=== PATIENT | female | born 1975 | race Caucasian/White ===

== ENCOUNTER 2023-08-18 15:04 | Outpatient (REF) | payer MEDICAID, SELFPAY ==
[2023-08-20 11:48] LABS: C. trachomatis RNA TMA NOT DETECTED (NOT DETECTED); Candida glabrata RNA NOT DETECTED (NOT DETECTED); Candida species RNA NOT DETECTED (NOT DETECTED); N. gonorrhoeae RNA TMA NOT DETECTED (NOT DETECTED); Trichomonas vaginalis RNA NOT DETECTED (NOT DETECTED)
[2023-08-21 08:53] LABS: HPV mRNA E6/E7 rflx Not Detected (Not Detected)
== END 2023-08-18 15:05 | disposition home or self-care (01) ==
LOC: HO.CHCLNP 15:04
PROVIDERS: Visit Provider Advanced Practice Midwife
DX: Z12.4 Encounter for screening for malignant neoplasm of cervix (principal); Z11.51 Encounter for screening for human papillomavirus (HPV); N89.8 Other specified noninflammatory disorders of vagina
CPT/HCPCS: 36415; 81513; 87481; 87491; 87591; 87624; 87661; 88142

== ENCOUNTER 2024-05-12 11:29 | Outpatient (REF) | payer MEDICAID, SELFPAY ==
[2024-05-12 14:16] LABS: MANUAL DIFF FLAG NO
[2024-05-12 14:26] LABS: Basophils Absolute Auto 0.1 X10*3/uL (0.0-0.2); Basophils Percent Auto 0.8 % (0-2); Eosinophils Absolute Auto 0.2 X10*3/uL (0.0-0.4); Eosinophils Percent Auto 2.3 % (0-4); Hematocrit 43.4 % (37.0-47.0); Hemoglobin 14.7 g/dl (12.0-16.0); Imm Gran Abs Auto 0.05 X10*3/uL (0.00-0.03); Imm Gran Pct Auto 0.6 % (0.0-0.4); Lymphocytes Absolute Auto 2.4 X10*3/uL (1.2-4.9); Lymphocytes Percent Auto 26.2 % (20-40); Mean Corpuscular HGB Conc 33.9 g/dl (31.0-35.0); Mean Corpuscular Hemoglobin 30.1 pg (27.0-33.0); Mean Corpuscular Volume 88.9 fL (80.0-98.0); Mean Platelet Volume 9.4 fL (9.4-12.3); Monocytes Absolute Auto 0.7 X10*3/uL (0.1-1.2); Monocytes Percent Auto 7.5 % (2-11); Neutrophils Absolute Auto 5.7 x10*3/uL (2.0-8.3); Neutrophils Percent Auto 62.6 % (45-73); Platelet Count 346 X10*3/uL (160-400); Red Blood Count 4.88 X10*6/uL (4.20-5.50); Red Cell Distribution Width 12.7 % (11.0-16.0); White Blood Count 9.1 X10*3/uL (4.8-10.8)
[2024-05-12 15:05] LABS: Alanine Aminotransferase 13 U/L (0-31); Alkaline Phosphatase 76 U/L (39-117); Anion Gap 15 (12-20); Aspartate Amino Transferase 12 U/L (5-31); Bilirubin Total 0.3 mg/dL (0.0-1.0); Blood Urea Nitrogen 12 mg/dL (9-16); Calcium 9.5 mg/dL (8.4-10.2); Carbon Dioxide 22 mmol/L (22-29); Chloride 105 mmol/L (96-108); Estimated Glomerular Filt Rate > 60; Glucose Random 98 mg/dL (60-115); Potassium 3.6 mmol/L (3.3-5.1); Sodium 138 mmol/L (135-145); Total Protein 6.9 g/dL (6.5-8.0)
[2024-05-12 15:12] LABS: Folate 10.8 ng/mL (> or = 4.0); Vitamin B12 385 pg/mL (200-900)
[2024-05-12 15:23] LABS: TSH reflex Free T4 0.59 uIU/mL (0.32-4.0)
[2024-05-16 14:12] LABS: Methylmalonic Acid 129 nmol/L (55-335)
== END 2024-05-12 11:30 | disposition home or self-care (01) ==
LOC: HO.CHCLDS 11:29
PROVIDERS: Visit Provider Family Medicine
DX: R42 Dizziness and giddiness (principal)
CPT/HCPCS: 36415; 80053; 82607; 82746; 83921; 84443; 85025

== ENCOUNTER 2024-08-23 13:32 | Outpatient (REF) | payer MEDICAID, SELFPAY ==
[2024-08-25 06:23] LABS: Lyme Abs Screen <0.90 index
== END 2024-08-23 13:33 | disposition home or self-care (01) ==
LOC: HO.CHCLDS 13:32
PROVIDERS: Visit Provider Student in an Organized Health Care Education/Training Program
DX: R42 Dizziness and giddiness (principal)
CPT/HCPCS: 36415; 86617; 86618

== ENCOUNTER 2025-05-30 09:47 | Outpatient (REF) | payer MEDICAID, SELFPAY ==
--- OUTSIDE RECORDS SUMMARY | 2025-05-30 09:00 | XMS_ITS | Encounter Summary ---
Author Organization [employer] Address [address] [place] [address] 7 [place] [address] Care Team Providers Care Insurance Advisor Name Role Phone María Barron MD Primary Care Provider [phone] Reason for Referral * Consultation (Routine) - Pending Review Specialty Diagnoses / Procedures Referred By Aime gamboa Referred To Contact Psychiatry Diagnoses Anxiety María Barron MD [address] [place] [address] Phone: tel: fax: Referral ID Status Reason Start Date Expiration Date Visits Requested Visits Authorized [id number] Pending Review Specialty Services Required 05/30/2025 11/28/2026 1 1 Reason for Visit * Reason Comments Diabetes fu Encounter Details Date Type Department Care Team ([facility] st Contact Info) Description 05/30/2025 9:00 AM EDT Office Visit [facility] MED & PEDS [address] [place], [place] [phone] María Barron MD [address] [place], [place] [phone] Primary hypertension (Primary Dx); Anxiety; Vertigo; Spasm of thoracic back muscle; Screening for colon cancer Social History Tobacco Use Types Packs/Day Years Used Date Smoking Tobacco: Former Cigarettes 0.5 14.4 1 - 10/29/2024 Smokeless Tobacco: Never Tobacco Cessation:Counseling Given: Not Answered Alcohol Use Standard Drinks/Week Comments Never 0 (1 standard drink = 0.6 oz pur e alcohol) very occasional Depression Answer Date Recorded Patient Health Questionnaire-9 Score 0 10/20/2024 Patient Health Questionnaire-9 Score 0 10/20/2024 Last PHQ-9: Questionnaire Data Not on file 0 10/20/2024 Housing Stability Answer Date Recorded What is your housing situation today? I have jaycob ryan 05/22/[address] you li ve. Do you have problems with any of the following? None of the above 05/22/2025 Food Insecurity Answer Date Recorded Within the past 12 months, y ou worried that your food would run out before you got money to buy more: Never True 05/22/2025 Within the past 12 months,th e food you bought just didn't last and you didn't have enough money to get more: Never True Transportation Answer Date Recorded In the past 12 months, has l ack of transportation kept you from medical appts, meetings, work or from getting things needed for daily living? No 05/22/2025 Utilities Answer Date Recorded In the past 12 months, has t he electric, gas, oil or water company threatened to shut off services in your home? No 05/22/2025 Depression Answer Date Recorded Patient Health Questionnaire-2 Score 0 10/20/2024 Internet Access Answer Date Recorded Internet Access Q1 Yes 05/22/2025 Internet Access Q2 Not on file 05/22/2025 Comments No Sex and Gender Information Value Date Recorded Sex Assigned at Female 07/28/2022 10:22 AM EDT Legal Sex Female 10:22 AM EDT Gender Identity Female 07/28/2022 10:22 AM EDT Sexual Orientation Straight 07/28/2022 10 :22 AM EDT documented as of this encounter Last Filed Vital Signs Vital Sign Reading Time Taken Comments Blood Pressure 133/86 05/30/2025 9:15 AM EDT Pulse 97 05/30/2025 9:15 AM EDT Temperature 36.4 C (97.6 F) 05/30/2025 9:15 AM EDT Respiratory Rate 18 05/30/2025 9:15 AM EDT Oxygen Saturation 96% 05/30/2025 9:15 AM EDT Inhaled Oxygen Concentration - - Weight 91.6 kg (202 lb) 05/30/2025 9:15 AM EDT Height 160 cm (5' 3 ) 05/30/2025 9:15 AM EDT Body Mass Index 35.78 05/30/2025 9:15 AM EDT documented in this encounter Progress Notes * María Barron MD - 05/30/2025 9:00 AM EDT Subjective Patient ID: Vlad Rodas is a 50 y.o. female who presents for HTN Hypertension This is a chronic problem. The problem is unchanged. The problem is controlled. Pertinent negativesinclude no anxiety, blurred vision, chest pain, headaches, malaise/fatigue, neck pain, orthopnea, palpitations, PND, shortness of breath or sweats. Risk factors for coronary artery disease include obesity and sedentary lifestyle. Review of Systems Constitutional: Negative. Negative for malaise/fatigue. Eyes: Negative for blurred vision. Respiratory: Negative. Negative for shortness of breath. Cardiovascular: Negative for chest pain, palpitations, orthopnea and PND. Gastrointestinal: Negative. Genitourinary: Negative. Musculoskeletal: Negative for neck pain. Neurological: Negative for headaches. Psychiatric/Behavioral: The patient is nervous/anxious. Objective Physical Exam Constitutional: Appearance: Normal appearance. Cardiovascular: Rate and Rhythm: Normal rate and regular rhythm. Pulses: Normal pulses. Heart sounds: Normal heart sounds. Pulmonary: Effort: Pulmonary effort is normal. Abdominal: General: Abdomen is flat. Neurological: Mental Status: She is alert. Assessment/Plan Diagnoses and all orders for this visit: Primary hypertension Comments: Well controlled No changes in meds Maintain a low-sodium diet (less than 2 grams per day). Maintain a regular cardiovascular exercise program. Advised to maintain a low-fat, low-cholesterol diet. Counseled regarding importance of weight loss. Counseled re: potential co-morbidities including cardiovascular disease. Orders: - Basic Metabolic Panel; Future - Lipid Panel, Standard; Future - Hepatic Function Panel; Future Anxiety - ALPRAZolam (Xanax) 0.5 MG tablet; TAKE 1 TABLET BY MOUTH BID - Referral to Psychiatry; Future Vertigo Comments: Mostly related to anxiety xanax increased to BID referred to N Orders: - POCT Glucose Spasm of thoracic back muscle Comments: Started On Flexeril and Ibuprofen Started on Topical volatren Gel Advised Warm compress and Stretching Orders: - cyclobenzaprine (Flexeril) 10 MG tablet; Take 1 tablet (10 mg) by mouth at bedtime for 10 days. Screening for colon cancer - Cologuard?? colon cancer screening documented in this encounter Plan of Treatment Upcoming Encounters Date Type Department Care Team (Late st Contact Info) Description 06/19/2025 10:00 AM EDT Telemedicine [facility] MED & PEDS [address] [place] [address] Donna Upton, KAJAL [address] [place] [address] 06/28/2025 8:45 AM EDT Telemedicine [facility] MED & PEDS [address] [place] [address] María Barron MD [address] [place] [address] Scheduled Orders Name Type Priority Associated Diagnoses Orde r Schedule Cologuard colon cancer screening Lab Routine Screening for colon cancer Ordered: 05/30/2025 Basic Metabolic Panel Lab Routine Primary hypertension Expected: 05/30/2025 (Approximate), Expires: 05/30/2026 Lipid Panel, Standard Lab Routine Primary hypertension Expected: 05/30/2025 (Approximate), Expires: 05/30/2026 Hepatic Function Panel Lab Routine Primary hypertension Expected: 05/30/2025 (Approximate), Expires: 05/30/2026 Scheduled Referrals Name Type Priority Associated Diagnoses Order Schedule Referral to Psychiatry Outpatient Referral Routine Anxiety Expected: 05/30/2025 (Approximate), Expires: 11/27/2026 documented as of this encounter Procedures Procedure Name Priority Date/Time Associated Diagnosis Comments POCT GLUCOSE Routine 05/30/2025 9:22 AM EDT Vertigo documented in this encounter Results * POCT Glucose (05/30/2025 9:22 AM EDT) Glucose Blood, POC 108 60 - 200 mg/dL QC Media Lot # [id number] Lot# Expiration Date Blood Capillary blood specimen / Unknown 05/30/2025 9:22 AM EDT María Barron MD POINT OF CARE TEST ENTER/EDIT OR DERABLES Final Result documented in this encounter Visit Diagnoses Diagnosis Primary hypertension- Primary Unspecified essential hypertension Anxiety Anxiety state, unspecified Vertigo Dizziness and giddiness Spasm of thoracic back muscle Screening for colon cancer Special screening for malignant neoplasms, colon documented in this encounter Additional Health Concerns Assessment Noted Time PHQ-9 Depression Total Score: 0 10/20/19 25 10:22 AM EST documented as of this encounter Care Teams Insurance Advisor Relationship Specialty Start Date End Date María Barron MD [address] [place] [id number] PCP - General Family Medicine 10/04/13 documented as of this encounter
--- OUTSIDE RECORDS SUMMARY | 2025-05-30 10:57 | XMS_ITS | Encounter Summary ---
Author Organization [employer] Address [address] [facility] 7t [place] [address] Care Team Providers Care Lean Specialist Name Role Phone María Barron MD Primary Care Provider [phone] Reason for Visit * Reason Comments Med Refill Encounter Details Date Type Department Care Team ([facility] Contact Info) Description 01/16/2025 Refill [facility] MED & PEDS [address] [place], [place] [phone] María Barron MD [address] [place] [address] Hypertension, unspecified type Social History Tobacco Use Types Packs/Day Years Used Date Smoking Tobacco: Every Day Cigarettes 0.5 15 Started: 06/28/2012 Smokeless Tobacco: Never Alcohol Use Standard Drinks/Week Comments Never 0 (1 standard drink = 0.6 oz pur e alcohol) very occasional Depression Answer Date Recorded Patient Health Questionnaire-9 Score 0 10/20/2024 Patient Health Questionnaire-9 Score 0 10/20/2024 Last PHQ-9: Questionnaire Data Not on file 0 10/20/2024 Housing Stability Answer Date Recorded What is your housing situation today? I have jaycob ryan 12/21/[address] you li ve. Do you have problems with any of the following? None of the above 12/21/2023 Food Insecurity Answer Date Recorded Within the past 12 months, y ou worried that your food would run out before you got money to buy more: Never True 12/21/2023 Within the past 12 months,th e food you bought just didn't last and you didn't have enough money to get more: Never True Transportation Answer Date Recorded In the past 12 months, has l ack of transportation kept you from medical appts, meetings, work or from getting things needed for daily living? No 12/21/2023 Utilities Answer Date Recorded In the past 12 months, has t he electric, gas, oil or water company threatened to shut off services in your home? No 12/21/2023 Depression Answer Date Recorded Patient Health Questionnaire-2 Score 0 10/20/2024 Comments No Sex and Gender Information Value Date Recorded Sex Assigned at Female 07/28/2022 10:22 AM EDT Legal Sex Female 10:22 AM EDT Gender Identity Female 07/28/2022 10:22 AM EDT Sexual Orientation Straight 07/28/2022 10 :22 AM EDT documented as of this encounter Plan of Treatment Upcoming Encounters Date Type Department Care Team (Late st Contact Info) Description 06/19/2025 10:00 AM EDT Telemedicine [facility] MED & PEDS [address] [place] [address] Donna Upton, KAJAL [address] [place] [address] 06/28/2025 8:45 AM EDT Telemedicine [facility] MED & PEDS [address] [place] [address] María Barron MD [address] [place] [address] documented as of this encounter Visit Diagnoses Diagnosis Hypertension, unspecified type documented in this encounter Additional Health Concerns Assessment Noted Time PHQ-9 Depression Total Score: 0 10/20/19 25 10:22 AM EST documented as of this encounter Care Teams Lean Specialist Relationship Specialty Start Date End Date María Barron MD [address] [place] [address] PCP - General Family Medicine 10/04/13 documented as of this encounter
--- OUTSIDE RECORDS SUMMARY | 2025-05-30 10:57 | XMS_ITS | Encounter Summary ---
Author Organization [employer] Address [address] [facility] 7t [place] [address] Care Team Providers Care Canary Breeder Name Role Phone María Barron MD Primary Care Provider [phone] Reason for Visit * Reason Comments Med Refill Encounter Details Date Type Department Care Team ([facility] Contact Info) Description 10/26/[address] [facility] MED & PEDS [address] [place], [place] [phone] María Barron MD [address] [place] [address] Anxiety Social History Tobacco Use Types Packs/Day Years Used Date Smoking Tobacco: Every Day Cigarettes 0.5 15 Started: 06/28/2012 Smokeless Tobacco: Never Alcohol Use Standard Drinks/Week Comments Never 0 (1 standard drink = 0.6 oz pur e alcohol) very occasional Housing Stability Answer Date Recorded What is your housing situation today? I have jaycob ryan 07/13/[address] you li ve. Do you have problems with any of the following? None of the above 07/13/2023 Food Insecurity Answer Date Recorded Within the past 12 months, y ou worried that your food would run out before you got money to buy more: Never True 07/13/2023 Within the past 12 months,th e food you bought just didn't last and you didn't have enough money to get more: Never True Transportation Answer Date Recorded In the past 12 months, has l ack of transportation kept you from medical appts, meetings, work or from getting things needed for daily living? No 07/13/2023 Utilities Answer Date Recorded In the past 12 months, has t he electric, gas, oil or water company threatened to shut off services in your home? No 07/13/2023 Comments No Sex and Gender Information Value [...] Description 06/19/2025 10:00 AM EDT Telemedicine [facility] MED & PEDS [address] [place] [address] Donna Upton RN [address] [place] [address] 06/28/2025 8:45 AM EDT Telemedicine [facility] MED & PEDS [address] [place] [address] María Barron MD [address] [place] [address] documented as of this encounter Visit Diagnoses Diagnosis Anxiety Anxiety state, unspecified documented in this encounter Care Teams Canary Breeder Relationship Specialty Start Date End Date María Barron MD [address] [place] [address] PCP - General Family Medicine 10/04/13 documented as of this encounter
--- OUTSIDE RECORDS SUMMARY | 2025-05-30 10:57 | XMS_ITS | Encounter Summary ---
Author Organization [facility] Address [address] [place] [address] Phone Care Team Providers Care Rescue Worker Name Role Phone María Barron MD Primary Care Provider [phone] Encounter Details Date Type Department Care Team (Late st Contact Info) Description 04/23/2021 Procedure Pass [facility] Cat Scan [address] [place] [address] Social History Tobacco Use Types Packs/Day Years Used Date Smoking Tobacco: Every Day Cigarettes Alcohol Use Standard Drinks/Week Comments Yes 0 (1 standard drink = 0.6 oz pur e alcohol) occ Comments Unknown Sex and Gender Information Value Date Recorded Sex Assigned at Female 12/01/2023 8:50 AM EST Legal Sex Female 11:04 AM EDT Gender Identity Female 12/01/2023 8:50 AM EST Sexual Orientation Straight 12/01/2023 8: 50 AM EST documented as of this encounter Functional Status * Calculated C-SSRS Risk Score (Lifetime/Recent) Answer Date of Assessment Author No Risk Indicated 04/23/2021 11:10 AM EDT Dominique Kimball RN * [place] Suicide Severity Rating Scale (Screener/Recent Self-Report) Question Answer Date of Assessment Author 1. Wish to be (Past 1 Month) No 021 11:10 AM EDT Dominique Kimball RN 2. Non-Specific Active Suici del Thoughts (Past 1 Month) No 04/23/2021 11:10 AM EDT Franko Kimball RN 6. Suicidal Behavior (Lifetime) No 11:10 AM EDT Dominique Kimball RN documented as of this encounter Plan of Treatment Not on file documented as of this encounter Visit Diagnoses Not on filedocumented in this encounter Additional Health Concerns Infection Onset Date Last Indicated Resolved Time CoV-Risk 06/09/2022 06/09/2022 06/20/2022 1:23 AM EDT documented as of this encounter Care Teams Rescue Worker Relationship Specialty Start Date End Date María Barron MD [address] [place] [address] PCP - General Family Medicine 04/23/21 documented as of this encounter Additional Source Comments The information contained in this document represents components of the legal health record. It is not the complete legal health record.[facility]
--- OUTSIDE RECORDS SUMMARY | 2025-05-30 10:57 | XMS_ITS | Encounter Summary ---
Author Organization [facility] Address [address] [place] [address] Phone Care Team Providers Care Bread Wrapper Name Role Phone María Barron MD Primary Care Provider [phone] Encounter Details Date Type Department Care Team (Late st Contact Info) Description 02/04/2022 Procedure Pass [facility] Cat Scan [address] [place] [address] Social History Tobacco Use Types Packs/Day Years [...] Date of Assessment Author No Risk Indicated 02/04/2022 7:46 AM EDT Jewel Godfrey * [place] Suicide Severity Rating Scale (Screener/Recent Self-Report) Question Answer Date of Assessment Author 1. Wish to be (Past 1 Month) No 022 7:46 AM GASPERT Jewel Godfrey 2. Non-Specific Active Suici del Thoughts (Past 1 Month) No 02/04/2022 7:46 AM GASPERT Abel Godfrey 6. Suicidal Behavior (Lifetime) No 7:46 AM EDT Jewel Godfrey documented as of this encounter Plan of Treatment Not on file documented as of this encounter Visit Diagnoses Not on filedocumented in this encounter Additional Health Concerns Infection Onset Date Last Indicated Resolved Time CoV-Risk 06/09/2022 06/09/2022 06/20/2022 1:23 AM EDT documented as of this encounter Care Teams Bread Wrapper Relationship Specialty Start Date End Date María Barron MD [address] [place] [address] PCP - General Family Medicine 04/23/21 documented as of this encounter Additional Source Comments The information contained in this document represents components of the legal health record. It is not the complete legal health record.[facility]
--- OUTSIDE RECORDS SUMMARY | 2025-05-30 10:57 | XMS_ITS | Encounter Summary ---
Author Organization [employer] Address [address] [facility] 7t [place] [address] Care Team Providers Care Process Server Name Role Phone María Barron MD Primary Care Provider [phone] Reason for Visit * Reason Comments Med Refill Encounter Details Date Type Department Care Team ([facility] Contact Info) Description 11/25/2023 Refill [facility] MED & PEDS [address] [place] [address] Alcides Ku MD [address] [place] [address] Anxiety Social History Tobacco Use Types Packs/Day [...] Info) Description 06/19/2025 10:00 AM EDT Telemedicine [facility] MED & PEDS [address] [place] [address] Donna Upton RN [address] [place] [address] 06/28/2025 8:45 AM EDT Telemedicine [facility] MED & PEDS [address] [place] [address] María Barron MD [address] [place] [address] documented as of this encounter Visit Diagnoses Diagnosis Anxiety Anxiety state, unspecified documented in this encounter Care Teams Process Server Relationship Specialty Start Date End Date María Barron MD [address] [place] [address] PCP - General Family Medicine 10/04/13 documented as of this encounter
--- OUTSIDE RECORDS SUMMARY | 2025-05-30 10:57 | XMS_ITS | Encounter Summary ---
Author Organization [employer] Address [address] [facility] 7t [place] [address] Care Team Providers Care Dormitory Supervisor Name Role Phone María Barron MD Primary Care Provider [phone] Reason for Visit * Reason Onset Date Comments Referral 10/06/2023 Encounter Details Date Type Department Care Team ([facility] Contact Info) Description 10/06/2023 Telephone [facility] CH[facility] MED & PEDS [address] [place] [address] María Barron MD [address] [place] [address] Referral Social History Tobacco Use Types Packs/Day Years [...] AM EDT documented as of this encounter Miscellaneous Notes * Telephone Encounter - Shannon Lyons - 10/06/2023 3:26 PM EST [facility] from [facility] referral [facility] was sent to wrong fax number. Please re fax referral to [phone] documented in this encounter Plan of Treatment Upcoming Encounters Date Type Department Care Team (Late st Contact Info) Description 06/19/2025 10:00 AM EDT Telemedicine [facility] MED & PEDS [address] [place] [address] Donna Upton RN [address] [place] [address] 06/28/2025 8:45 AM EDT Telemedicine [facility] MED & PEDS [address] [place] [address] María Barron MD [address] [place] [address] documented as of this encounter Visit Diagnoses Not on filedocumented in this encounter Care Teams Dormitory Supervisor Relationship Specialty Start Date End Date María Barron MD [address] [place] [address] PCP - General Family Medicine 10/04/13 documented as of this encounter
--- OUTSIDE RECORDS SUMMARY | 2025-05-30 10:57 | XMS_ITS | Encounter Summary ---
Author Organization [employer] Address [address] [place] [address] [address] [place] [address] Care Team Providers Care Switchbox Assembler Name Role Phone María Barron MD Primary Care Provider [phone] Reason for Visit * Reason Onset Date Comments Med Refill 06/03/2023 Encounter Details Date Type Department Care Team (Late Contact Info) Description 06/03/2023 Refill [facility] MED & PEDS [address] [place] [address] María Barron MD [address] [place] [address] Anxiety Social History Tobacco Use Types Packs/Day Years Used Date Smoking Tobacco: Every Day Cigarettes 0.5 12.9 Started: 06/2012 Smokeless Tobacco: Never Alcohol Use Standard Drinks/Week Comments Never 0 (1 standard drink = 0.6 oz pur e alcohol) very occasional Comments Unknown Sex and Gender Information Value Date Recorded Sex Assigned at Female 07/28/2022 10:22 AM EDT Legal Sex Female 10:22 AM EDT Gender Identity Female 07/28/2022 10:22 AM EDT Sexual Orientation Straight 07/28/2022 10 :22 AM EDT documented as of this encounter Plan of Treatment Upcoming Encounters Date Type Department Care Team (Late Contact Info) Description 06/19/2025 10:00 AM EDT Telemedicine [facility] MED & PEDS [address] [place] [address] Donna Upton RN [address] [place] [address] 06/28/2025 8:45 AM EDT Telemedicine [facility] CHC MED & PEDS [address] [place] [address] María Barron MD [address] [place] [address] documented as of this encounter Visit Diagnoses Diagnosis Anxiety Anxiety state, unspecified documented in this encounter Care Teams Switchbox Assembler Relationship Specialty Start Date End Date María Barron MD [address] [place] [id number] PCP - General Family Medicine 10/04/13 documented as of this encounter
--- OUTSIDE RECORDS SUMMARY | 2025-05-30 10:57 | XMS_ITS | Encounter Summary ---
Author Organization [employer] Address [address] [facility] 7t [place] [address] Care Team Providers Care Corporate Treasurer Name Role Phone María Barron MD Primary Care Provider [phone] Reason for Visit * Reason Onset Date Comments ER Follow-up 12/03/2023 Encounter Details Date Type Department Care Team ([facility] st Contact Info) Description 12/03/2023 Telephone [facility] MEDICINE 230 [place] [address] María Barron MD [address] [place], [place] [id number] ER Follow-up Social History Tobacco Use Types Packs/Day Years [...] encounter Miscellaneous Notes * Telephone Encounter - Sheila Quispe RN - 12/07/2023 1:49 PM EDT Placed call to pt regarding message below. Pt has PE scheduled for 12/29/23 with PCP and states can wait until she seen PCP. Pt was concerned d/t CT scan results from ED stating enlarged liver. Pt was reassured on results. Pt informed that all it is indicating is basically a fatty liver. Pt advised on incorporating a diet low in fat and exercise to decrease the amount of fat on her liver. Pt reassured that with lifestyle recommendations she can improve the conditions of her fatty liver. Pt verbalized understanding and agrees with plan. * Telephone Encounter - Dharmesh Pascal - 12/03/2023 9:30 AM EST Patient calling to report ED visit on : Date: 11/30 Hospital: [facility] Seen for: Back pain Patient advised will forward to team nurse for follow up Patient is concerned with the information that was on the discharge paperwork that states has a enlarged liver documented in this encounter Plan of Treatment Upcoming Encounters Date Type Department Care Team (Late st Contact Info) Description 06/19/2025 10:00 AM EDT Telemedicine [facility] MED & PEDS 505 [place] [address] Donna Upton, RN 505 [place] [address] 06/28/2025 8:45 AM EDT Telemedicine [facility] MED & PEDS [address] [place] [address] María Barron MD 505 [place] [address] documented as of this encounter Visit Diagnoses Not on filedocumented in this encounter Care Teams Corporate Treasurer Relationship Specialty Start Date End Date María Barron MD [address] [place] [address] PCP - General Family Medicine 10/04/13 documented as of this encounter
--- OUTSIDE RECORDS SUMMARY | 2025-05-30 10:57 | XMS_ITS | Encounter Summary ---
Author Organization [employer] Address [address] [facility] [address] 7t [place] [address] Care Team Providers Care Manufacturing Support Engineer Name Role Phone María Barron MD Primary Care Provider [phone] Encounter Details Date Type Department Care Team ([facility] st Contact Info) Description 01/17/2025 Orders Only [facility] MED & PEDS 505 [place], [place] [phone] María Barron MD 505 [place] [address] Social History Tobacco Use Types Packs/Day Years [...] [facility] MED & PEDS 505 [place] [address] Donna Upton RN 505 [place] [address] 06/28/2025 8:45 AM EDT Telemedicine [facility] MED & PEDS 505 [place] [address] María Barron MD 505 [place] [address] documented as of this encounter Visit Diagnoses Not on filedocumented in this encounter Additional Health Concerns Assessment Noted Time PHQ-9 Depression Total Score: 0 10/20/19 10:22 AM EST documented as of this encounter Care Teams Manufacturing Support Engineer Relationship Specialty Start Date End Date María Barron MD 230 [place] [address] PCP - General Family Medicine 10/04/13 documented as of this encounter
--- OUTSIDE RECORDS SUMMARY | 2025-05-30 10:57 | XMS_ITS | Encounter Summary ---
Author Organization [employer] Address 75 [facility] 7t [place] [address] Care Team Providers Care Reel Stripper Name Role Phone María Barron MD Primary Care Provider [phone] Reason for Visit * Reason Onset Date Comments Call Back Request 11/13/2023 Encounter Details Date Type Department Care Team ([facility] st Contact Info) Description 11/13/2023 Telephone [facility] MEDICINE 230 [place] [address] María Barron MD [address] [place] [address] Call Back Request Social History Tobacco Use Types Packs/Day Years [...] encounter Miscellaneous Notes * Telephone Encounter - Sandy Fagan - 12/01/2023 3:22 PM EST Referral faxed to [facility] for review. * Telephone Encounter - Cathy Miller CNM - 11/13/2023 1:52 PM EST Referred to [facility] for fibroids which have increased in size. Please see referral notes. If unable to be seen at [facility], please ask referrals where else she can be seen. Thanks! * Telephone Encounter - Dharmesh Pascal - 11/13/2023 11:43 AM EST Tc from Mitra Cross from [facility] [employer] women requesting a call back for clarification on why the patient was referred to them and to notify the PCP that they do not accept Medicaid insurance please call Mitra at [phone] documented in this encounter Plan of Treatment Upcoming Encounters Date Type Department Care Team (Late st Contact Info) Description 06/19/2025 10:00 AM EDT Telemedicine [facility] MED & PEDS 505 [place] [address] Donna Upton, KAJAL 505 [place] [address] 06/28/2025 8:45 AM EDT Telemedicine [facility] MED & PEDS 505 [facility] [address] María Barron MD [address] [place] [address] documented as of this encounter Visit Diagnoses Not on filedocumented in this encounter Care Teams Reel Stripper Relationship Specialty Start Date End Date María Barron MD [address] [place] [address] PCP - General Family Medicine 10/04/13 documented as of this encounter
--- OUTSIDE RECORDS SUMMARY | 2025-05-30 10:57 | XMS_ITS | Encounter Summary ---
Author Organization [email or web address] Address 75 [facility] 7t [place] [address] Care Team Providers Care Needle Grinder Name Role Phone María Barron MD Primary Care Provider [phone] Reason for Visit * Reason Onset Date Comments pre op 03/09/2025 Encounter Details Date Type Department Care Team ([facility] Contact Info) Description 03/09/2025 Telephone [facility] CH[facility] MED & PEDS 505 [place] [address] María Barron MD 505 [place] [address] pre op Social History Tobacco Use Types Packs/Day Years [...] your housing situation today? I have jaycob sing 12/21/[address] you li [...] encounter Miscellaneous Notes * Telephone Encounter - Jaja Arevalo - 03/14/2025 9:11 AM EDT Rosa at [facility] agreed to pre op appointment on 04/18/25 * Telephone Encounter - aJja Arevalo - 03/09/2025 11:47 AM EDT Outgoing call to pt and facility to inform of pre op. No answer. Left voicemail. Investigation Specialist cancelled follow up appointment on 04/19/25 and scheduled pre op & fu on 04/18/25 with pt PCP Appointment reminder letter mailed. * Telephone Encounter - Doretha Ramirez - 03/09/2025 10:38 AM EDT Date of Surgery: 05/08/25 Surgical procedure being done: Cataract Surgery Left Eye Type of anesthesia: local anesthesia Lab needed: No EKG: No Surgeon's name: Dr. Valentin Facility name: [facility] Surgeon's office number: [phone] ext [phone] Surgeon's office fax number: [phone] Contact name (person you spoke with): Rosa Last office note from surgeon requested: No Send Message to Jaja Arevalo and Adal Wesley documented in this encounter Plan of Treatment Upcoming Encounters Date Type Department Care Team (Late st Contact Info) Description 06/19/2025 10:00 AM EDT Telemedicine [facility] MED & PEDS 505 [place] [address] Donna Upton RN 505 [place] [address] 06/28/2025 8:45 AM EDT Telemedicine [facility] MED & PEDS 505 [place] [address] María Barron MD 505 [place] [address] documented as of this encounter Visit Diagnoses Not on filedocumented in this encounter Additional Health Concerns Assessment Noted Time PHQ-9 Depression Total Score: 0 10/20/19 25 10:22 AM EST documented as of this encounter Care Teams Needle Grinder Relationship Specialty Start Date End Date María Barron MD 230 [place] [address] PCP - General Family Medicine 10/04/13 documented as of this encounter
--- OUTSIDE RECORDS SUMMARY | 2025-05-30 10:57 | XMS_ITS | Encounter Summary ---
Author Organization [employer] Address 75 [facility] 7t [place] [address] Care Team Providers Care Motorized Squad Captain Name Role Phone María Barron MD Primary Care Provider [phone] Reason for Visit * Reason Onset Date Comments Med Refill 07/31/2023 Encounter Details Date Type Department Care Team ([facility] st Contact Info) Description 07/31/2023 Refill [facility] MED & PEDS 505 [place], [place] [phone] María Barron MD 505 [place] [address] Anxiety Social History Tobacco Use Types Packs/Day [...] services in your home? No 07/13/2023 Comments Unknown Sex and Gender Information Value [...] 06/19/2025 10:00 AM EDT Telemedicine [facility] MED & PEDS 505 [place] [address] Donna Upton RN 505 [place] [address] 06/28/2025 8:45 AM EDT Telemedicine [facility] MED & PEDS 505 [place] [address] María Barron MD 505 [place] [address] documented as of this encounter Visit Diagnoses Diagnosis Anxiety Anxiety state, unspecified documented in this encounter Care Teams Motorized Squad Captain Relationship Specialty Start Date End Date María Barron MD [address] [place] [address] PCP - General Family Medicine 10/04/13 documented as of this encounter
--- OUTSIDE RECORDS SUMMARY | 2025-05-30 10:57 | XMS_ITS | Encounter Summary ---
Author Organization [employer] Address 75 [facility] 7t [place] [address] Care Team Providers Care Director Of Catering Name Role Phone María Barron MD Primary Care Provider Reason for Visit * Reason Onset Date Comments Nurse Triage 03/08/2025 Encounter Details Date Type Department Care Team ([facility] Contact Info) Description 03/08/2025 Telephone [facility] MEDICINE 230 [place] [address] María Barron MD [address] [place] [address] Nurse Triage Social History Tobacco Use Types Packs/Day Years [...] is your housing situation today? I have jaycoborlin ryan 12/21/[address] you [...] encounter Miscellaneous Notes * Telephone Encounter - Pham Engle RN - 03/08/2025 9:25 AM EDT Triage call Pt reports right ear congestion and itchiness for a week. Last 3 days when pressure applied to outside of ear it is painful, now swallowing is painful as well. Neg for fever. Pt does use flonase nasal spray daily. ASK apt in [facility] today at 1100am. Pt agrees with disposition. Pt is advised to try ice or heat to outside of ear for relief of discomfort. Insurance is verified as active prior to booking. Protocol Used: Ear - Congestion (Adult) Protocol-Based Disposition: See in Office or Video Visit Today Positive Triage Questions: * Earache lasts > 1 hour * Patient wants to be seen * All higher-acuity triage questions were negative Care Advice Discussed: * Reassurance and Education - Ear Congestion * Reasons To Call Back - Ear congestion lasts over 3 days - Ear pain or fever occurs - You become worse * Telephone Encounter - Gracia Infante - 03/08/2025 9:16 AM EDT Symptoms: Ear Congestion Without Pain, Earache Outcome: Schedule a same-day appointment or talk to a nurse or provider today Reason: Caller denied all higher acuity questions The caller accepted this outcome. documented in this encounter Plan of Treatment Upcoming Encounters Date Type Department Care Team (Late st Contact Info) Description 06/19/2025 10:00 AM EDT Telemedicine [facility] MED & PEDS 505 [place] [address] Donna Upton, RN 505 [place] [address] 06/28/2025 8:45 AM EDT Telemedicine [facility] MED & PEDS 505 [place] [address] María Barron MD 505 [place] [address] documented as of this encounter Visit Diagnoses Not on filedocumented in this encounter Additional Health Concerns Assessment Noted Time PHQ-9 Depression Total Score: 0 10/20/19 25 10:22 AM EST documented as of this encounter Care Teams Director Of Catering Relationship Specialty Start Date End Date María Barron MD [address] [place] [address] PCP - General Family Medicine 10/04/13 documented as of this encounter
--- OUTSIDE RECORDS SUMMARY | 2025-05-30 10:57 | XMS_ITS | Encounter Summary ---
Author Organization [employer] Address [address] [place] [address] 7 [place] [address] Care Team Providers Care Security Officers And Guards Name Role Phone María Barron MD Primary Care Provider [phone] Reason for Visit * Reason Onset Date Comments Med Refill 06/03/2023 Encounter Details Date Type Department Care Team (Late Contact Info) Description 06/03/2023 Refill [facility] MED & PEDS [address] [place] [address] María Barron MD 505 [place] [address] Anxiety Social History Tobacco Use Types Packs/Day [...] Info) Description 06/19/2025 10:00 AM EDT Telemedicine [facility] MED & PEDS [address] [place] [address] Donna Upton RN 505 [place] [address] 06/28/2025 8:45 AM EDT Telemedicine [facility] CH[facility] MED & PEDS [address] [place] [address] María Barron MD 505 [place] [address] documented as of this encounter Visit Diagnoses Diagnosis Anxiety Anxiety state, unspecified documented in this encounter Care Teams Security Officers And Guards Relationship Specialty Start Date End Date María Barorn MD [address] [place] [address] PCP - General Family Medicine 10/04/13 documented as of this encounter
--- OUTSIDE RECORDS SUMMARY | 2025-05-30 10:57 | XMS_ITS | Encounter Summary ---
Author Organization [employer] Address [address] [facility] 7 [place] [address] Care Team Providers Care Liquefied Natural Gas Plant Operator Name Role Phone María Barron MD Primary Care Provider [phone] Reason for Visit * Reason Onset Date Comments Med Refill 11/25/2023 Encounter Details Date Type Department Care Team ([facility] Contact Info) Description 11/25/2023 Refill [facility] MED & PEDS 505 [place] [address] Alcides Ku MD 505 [place] [address] Anxiety Social History Tobacco Use Types Packs/Day [...] Info) Description 06/19/2025 10:00 AM EDT Telemedicine [facility] MED & PEDS 505 [place] [address] Donna Upton, KAJAL 505 [place] [address] 06/28/2025 8:45 AM EDT Telemedicine [facility] MED & PEDS 505 [place] [address] María Barron MD 505 [place] [address] documented as of this encounter Visit Diagnoses Diagnosis Anxiety Anxiety state, unspecified documented in this encounter Care Teams Liquefied Natural Gas Plant Operator Relationship Specialty Start Date End Date María Barron MD [address] [place] [address] PCP - General Family Medicine 10/04/13 documented as of this encounter
--- OUTSIDE RECORDS SUMMARY | 2025-05-30 10:57 | XMS_ITS | Encounter Summary ---
Author Organization [employer] Address 75 [facility] 7t [place] [address] Care Team Providers Care Supply Analyst Name Role Phone María Barron MD Primary Care Provider [phone] Reason for Visit * Reason Onset Date Comments Appointment Request 07/14/2023 Encounter Details Date Type Department Care Team ([facility] Contact Info) Description 07/14/2023 Telephone [facility] MEDICINE 230 [place] [address] María Barron MD [address] [place] [address] Appointment Request Social History Tobacco Use Types Packs/Day [...] encounter Miscellaneous Notes * Telephone Encounter - Jacqueline Mcgarry - 07/14/2023 10:09 AM EDT Tc from patient requesting to r/s FOCUS PULLER appt from 08/12/23. Details: FOCUS PULLER [place], KAREL 7 documented in this encounter Plan of Treatment Upcoming Encounters Date Type Department Care Team (Late st Contact Info) Description 06/19/2025 10:00 AM EDT Telemedicine [facility] MED & PEDS 505 [place] [address] Donna Upton RN 505 [place] [address] 06/28/2025 8:45 AM EDT Telemedicine [facility] MED & PEDS 505 [place] [address] María Barron MD 505 [place] [address] documented as of this encounter Visit Diagnoses Not on filedocumented in this encounter Care Teams Supply Analyst Relationship Specialty Start Date End Date María Barron MD [address] [place] [address] PCP - General Family Medicine 10/04/13 documented as of this encounter
--- OUTSIDE RECORDS SUMMARY | 2025-05-30 10:57 | XMS_ITS | Encounter Summary ---
Author Organization [employer] Address 75 [facility] 7t [place] [address] Care Team Providers Care Automotive Brake Technician Name Role Phone María Barron MD Primary Care Provider [phone] Encounter Details Date Type Department Care Team ([facility] st Contact Info) Description 10/26/2023 Orders Only [facility] MED & PEDS 505 [place] [address] JaramilloAlcides Espinosa MD 505 [place] [address] Social History Tobacco Use Types Packs/Day Years Used Date Smoking Tobacco: Every Day Cigarettes 0.5 15 Started: 06/28/2012 Smokeless Tobacco: Never Alcohol Use Standard Drinks/Week Comments Never 0 (1 standard drink = 0.6 oz pur e alcohol) very occasional Housing Stability Answer Date Recorded What is your housing situation today? I have jaycoborlin ryan 07/13/[address] you [...] Info) Description 06/19/2025 10:00 AM EDT Telemedicine [facility] MED & PEDS 505 [place] [address] Donna Upton RN 505 [place] [address] 06/28/2025 8:45 AM EDT Telemedicine [facility] MED & PEDS 505 [place] [address] María Barron MD 505 [place] [address] documented as of this encounter Visit Diagnoses Not on filedocumented in this encounter Care Teams Automotive Brake Technician Relationship Specialty Start Date End Date María Barron MD [address] [place] [address] PCP - General Family Medicine 10/04/13 documented as of this encounter
--- OUTSIDE RECORDS SUMMARY | 2025-05-30 10:57 | XMS_ITS | Encounter Summary ---
Author Organization [employer] Address 75 [facility] 7t [place] [address] Care Team Providers Care Engineering Professionals Name Role Phone María Barron MD Primary Care Provider [phone] Reason for Visit * Reason Comments Med Refill Encounter Details Date Type Department Care Team ([facility] Contact Info) Description 07/30/[address] [facility] MED & PEDS [address] [place], [place] [phone] María Barron MD 505 [place] [address] Anxiety Social History Tobacco Use Types Packs/Day [...] Info) Description 06/19/2025 10:00 AM EDT Telemedicine [facility] MED & PEDS 505 [place] [address] Donna Upton RN 505 [place] [address] 06/28/2025 8:45 AM EDT Telemedicine [facility] MED & PEDS [address] [place] [address] María Barron MD 505 [place] [address] documented as of this encounter Visit Diagnoses Diagnosis Anxiety Anxiety state, unspecified documented in this encounter Care Teams Engineering Professionals Relationship Specialty Start Date End Date María Barron MD [address] [place] [address] PCP - General Family Medicine 10/04/13 documented as of this encounter
--- OUTSIDE RECORDS SUMMARY | 2025-05-30 10:57 | XMS_ITS | Encounter Summary ---
Author Organization [employer] Address [address] [facility] 7t [place] [address] Care Team Providers Care Wealth Management Manager Name Role Phone María Barron MD Primary Care Provider [phone] Reason for Visit * Reason Onset Date Comments Med Refill 08/16/2024 Encounter Details Date Type Department Care Team ([facility] Contact Info) Description 08/16/2024 Refill [facility] MED & PEDS 505 [place], [place] [phone] María Barron MD 505 [place] [address] Social History Tobacco Use Types Packs/Day Years [...] off services in your home? No 12/21/2023 Comments No Sex and Gender Information Value [...] Description 06/19/2025 10:00 AM EDT Telemedicine [facility] MED & PEDS 505 [place] [address] Donna Upton RN 505 [place] [address] 06/28/2025 8:45 AM EDT Telemedicine [facility] MED & PEDS 505 [place] [address] María Barron MD 505 [place] [address] documented as of this encounter Visit Diagnoses Not on filedocumented in this encounter Care Teams Wealth Management Manager Relationship Specialty Start Date End Date María Barron MD [address] [place] [address] PCP - General Family Medicine 10/04/13 documented as of this encounter
--- OUTSIDE RECORDS SUMMARY | 2025-05-30 10:57 | XMS_ITS | Encounter Summary ---
Author Organization [employer] Address 75 [facility] 7t [place] [address] Care Team Providers Care Drive In Theater Attendant Name Role Phone María Barron MD Primary Care Provider [phone] Reason for Visit * Reason Onset Date Comments Results 09/24/2023 Encounter Details Date Type Department Care Team ([facility] Contact Info) Description 09/24/2023 Telephone [facility] MED & PEDS 505 [place] [address] María Barron MD 505 [place] [address] Results Social History Tobacco Use Types Packs/Day Years [...] encounter Miscellaneous Notes * Telephone Encounter - Jacky Muniz RN - 09/29/2023 9:30 AM EST T/C to pt. For below message, Pt. Verbally agreed and understood. * Telephone Encounter - Cathy Miller CNM - 09/26/2023 9:17 AM EST Referral placed. * Telephone Encounter - Sheila Quispe RN - 09/25/2023 1:10 PM EST Placed call to pt and informed of US results. Pt informed of CNM recommendations and pt agrees to have APPLICATION TRAINER referral placed for consult and possible endometrial bx. Pt informed message will be sent toCLA and pt will be informed of referral information. Pt agrees with plan. * Telephone Encounter - Sheila Quispe RN - 09/25/2023 12:59 PM EST . * Telephone Encounter - Cathy Miller CNM - 09/24/2023 4:28 PM EST Pelvic ultrasound reviewed. It looks like fibroids have increased in size from ultrasound in 2018. Left ovarian cyst is described as simple. These types of cysts are common and usually resolve on their own. If she is still having heavy periods or abnormal bleeding, I would advise APPLICATION TRAINER consult for fibroids to see if endometrial biopsy indicated to evaluate bleeding further. Please let me know if this is the case, and I will place referral. Thanks! * Telephone Encounter - Sheila Quispe RN - 09/24/2023 4:19 PM EST Pt requesting pelvic US results scanned into chart. Please advise. * Telephone Encounter - Shannon Lyons - 09/24/2023 10:33 AM EST TC from pt requesting call back regarding Results. Type of results: US to pelvic Date when done: 09/23 Facility: [facility] documented in this encounter Plan of Treatment Upcoming Encounters Date Type Department Care Team (Late st Contact Info) Description 06/19/2025 10:00 AM EDT Telemedicine [facility] MED & PEDS 505 [place] [address] Donna Upton RN 505 [place] [address] 06/28/2025 8:45 AM EDT Telemedicine [facility] MED & PEDS 505 [place] [address] María Barron MD 505 [place] [address] documented as of this encounter Visit Diagnoses Not on filedocumented in this encounter Care Teams Drive In Theater Attendant Relationship Specialty Start Date End Date María Barron MD [address] [place] [address] PCP - General Family Medicine 10/04/13 documented as of this encounter
--- OUTSIDE RECORDS SUMMARY | 2025-05-30 10:57 | XMS_ITS | Encounter Summary ---
Author Organization [email or web address] Address [address] [place] [address] 7 [place] [address] Care Team Providers Care Due Diligence Coordinator Name Role Phone María Barron MD Primary Care Provider [phone] Reason for Visit * Reason Comments Med Refill Encounter Details Date Type Department Care Team (Late Contact Info) Description 07/01/2023 Refill [facility] MED & PEDS [address] [place] [address] María Barron MD [address] [place] [address] Anxiety Social History Tobacco Use Types Packs/Day [...] Upcoming Encounters Date Type Department Care Team ([facility] Contact Info) Description 06/19/2025 10:00 AM EDT Telemedicine [facility] MED & PEDS [address] [place] [address] Donna Upton RN [address] [place], [place] [phone] 06/28/2025 8:45 AM EDT Telemedicine [facility] MED & PEDS [address] [place] [address] María Barron MD [address] [place] [address] documented as of this encounter Visit Diagnoses Diagnosis Anxiety Anxiety state, unspecified documented in this encounter Care Teams Due Diligence Coordinator Relationship Specialty Start Date End Date María Barron MD [address] [place] [address] PCP - General Family Medicine 10/04/13 documented as of this encounter
--- OUTSIDE RECORDS SUMMARY | 2025-05-30 10:58 | XMS_ITS | Encounter Summary ---
Author Organization [facility] Address [address] [place] [address] Phone Care Team Providers Care Oxyacetylene Torch Operator Name Role Phone María Barron MD Primary Care Provider [phone] Encounter Details Date Type Department Care Team (Late st Contact Info) Description 12/01/2023 Procedure Pass [facility] Cat Scan [address] [place] [address] Social History Tobacco Use Types Packs/Day Years Used Date Smoking Tobacco: Every Day Cigarettes Smokeless Tobacco: Never Alcohol Use Standard Drinks/Week Comments Yes 2 (1 standard drink = 0.6 oz pur e alcohol) Education Answer Date Recorded Are you interested in more education? Not on sierra e 01/24/2023 Are you concerned about learning? Not on file 01/24/2023 No 01/24/2023 No 01/24/2023 Digital Access Answer Date Recorded No 02/24/2023 No 02/24/2023 Reliable internet access at home? Not on file 02/24/2023 Device with a working camera? Not on file Comments No Sex and Gender Information Value Date Recorded Sex Assigned at Female 12/01/2023 8:50 AM EST Legal Sex Female 11:04 AM EDT Gender Identity Female 12/01/2023 8:50 AM EST Sexual Orientation Straight 12/01/2023 8: 50 AM EST documented as of this encounter Functional Status * Calculated C-SSRS Risk Score (Lifetime/Recent) Answer Date of Assessment Author No Risk Indicated 12/01/2023 7:38 AM EST Manoj Queen RN * [place] Suicide Severity Rating Scale (Screener/Recent Self-Report) Question Answer Date of Assessment Author 1. Wish to be (Past 1 Month) No 024 7:38 AM Manoj Gayle RN 2. Non-Specific Active Suici del Thoughts (Past 1 Month) No 12/01/2023 7:38 AM Akosua Gayle RN 6. Suicidal Behavior (Lifetime) No 4 7:38 AM Manoj Gayle RN documented as of this encounter Plan of Treatment Not on file documented as of this encounter Visit Diagnoses Not on filedocumented in this encounter Care Teams Oxyacetylene Torch Operator Relationship Specialty Start Date End Date María Barron MD [address] [place] [address] PCP - General Family Medicine 04/23/21 documented as of this encounter Additional Source Comments The information contained in this document represents components of the legal health record. It is not the complete legal health record.[facility]
--- OUTSIDE RECORDS SUMMARY | 2025-05-30 10:58 | XMS_ITS | Encounter Summary ---
Author Organization [employer] Address [address] [facility] 7t [place] [address] Care Team Providers Care Compliance Examiner Name Role Phone María Barron MD Primary Care Provider [phone] Reason for Visit * Reason Onset Date Comments Med Refill 02/23/2024 Encounter Details Date Type Department Care Team ([facility] st Contact Info) Description 02/23/2024 Telephone [facility] MEDICINE [address] [place] [address] María Barron MD [address] [place], [place] [phone] Med Refill Social History Tobacco Use Types Packs/Day Years [...] encounter Miscellaneous Notes * Telephone Encounter - Samantha Mojica - 02/23/2024 9:56 AM EDT TC from pt requesting medication refill. Medications needing refill : ALPRAZolam (Xanax) 0.5 MG tablet To be sent to: [id number] [place], [place] - [address] [place] [address] AT [facility] documented in this encounter Plan of Treatment Upcoming Encounters Date Type Department Care Team (Late st Contact Info) Description 06/19/2025 10:00 AM EDT Telemedicine [facility] MED & PEDS [address] [place] [address] Donna Upton RN [address] [place] [address] 06/28/2025 8:45 AM EDT Telemedicine [facility] MED & PEDS [address] [place] [address] María Barron MD 505 [place] [address] documented as of this encounter Visit Diagnoses Not on filedocumented in this encounter Care Teams Compliance Examiner Relationship Specialty Start Date End Date María Barron MD [address] [place] [address] PCP - General Family Medicine 10/04/13 documented as of this encounter
--- OUTSIDE RECORDS SUMMARY | 2025-05-30 10:58 | XMS_ITS | Clinical Summary ---
Author Organization [facility] Address [address] [place] [address] Phone Care Team Providers Care Line Assembly Utility Worker Name Role Phone María Barron MD Primary Care Provider [phone] Allergies Active Allergy Reactions Criticality Noted Date Comments Codeine Hives 04/23/2021 Nsaids (Non-Steroidal Anti-I nflammatory Drug) Hives 04/23/2021 Medications dilTIAZem (CARDIZEM) 60 MG immediate release tablet Take 60 mg by mouth 2 (two) times a day. 2 Active hydrALAZINE (APRESOLINE) 10 MG tablet Take 10 mg by mouth 2 (two) times a day. 1 Active hydroCHLOROthia zide (HYDRODIURIL) 25 MG tablet TAKE 1 TABLET BY MOUTH EVERY DAY 1 Active omeprazole (PRILOSEC) 20 MG capsule 2 Active meclizine (ANTIVERT) 25 mg tablet Take 1 tablet (25 mg total) by mouth 4 (four) times a day. 20 tablet 3 Active Additional Information Patient not taking.Reported on 08/28/2023 butalbital-acet aminophen-caffe ine (FIORICET, ESGIC) 50-325-40 mg per tablet Take 1 tablet by mouth every 4 (four) hours as needed for pain (specific location in comments). 10 tablet 3 Active ALPRAZolam (XANAX) 0.5 MG tablet Take 1 tablet (0.5 mg total) by mouth 3 (three) times a day as needed. 10 tablet 3 Active Additional Information Patient taking differently:0.5 mg OralDaily, At night, Reported on 06/13/2024 predniSONE (DELTASONE) 50 MG tablet Take 1 tablet (50 mg total) by mouth daily with breakfast. 5 tablet 3 Active Additional Information Patient not taking.Reported on 06/13/2024 lidocaine (LIDODERM) 5 % Place 1 patch onto the skin daily. Remove & Discard patch within 12 hours or as directed by 30 patch 4 Active Additional Information Patient not taking.Reported on 06/13/2024 cyclobenzaprine (FLEXERIL) 5 MG tablet Take 1-2 tablets (5-10 mg total) by mouth 3 (three) times a day as needed. 12 tablet 4 Active Additional Information Patient not taking.Reported on 07/20/2024 scopolamine (TRANSDERM-SCOP ) 1 [address] over [address] 1 patch onto the skin every third day. Active atorvastatin (LIPITOR) 40 MG tablet Take 1 tablet (40 mg total) by mouth daily. 30 tablet 4 Active albuterol 90 mcg/actuation inhaler Inhale 2 puffs into the lungs every 6 (six) hours as needed. 18 g 4 Active Active Problems Problem Noted Date Diagnosed Date Dizziness 06/13/2024 Uterine leiomyoma 12/01/2023 Social History Tobacco Use Types Packs/Day Years Used Date Smoking Tobacco: Every Day Cigarettes Smokeless Tobacco: Never Tobacco Cessation:Ready to Q uit: Not Asked; Counseling Given: Not Answered Alcohol Use Standard Drinks/Week Comments Not Currently 2 (1 standard drink = 0.6 oz pur e alcohol) occasionally Education Answer Date Recorded Are you interested in more education? Not on sierra e 01/24/2023 Are you concerned about learning? Not on file 01/24/2023 No 01/24/2023 No 01/24/2023 Digital Access Answer Date Recorded No 02/24/2023 No 02/24/2023 Reliable internet access at home? Not on file 02/24/2023 Device with a working camera? Not on file Intimate Partner Violence Answer Date R ecorded Are you denied basic needs s uch as food, clothing, or medical care? No 01/10/2025 In the past 12 months have y ou been in a relationship with a person who hurts, threatens, or tries to control you? No 01/10/2025 Are you denied basic needs s uch as food, clothing, or medical care? No 01/10/2025 In the past 12 months have y ou been in a relationship with a person who hurts, threatens, or tries to control you? No 01/10/2025 Comments No Sex and Gender Information Value Date Recorded Sex Assigned at Female 12/01/2023 8:50 AM EST Legal Sex Female 11:04 AM EDT Gender Identity Female 12/01/2023 8:50 AM EST Sexual Orientation Straight 12/01/2023 8: 50 AM EST Last Filed Vital Signs Vital Sign Reading Time Taken Comments Blood Pressure 124/86 01/10/2025 12:40 PM EDT Pulse 74 01/10/2025 10:40 AM EDT Temperature 36.5 C (97.7 F) 01/10/2025 7:34 AM EDT Respiratory Rate 13 01/10/2025 10:40 AM EDT Oxygen Saturation 98% 01/10/2025 10:40 AM EDT Inhaled Oxygen Concentration - - Weight 99.4 kg (219 lb 1.6 oz) 01/10/2025 7:34 A M EDT Height 160 cm (5' 3 ) 01/10/2025 7:34 AM EDT Body Mass Index 38.81 01/10/2025 7:34 AM EDT Plan of Treatment Health Maintenance Due Date Last Done Comments DEPRESSION SCREENING 1988 SMOKING Hx and SMOKELESS TOBACCO SCREENING 1989 HEPATITIS C SCREENING 1994 HIV ONE-TIME SCREENING (18-65 YEARS) 1994 PNEUMOCOCCAL VACCINES (0-49 years) (1 of 2 - PCV) 1995 MAMMOGRAM 2016 COLOGUARD 2021 COLONOSCOPY 2021 COLORECTAL CANCER SCREENING 2021 FIT TEST 2021 FOBT 2021 SIGMOIDOSCOPY 2021 VIRTUAL COLONOSCOPY 2021 INFLUENZA VACCINE (#1) 2025 COVID-19 VACCINE (3 - season) 2025 05/23/2021, 04/29/2021 POTASSIUM LEVEL 01/10/2026 01/10/2025, 05/29, 12/01/2023, Additional history exists PAP SMEAR 08/18/2026 08/18/2023 SCREENING FOR DIABETES 01/11/2028 01/10/2025, 2023 LIPID PANEL 06/13/2029 06/13/2024, 01/02/2022 Adult Td,Tdap Booster 01/02/2032 01/01/2022 HEPATITIS A VACCINES Aged Out No long er eligible based on patient's age to complete this topic HIB VACCINES Aged Out No longer eligi ble based on patient's age to complete this topic MENINGOCOCCAL VACCINES (ACWY) Aged Out No longer eligible based on patient's age to complete this topic MENINGOCOCCAL VACCINES (B) Aged Out N o longer eligible based on patient's age to complete this topic Medical Devices Not on file Procedures Procedure Name Priority Date/Time Associated Diagnosis Comments BASIC METABOLIC PANEL STAT 01/10/2025 7:50 AM EDT LIPID PANEL Routine 06/13/2024 1:09 PM EDT from Last 3 Months or Most Recently Relevant to Health Maintenance Results * (ABNORMAL) Basic metabolic panel (01/10/2025 7:50 AM EDT) SODIUM 138 136 - 145 mmol/L [facility] CHLORIDE 104 98 - 107 mmol/L [facility] POTASSIUM 3.6 3.4 - 5.1 mmol/L [facility] CO2 24 20 - 31 mmol/L [facility] BUN 15 6 - 23 mg/dL [facility] CREATININE 0.69 0.5 - 1.0 mg/dL [facility] GLUCOSE 108(H) 70 - 100 mg/dL [facility] CALCIUM 9.2 8.5 - 10.5 mg/dL [facility] EGFR 107 >58 mL/min/1.7 3m2 [facility] Comment:Estimated glomerular filtration rate calculated using the CKD-EPI refit equation. ANION GAP 10 3 - 17 mmol/L [facility] Blood 01/10/2025 7:50 AM EDT 01/10/2025 7:55 AM EDT us Chel Rios APRN LAB BLOOD ORDERABLES Final Result Performing Organization Address City/[facility]/[place] [address], [facility] [phone] * (ABNORMAL) Lipid panel (06/13/2024 1:09 PM EDT) HDL 65 40 - 80 mg/dL [facility] CHOLESTEROL 290(H) 0 - 200 mg/dL [facility] TRIGLYCERIDES 323(H) 0 - 150 mg/dL [facility] LDL 160(H) 0 - 130 mg/dL [facility] CARDIAC RISK RATIO 4.5 [facility] 06/13/2024 1:09 PM EDT 06/13/2024 1:36 PM EDT us Roshan Lock MD, MPH LAB BLOOD ORDERABLE S Final Result Performing Organization Address City/[facility]/[place] [address], [facility] [phone] from Last 3 Months or Most Recently Relevant to Health Maintenance Insurance [facility] [employer] C3 ACO C3 ACO C[address] [place] [address] [place] [address] C3 ACO C3 ACO C3 ACO C3 ACO C3 ACO [place] [id number] [facility] [place] [address] Advance Directives For more information, please contact: [phone] (9AM - 5PM [facility], Thursday-Thursday) * Full Code (Latest Code Status on File) Date Activated Date Inactivated Comments 06/13/2024 2:27 PM Question Answer Comments Code Status Confirmed With: Patient Care Teams Line Assembly Utility Worker Relationship Specialty Start Date End Date María Barron MD [address] [place] [address] PCP - General Family Medicine 04/23/21 Additional Source Comments The information contained in this document represents components of the legal health record. It is not the complete legal health record.[facility]
--- OUTSIDE RECORDS SUMMARY | 2025-05-30 10:58 | XMS_ITS | Encounter Summary ---
Author Organization [facility] Address [address] [place] [address] Phone Care Team Providers Care Pawn Shop Keeper Name Role Phone María Barron MD Primary Care Provider [phone] Encounter Details Date Type Department Care Team (Late st Contact Info) Description 06/13/2024 Procedure Pass [facility] Cat Scan [address] [place] [address] Social History Tobacco Use Types Packs/Day Years [...] Date of Assessment Author No Risk Indicated 06/13/2024 12:24 PM EDT Gerardo Giles, RN * [place] Suicide Severity Rating Scale (Screener/Recent Self-Report) Question Answer Date of Assessment Author 1. Wish to be (Past 1 Month) No 024 12:24 PM EDT Gerardo Giles RN 2. Non-Specific Active Suici del Thoughts (Past 1 Month) No 06/13/2024 12:24 PM EDT Lisa Giles, RN 6. Suicidal Behavior (Lifetime) No 4 12:24 PM EDT Gerardo Giles RN 6. Suicidal Behavior (3 Months) No 4 12:24 PM EDT Gerardo Giles RN documented as of this encounter Plan of Treatment Not on file documented as of this encounter Visit Diagnoses Not on filedocumented in this encounter Care Teams Pawn Shop Keeper Relationship Specialty Start Date End Date María Barron MD [address] [place] [address] PCP - General Family Medicine 04/23/21 documented as of this encounter Additional Source Comments The information contained in this document represents components of the legal health record. It is not the complete legal health record.[facility]
--- OUTSIDE RECORDS SUMMARY | 2025-05-30 10:58 | XMS_ITS | Encounter Summary ---
Author Organization [facility] Address [address] [place] [address] Phone Care Team Providers Care Traffic Manager Name Role Phone María Barron MD Primary Care Provider [phone] Encounter Details Date Type Department Care Team (Late st Contact Info) Description 10/07/2022 Procedure Pass [facility] MRI [address] [place] [address] Social History Tobacco Use Types Packs/Day Years Used Date Smoking Tobacco: Every Day Cigarettes Smokeless Tobacco: Never Alcohol Use Standard Drinks/Week Comments Yes 2 (1 standard drink = 0.6 oz pur e alcohol) Comments Unknown Sex and Gender Information Value Date Recorded Sex Assigned at Female 12/01/2023 8:50 AM EST Legal Sex Female 11:04 AM EDT Gender Identity Female 12/01/2023 8:50 AM EST Sexual Orientation Straight 12/01/2023 8: 50 AM EST documented as of this encounter Functional Status * Calculated C-SSRS Risk Score (Lifetime/Recent) Answer Date of Assessment Author No Risk Indicated 10/07/2022 8:13 AM Orestes Gayle, RN * [place] Suicide Severity Rating Scale (Screener/Recent Self-Report) Question Answer Date of Assessment Author 1. Wish to be (Past 1 Month) No 023 8:13 AM Orestes Gayle, RN 2. Non-Specific Active Suici del Thoughts (Past 1 Month) No 10/07/2022 8:13 AM Orestes Gayle, RN 6. Suicidal Behavior (Lifetime) No 8:13 AM Orestes Gayle, RN documented as of this encounter Plan of Treatment Not on file documented as of this encounter Visit Diagnoses Not on filedocumented in this encounter Care Teams Traffic Manager Relationship Specialty Start Date End Date María Barron MD [address] [place] [address] PCP - General Family Medicine 04/23/21 documented as of this encounter Additional Source Comments The information contained in this document represents components of the legal health record. It is not the complete legal health record.[facility]
--- OUTSIDE RECORDS SUMMARY | 2025-05-30 10:58 | XMS_ITS | Encounter Summary ---
Author Organization [facility] Address [address] [place] [address] Phone Care Team Providers Care Outside Sales Advertising Executive Name Role Phone María Barron MD Primary Care Provider [phone] Encounter Details Date Type Department Care Team (Late st Contact Info) Description 10/07/2022 Procedure Pass [facility] Cat Scan [address] [place] [address] Social History Tobacco Use Types Packs/Day Years [...] 10/07/2022 8:13 AM Orestes Gayle, RN * [place] Suicide Severity Rating Scale (Screener/Recent Self-Report) Question [...] on filedocumented in this encounter Care Teams Outside Sales Advertising Executive Relationship Specialty Start Date End Date María Barron MD [address] [place] [address] PCP - General Family Medicine 04/23/21 documented as of this encounter Additional Source Comments The information contained in this document represents components of the legal health record. It is not the complete legal health record.[facility]
--- OUTSIDE RECORDS SUMMARY | 2025-05-30 10:58 | XMS_ITS | Encounter Summary ---
Author Organization [facility] Address [address] [place] [address] Phone Care Team Providers Care Senior Information Security Consultant Name Role Phone María Barron MD Primary Care Provider [phone] Encounter Details Date Type Department Care Team (Late st Contact Info) Description 10/07/[address] [facility] Cat Scan [address] [place] [address] Social History Tobacco Use Types Packs/Day Years [...] 10/07/2022 8:13 AM Orestes Gayle, RN * [place] Suicide Severity Rating Scale (Screener/Recent Self-Report) Question [...] on filedocumented in this encounter Care Teams Senior Information Security Consultant Relationship Specialty Start Date End Date María Barron MD [address] [place] [address] PCP - General Family Medicine 04/23/21 documented as of this encounter Additional Source Comments The information contained in this document represents components of the legal health record. It is not the complete legal health record.[facility]
--- OUTSIDE RECORDS SUMMARY | 2025-05-30 10:58 | XMS_ITS | Encounter Summary ---
Author Organization [facility] Address [address] [place] [address] Phone Care Team Providers Care Crowning Inspector Name Role Phone María Barron MD Primary Care Provider [phone] Encounter Details Date Type Department Care Team (Late st Contact Info) Description 06/13/2024 Procedure Pass [facility] MRI [address] [place] [address] Social History Tobacco Use Types Packs/Day Years [...] AM EST documented as of this encounter Last Filed Vital Signs Vital Sign Reading Time Taken Comments Blood Pressure - - Pulse - - Temperature - - Respiratory Rate - - Oxygen Saturation - - Inhaled Oxygen Concentration - - Weight 86.2 kg (190 lb 0.6 oz) 06/13/2024 1:42 P M EDT Height 160 cm (5' 3 ) 06/13/2024 1:42 PM EDT Body Mass Index 33.66 06/13/2024 1:42 PM EDT documented in this encounter Functional Status * Calculated C-SSRS Risk Score (Lifetime/Recent) Answer Date of Assessment Author No Risk Indicated 06/13/2024 12:24 PM EDT Gerardo Giles RN * [place] Suicide Severity Rating Scale (Screener/Recent Self-Report) Question Answer Date of Assessment Author 1. Wish to be (Past 1 Month) No 024 12:24 PM EDT Gerardo Giles RN 2. Non-Specific Active Suici del Thoughts (Past 1 Month) No 06/13/2024 12:24 PM EDT Lisa Giles RN 6. Suicidal Behavior (Lifetime) No 4 12:24 PM EDT Gerardo Giles RN 6. Suicidal Behavior (3 Months) No 4 12:24 PM EDT Gerardo Giles RN documented as of this encounter Plan of Treatment Not on file documented as of this encounter Visit Diagnoses Not on filedocumented in this encounter Care Teams Crowning Inspector Relationship Specialty Start Date End Date María Barron MD [address] [place] [address] PCP - General Family Medicine 04/23/21 documented as of this encounter Additional Source Comments The information contained in this document represents components of the legal health record. It is not the complete legal health record.[facility]
--- OUTSIDE RECORDS SUMMARY | 2025-05-30 10:58 | XMS_ITS | Encounter Summary ---
Author Organization [employer] Address [address] [facility] 7t [place] [address] Care Team Providers Care Inker Name Role Phone María Barron MD Primary Care Provider Reason for Visit * Reason Onset Date Comments Call Back Request 05/05/2024 Encounter Details Date Type Department Care Team ([facility] st Contact Info) Description 05/05/2024 Telephone [facility] MEDICINE [address] [place] [address] María Barron MD [address] [place], [place] [phone] Call Back Request Social History Tobacco Use [...] encounter Miscellaneous Notes * Telephone Encounter - Marlen Fuller Leal - 05/05/2024 4:11 PM EDT Tc from pt stating a nurse from Clinic gave a call in regards to Physical appt coming up with PCP, chief underwriter sees no encounter. documented in this encounter Plan of Treatment Upcoming Encounters Date Type Department Care Team (Late st Contact Info) Description 06/19/2025 10:00 AM EDT Telemedicine [facility] MED & PEDS [address] [place] [address] Donna Upton, RN [address] [place] [address] 06/28/2025 8:45 AM EDT Telemedicine [facility] MED & PEDS [address] [place] [address] María Barron MD [address] [place] [address] documented as of this encounter Visit Diagnoses Not on filedocumented in this encounter Care Teams Inker Relationship Specialty Start Date End Date María Barron MD [address] [place] [address] PCP - General Family Medicine 10/04/13 documented as of this encounter
--- OUTSIDE RECORDS SUMMARY | 2025-05-30 10:58 | XMS_ITS | Encounter Summary ---
Author Organization [employer] Address [address] [facility] 7t [place] [address] Care Team Providers Care Section Housekeeper Name Role Phone María Barron MD Primary Care Provider [phone] Reason for Visit * Reason Onset Date Comments Med Refill 04/28/2025 Encounter Details Date Type Department Care Team (Late st Contact Info) Description 04/28/2025 Refill [facility] CHC MED & PEDS [address] [place] [address] María Barron MD [address] [place] [address] Anxiety Social History Tobacco Use Types Packs/Day [...] 06/19/2025 10:00 AM EDT Telemedicine [facility] MED & PEDS [address] [place] [address] Donna Upton RN [address] [place] [address] 06/28/2025 8:45 AM EDT Telemedicine [facility] MED & PEDS [address] [place] [address] María Barron MD [address] [place] [address] documented as of this encounter Visit Diagnoses Diagnosis Anxiety Anxiety state, unspecified documented in this encounter Additional Health Concerns Assessment Noted Time PHQ-9 Depression Total Score: 0 10/20/19 10:22 AM EST documented as of this encounter Care Teams Section Housekeeper Relationship Specialty Start Date End Date María Barron MD [address] [place] [address] PCP - General Family Medicine 10/04/13 documented as of this encounter
--- OUTSIDE RECORDS SUMMARY | 2025-05-30 10:58 | XMS_ITS | Encounter Summary ---
Author Organization [employer] Address [address] [place] [address] 7 [place] [address] Care Team Providers Care Rn Acute Care Name Role Phone María Barron MD Primary Care Provider [phone] Reason for Visit * Reason Comments Med Refill Encounter Details Date Type Department Care Team ([facility] Contact Info) Description 03/04/2023 Refill [facility] MED & PEDS [address] [place] [address] Alcides uK MD [address] [place] [address] Anxiety Social History Tobacco Use Types Packs/Day [...] Type Department Care Team ([facility] Contact Info) Description 06/19/2025 10:00 AM EDT Telemedicine [facility] MED & PEDS [address] [place], [place] [phone] Donna Upton RN [address] [place], [place] [phone] 06/28/2025 8:45 AM EDT Telemedicine [facility] MED & PEDS [address] [place] [address] María Barron MD [address] [place] [address] documented as of this encounter Visit Diagnoses Diagnosis Anxiety Anxiety state, unspecified documented in this encounter Care Teams Rn Acute Care Relationship Specialty Start Date End Date María Barron MD [address] [place] [id number] PCP - General Family Medicine 10/04/13 documented as of this encounter
--- OUTSIDE RECORDS SUMMARY | 2025-05-30 10:58 | XMS_ITS | Encounter Summary ---
Author Organization [employer] Address [address] [facility] 7t [place] [address] Care Team Providers Care Datacap Developer Name Role Phone María Barron MD Primary Care Provider [phone] Reason for Visit * Reason Comments Med Refill Encounter Details Date Type Department Care Team ([facility] Contact Info) Description 02/23/2024 Refill [facility] MEDICINE [address] [place] [address] María Barron MD [address] [place], [place] [phone] Social History Tobacco Use Types Packs/Day Years [...] Description 06/19/2025 10:00 AM EDT Telemedicine [facility] MED & PEDS [address] [place] [address] Donna Upton RN [address] [place] [address] 06/28/2025 8:45 AM EDT Telemedicine [facility] MED & PEDS [address] [place] [address] María Barron MD [address] [place] [address] documented as of this encounter Visit Diagnoses Not on filedocumented in this encounter Care Teams Datacap Developer Relationship Specialty Start Date End Date María Barron MD [address] [place] [address] PCP - General Family Medicine 10/04/13 documented as of this encounter
--- OUTSIDE RECORDS SUMMARY | 2025-05-30 10:58 | XMS_ITS | Encounter Summary ---
Author Organization [facility] Address [address] [place] [address] Phone Care Team Providers Care Scientific Programmer Name Role Phone María Barron MD Primary Care Provider [phone] Encounter Details Date Type Department Care Team (Late st Contact Info) Description 01/10/2025 Procedure Pass [facility] Cat Scan [address] [place] [address] Social History Tobacco Use Types Packs/Day Years Used Date Smoking Tobacco: Every Day Cigarettes Smokeless Tobacco: Never Alcohol Use Standard Drinks/Week Comments Not Currently [...] Date of Assessment Author No Risk Indicated 01/10/2025 7:38 AM EDT Joan Singh * [place] Suicide Severity Rating Scale (Screener/Recent Self-Report) Question Answer Date of Assessment Author 1. Wish to be (Past 1 Month) No 025 7:38 AM EDT Joan Singh 2. Non-Specific Active Suici del Thoughts (Past 1 Month) No 01/10/2025 7:38 AM EDT Jan Singh 6. Suicidal Behavior (Lifetime) No 7:38 AM EDT Joan Singh documented as of this encounter Plan of Treatment Not on file documented as of this encounter Visit Diagnoses Not on filedocumented in this encounter Care Teams Scientific Programmer Relationship Specialty Start Date End Date María Barron MD [address] [place] [id number] PCP - General Family Medicine 04/23/21 documented as of this encounter Additional Source Comments The information contained in this document represents components of the legal health record. It is not the complete legal health record.[facility]
--- OUTSIDE RECORDS SUMMARY | 2025-05-30 10:58 | XMS_ITS | Encounter Summary ---
Author Organization [employer] Address [address] [facility] 7t [place] [address] Care Team Providers Care Semiconductor Bonder Name Role Phone María Barron MD Primary Care Provider [phone] Reason for Visit * Reason Onset Date Comments returning call 11/13/2022 Encounter Details Date Type Department Care Team ([facility] Contact Info) Description 11/13/2022 Telephone [facility] CHC MED & PEDS [address] [place] [address] María Barron MD [address] [place] [address] returning call Social History Tobacco Use Types Packs/Day Years Used Date Smoking Tobacco: Every Day Cigarettes Started: 06/2012 Comments Unknown Sex and Gender Information Value Date Recorded Sex Assigned at Female 07/28/2022 10:22 AM EDT Legal Sex Female 10:22 AM EDT Gender Identity Female 07/28/2022 10:22 AM EDT Sexual Orientation Straight 07/28/2022 10 :22 AM EDT COVID-19 Exposure Response Date Recorded In the last 10 days, have yo u been in contact with someone who was confirmed or suspected to have Coronavirus/COVID-19? No / Unsure 10/15/2022 9:42 AM EST documented as of this encounter Miscellaneous Notes * Telephone Encounter - Vianney Lyons RN - 11/13/2022 3:31 PM EST Call returned to pt. States she was seen at [facility] in [place] on 11/11/22.Per pt, completed a brain MRI. States that she did not understand the results so she called [facility] to have PCP interpret. Per pt, was called by staff from the hospital after call placed to [facility] and was informed of the results. States she was informed the MRI was normal. Pt asks is that what it says? RN advised unable to interpret. Offered next available ED f/u with PCP to discuss. Pt declines visiton 12/03/22. Agrees to visit on 12/08/22 @11:15am. Notes in system. Will forward to PCP. * Telephone Encounter - Khushbu Cope - 11/13/2022 9:28 AM EST Tc from pt returning call . documented in this encounter Plan of Treatment Upcoming Encounters Date Type Department Care Team (Late st Contact Info) Description 06/19/2025 10:00 AM EDT Telemedicine [facility] MED & PEDS [address] [place] [address] Donna Upton RN [address] [place] [address] 06/28/2025 8:45 AM EDT Telemedicine [facility] MED & PEDS [address] [place] [address] María Barron MD [address] [place] [address] documented as of this encounter Visit Diagnoses Not on filedocumented in this encounter Care Teams Semiconductor Bonder Relationship Specialty Start Date End Date María Barron MD [address] [place] [address] PCP - General Family Medicine 10/04/13 documented as of this encounter
--- OUTSIDE RECORDS SUMMARY | 2025-05-30 10:58 | XMS_ITS | Encounter Summary ---
Author Organization [employer] Address [address] [facility] 7t [place] [address] Care Team Providers Care Staffing And Scheduling Coordinator Name Role Phone María Barron MD Primary Care Provider [phone] Encounter Details Date Type Department Care Team (Latest Contact Info) Description 05/30/2025 Travel Social History Tobacco Use Types Packs/Day Years Used Date Smoking Tobacco: Former Cigarettes 0.5 14.4 1 - 10/29/2024 Smokeless Tobacco: Never Alcohol Use Standard Drinks/Week [...] Info) Description 06/19/2025 10:00 AM EDT Telemedicine [facility] ED MED & PEDS [address] [place] [address] Donna Upton RN [address] [place] [address] 06/28/2025 8:45 AM EDT Telemedicine [facility] ED MED & PEDS [address] [place] [address] María Barron MD [address] [place] [address] documented as of this encounter Visit Diagnoses Not on filedocumented in this encounter Additional Health Concerns Assessment Noted Time PHQ-9 Depression Total Score: 0 10/20/19 25 10:22 AM EST documented as of this encounter Care Teams Staffing And Scheduling Coordinator Relationship Specialty Start Date End Date María Barron MD [address] [place] [address] PCP - General Family Medicine 10/04/13 documented as of this encounter
--- OUTSIDE RECORDS SUMMARY | 2025-05-30 10:58 | XMS_ITS | Encounter Summary ---
Author Organization [facility] Address [address] [place] [address] Phone Care Team Providers Care Hydraulic Governor Assembler Name Role Phone María Barron MD Primary Care Provider [phone] Encounter Details Date Type Department Care Team (Late st Contact Info) Description 01/10/2025 Procedure Pass [facility] Cat Scan [address] [place] [address] Social History Tobacco Use Types Packs/Day Years [...] 01/10/2025 7:38 AM EDT Joan Singh * [place] Suicide Severity Rating Scale (Screener/Recent Self-Report) Question [...] on filedocumented in this encounter Care Teams Hydraulic Governor Assembler Relationship Specialty Start Date End Date María Barron MD [address] [place] [address] PCP - General Family Medicine 04/23/21 documented as of this encounter Additional Source Comments The information contained in this document represents components of the legal health record. It is not the complete legal health record.[facility]
--- OUTSIDE RECORDS SUMMARY | 2025-05-30 10:58 | XMS_ITS | Encounter Summary ---
Author Organization [employer] Address [address] [facility] 7t [place] [address] Care Team Providers Care Cardiothoracic Surgeon Name Role Phone María Barron MD Primary Care Provider [phone] Reason for Visit * Reason Onset Date Comments Med Refill 10/11/2024 Encounter Details Date Type Department Care Team ([facility] st Contact Info) Description 10/11/2024 Refill [facility] CHC MED & PEDS [address] [place], [place] [phone] María Barron MD [address] [place], [place] [phone] Anxiety Social History Tobacco Use Types Packs/Day [...] encounter Miscellaneous Notes * Telephone Encounter - María Barron MD - 10/11/2024 2:13 PM EST I sent it already documented in this encounter Plan of Treatment Upcoming Encounters Date Type Department Care Team (Late st Contact Info) Description 06/19/2025 10:00 AM EDT Telemedicine [facility] MED & PEDS [address] [place] [address] Donna Upton RN [address] [place] [address] 06/28/2025 8:45 AM EDT Telemedicine [facility] MED & PEDS [address] [place] [address] María Barron MD [address] [place] [address] documented as of this encounter Visit Diagnoses Diagnosis Anxiety Anxiety state, unspecified documented in this encounter Care Teams Cardiothoracic Surgeon Relationship Specialty Start Date End Date María Barron MD [address] [place] [address] PCP - General Family Medicine 10/04/13 documented as of this encounter
--- OUTSIDE RECORDS SUMMARY | 2025-05-30 10:58 | XMS_ITS | Encounter Summary ---
Author Organization [facility] Address [address] [place] [address] Phone Care Team Providers Care Industrial Technology Teacher Name Role Phone María Barron MD Primary Care Provider [phone] Encounter Details Date Type Department Care Team (Late st Contact Info) Description 06/13/2024 Procedure Pass [facility] Cat Scan [address] [place] [address] Social History Tobacco Use Types Packs/Day Years [...] 12:24 PM EDT Gerardo Giles, RN * [place] Suicide Severity Rating Scale (Screener/Recent Self-Report) Question [...] on filedocumented in this encounter Care Teams Industrial Technology Teacher Relationship Specialty Start Date End Date María Barron MD [address] [place] [address] PCP - General Family Medicine 04/23/21 documented as of this encounter Additional Source Comments The information contained in this document represents components of the legal health record. It is not the complete legal health record.[facility]
--- OUTSIDE RECORDS SUMMARY | 2025-05-30 10:58 | XMS_ITS | Clinical Summary ---
Author Organization [employer] Address [address] [facility] 7t [place] [address] Care Team Providers Care Chocolate Dipper Name Role Phone María Barron MD Primary Care Provider [phone] Allergies Active Allergy Reactions Criticality Noted Date Comments Codeine Hives 04/23/2021 Ibuprofen 12/18/2022 Other reaction(s): swelling Nsaids 02/07/2013 Medications omeprazole OTC (PriLOSEC OTC) 20 MG EC tablet Take 1 tablet (20 mg) by mouth before breakfast. Do not crush, chew, or split. 90 tablet 3 12/19/19 23 Active cetirizine (ZyrTEC) 10 MG tablet TAKE 1 TABLET BY MOUTH EVERY DAY 30 tablet 3 02/11/20 23 Active dimenhyDRINATE (Dramamine) 50 MG tabletIndicati ons:Dizziness Take 1 tablet (50 mg) by mouth if needed at bedtime for dizziness. 90 tablet 05/12/20 24 Active scopolamine (Transderm-Sco p) 1 MG/3DAYS patch 72 hourIndication s:Dizziness Place 1 patch on the skin every 3rd (third) day. 10 patch 05/12/20 24 Active atorvastatin (Lipitor) 40 MG tablet Take 1 tablet (40 mg) by mouth Once per day. 90 tablet 07/14/20 24 Active dilTIAZem (Cardizem) 60 MG immediate release tablet TAKE 1 TABLET BY MOUTH EVERY 12 HOURS 180 tablet 3 08/17/20 24 Active meclizine (Antivert) 25 MG tablet Take 1 tablet (25 mg) by mouth if needed in the morning, at noon, and at bedtime for dizziness. 1 tab po TID 90 tablet 3 12/08/19 25 Active fluticasone (Flonase) 50 MCG/ACT nasal sprayIndicatio ns:Allergic rhinitis due to other allergic trigger, unspecified seasonality Administer 1 spray into each nostril 2 times daily. 16 g 3 01/19/20 25 Active hydroCHLOROthi azide (HYDRODiuril) 25 MG tablet Take 1 tablet (25 mg) by mouth Once per day. 90 tablet 1 03/02/20 25 Active Neomycin-Polym yxin-HC 1 % solution Administer 3 drops into affected ear(s) 4 times daily. 10 mL 03/08/20 25 Active albuterol 108 (90 Base) MCG/ACT inhaler INHALE 2 PUFFS BY MOUTH EVERY 4 HOURS IF NEEDED FOR WHEEZING OR SHORTNESS OF BREATH 18 g 11 04/28/20 25 Active hydrALAZINE (Apresoline) 10 MG tabletIndicati ons:Hypertensi on, unspecified type TAKE 1 TABLET BY MOUTH TWICE DAILY WITH FOOD 180 tablet 04/28/20 25 Active cyclobenzaprin e (Flexeril) 10 MG tabletIndicati ons:Spasm of thoracic back muscle Take 1 tablet (10 mg) by mouth at bedtime for 10 days. 10 tablet 05/30/20 25 025 Active ALPRAZolam (Xanax) 0.5 MG tabletIndicati ons:Anxiety TAKE 1 TABLET BY MOUTH BID 60 tablet 05/30/20 25 Active loratadine (Claritin) 10 MG tablet Take 1 tablet (10 mg) by mouth in the morning. 30 tablet 3 12/19/19 23 025 Discontinued cyclobenzaprin e (Flexeril) 10 MG tabletIndicati ons:Spasm of thoracic back muscle Take 1 tablet (10 mg) by mouth 3 times daily for 10 days. 30 tablet 09/22/20 23 025 Discontinued(Re order (will not trigger notification to Pharmacy)) hydrOXYzine pamoate (Vistaril) 25 MG capsule Take 1 capsule (25 mg) by mouth every 12 (twelve) hours if needed for anxiety. 30 capsule 3 08/12/20 24 025 Discontinued(Re order (will not trigger notification to Pharmacy)) FLUoxetine (PROzac) 10 MG capsule Take 1 capsule (10 mg) by mouth Once per day. 30 capsule 11 10/11/19 25 025 Discontinued ALPRAZolam (Xanax) 0.5 MG tabletIndicati ons:Anxiety TAKE 1 TABLET BY MOUTH EVERY NIGHT AT BEDTIME FOR ANXIETY START ON MAY 06 30 tablet 05/01/20 25 025 Discontinued(Re order (will not trigger notification to Pharmacy)) ALPRAZolam (Xanax) 0.5 MG tabletIndicati ons:Anxiety TAKE 1 TABLET BY MOUTH EVERY NIGHT AT BEDTIME FOR ANXIETY START ON MAY 06 30 tablet 04/28/20 25 025 Discontinued(Du plicate order (will not trigger notification to Pharmacy)) hydrOXYzine pamoate (Vistaril) 25 MG capsule Take 1 capsule (25 mg) by mouth every 12 (twelve) hours if needed for anxiety. 30 capsule 3 05/05/20 25 025 Discontinued ALPRAZolam (Xanax) 0.5 MG tabletIndicati ons:Anxiety TAKE 1 TABLET BY MOUTH EVERY NIGHT AT BEDTIME FOR ANXIETY START ON MAY 06 Do not start before May 30, 2025. 30 tablet 05/30/20 25 025 Discontinued(Re order (will not trigger notification to Pharmacy)) Active Problems Problem Noted Date Diagnosed Date Acute otitis externa of right ear 03/08/2025 Long-term current use of benzodiazepine 02/10/20 Neoplasm of uncertain behavior of nasopharynx HTN (hypertension) 05/12/2024 Severe obesity (BMI 35.0-39.9) with comorbidity 05/12/2024 Vertigo 05/12/2024 Assessment & Plan (05/12/2024 7:46 PM EDT): Pt was referred to speak with her provider as she has a history of chronic dizziness/vertigo. Relevant orders: DIMENHYDRINATE (Dramamine) 50 MG tablet Scopolamine (Transderm-Scop) 1 MG/3DAYS patch 72 hour Mr Brain w/ and w/o Contrast Uterine leiomyoma 12/01/2023 Allergic rhinitis 09/05/2015 Overview (08/30/2024): Perennial allergic rhinitis; Note: Date Diagnosed: 09/05/2015 9:05 PM (J30.89) Bilateral tinnitus 09/05/2015 Overview (08/30/2024): Tinnitus, bilateral; Note: Date Diagnosed: 09/05/2015 9:05 PM (H93.13) Deviated nasal septum 09/05/2015 Overview (08/30/2024): Deviated nasal septum; Note: Date Diagnosed: 09/05/2015 9:05 PM (J34.2) Nasal congestion 09/05/2015 Overview (08/30/2024): Nasal congestion; Note: Date Diagnosed: 09/05/2015 9:05 PM (R09.81) Refractory migraine 09/05/2015 Overview (08/30/2024): Other migraine, intractable, without status migrainosus; Note: Date Diagnosed: 09/05/2015 9:05 PM (G43.819) Palpitations 02/10/2014 Gastroesophageal reflux disease 04/26/2013 Smoker 04/26/2013 Anxiety 03/17/2013 Resolved Problems Problem Noted Date Diagnosed Date Resolved Date Long-term current use of opiate analgesic 02/09/2025 02/09/2025 Encounters Date Type Department Care Team Description 05/30/2025 9:00 AM EDT Office Visit [facility] [address] [place] [address] María Barron MD Primary hypertension (Primary Dx); Anxiety; Vertigo; Spasm of thoracic back muscle; Screening for colon cancer 05/30/2025 Travel 05/26/2025 Telephone [facility] [address] [place] [address] María Barron MD chart prep 05/24/2025 Refill [facility] [address] [place] [address] Alcides uK MD Anxiety 05/23/2025 Travel 05/22/2025 Patient Outreach [facility] [address] [place], [place] [phone] María Barron MD Pre-visit Planning (SDOH screening negative and Tobacco screening negative) 05/05/2025 Refill [facility] [address] [facility] [address] María Barron MD 05/02/2025 Telephone [facility] [address] [place] [address] María Barron MD Nurse Triage 04/28/2025 Refill [facility] [address] [facility] [address] María Barron MD Anxiety 04/27/2025 Refill [facility] [address] [place] [address] María Barron MD Hypertension, unspecified type 04/27/2025 Refill [facility] [address] [facility] [address] María Barron MD Hypertension, unspecified type; Anxiety 04/26/2025 Refill [facility] [address] [place] [address] María Barron MD Anxiety 04/17/2025 2:00 PM EDT Telemedicine [facility] [address] [place] [address] Donna Upton, KAJAL Anxiety 04/17/2025 Travel 04/16/2025 Travel 03/27/2025 Refill [facility] [address] [place] [address] María Barron MD Anxiety 03/09/2025 Telephone [facility] [address] [place] [address] María Barron MD pre op 03/08/2025 11:00 AM EDT Office Visit [facility] [address] [place] [address] Carmelina Friedman MD Acute otitis externa of right ear, unspecified type (Primary Dx); Dislocation of temporomandibular joint, initial encounter 03/08/2025 Travel 03/08/2025 Telephone [facility] [address] [place] [address] María Barron MD Nurse Triage 03/01/2025 Refill [facility] [address] [place] [address] María Barron MD Anxiety from Last 3 Months Immunizations Immunization Administration Dates Next Due Pfizer Covid-19 Vaccine 12+ 05/23/2021, Pfizer Covid-19 Vaccine 12+ lisseth-sucrose (Vazquez Colt ap) 05/23/2021,04/29/2021 Tdap 01/01/2022 Family History Medical History Relation Name Comments Asthma Mother Ngozi Rodas Cancer Mother Ngozi Rodas Hypertension Mother Ngozi Rodas Relation Name Status Comments Mother Ngozi Rodas Social History Tobacco Use Types Packs/Day Years [...] Orientation Straight 07/28/2022 10 :22 AM EDT Last Filed Vital Signs Vital Sign Reading [...] Mass Index 35.78 05/30/2025 9:15 AM EDT Plan of Treatment Upcoming Encounters Date Type Department Care Team (Late st Contact Info) Description 06/19/2025 10:00 AM EDT Telemedicine [facility] [address] [place] [address] Donna Upton RN [address] [place] [address] 06/28/2025 8:45 AM EDT Telemedicine [facility] [address] [place] [address] María Barron MD [address] [place] [address] Health Maintenance Due Date Last Done Comments CT Colonography 1975 Colonoscopy 1975 Colorectal Cancer Screening 1975 FIT DNA/Cologuard 1975 FIT 1975 FOBT 1975 HIV Screening 1975 Sigmoidoscopy 1975 Family Planning (PISQ) 1991 Hepatitis C Screening 1994 Hepatitis B Vaccines (1 of 3 - 19+ 3-dose series) 1995 Mammogram 05/29/2023 05/29/2021 COVID-19 Vaccine ( season) 2025 05/23/2021, 05/23/2021, 04/29/2021, Additional history exists Influenza Vaccine (#1) 2025 Diabetes: Hemoglobin A1C 06/13/2025 06/13/2024 Depression Screening 10/20/2025 10/20/2024, 10/20/19 Disability Screening 11/21/2025 11/21/2024 Zoster Vaccines (1 of 2) 2026 SDOH Screening 05/22/2026 05/22/2025 Alcohol/Substance Use Screening 05/30/2026 05/30/2025 Tobacco Screening 05/30/2026 05/30/2025 Pap Smear 08/18/2026 08/18/2023 Lipid Panel 01/02/2027 01/02/2022, 01/30/2021 Cervical Cancer Screening 08/18/2028 HPV/Cotest 08/18/2028 08/18/2023, 10/20/2017 DTaP/Tdap/Td Vaccines (2 - Td or Tdap) 01/02/2032 01/01/2022 RSV Patients and Patients Aged 60 years or older (1 - 1-dose 75+ series) 2051 HIB Vaccines Aged Out No longer eligi ble based on patient's age to complete this topic HPV Vaccines Aged Out No longer eligi ble based on patient's age to complete this topic Hepatitis A Vaccines Aged Out No long er eligible based on patient's age to complete this topic IPV Vaccines Aged Out No longer eligi ble based on patient's age to complete this topic Meningococcal B Vaccine Aged Out No l onger eligible based on patient's age to complete this topic Meningococcal Vaccine Aged Out No aissatou chayo eligible based on patient's age to complete this topic Pneumococcal Vaccine: Pediatrics (0 to 5 Years) and At-Risk Patients (6 to 49) Years Aged Out No longer eligible based on patient's age to complete this topic RSV under 20 months Aged Out No longe r eligible based on patient's age to complete this topic Rotavirus Vaccines Aged Out No longer eligible based on patient's age to complete this topic Procedures Procedure Name Priority Date/Time Associated Diagnosis Comments POCT GLUCOSE Routine 05/30/2025 9:22 AM EDT Vertigo HPV MRNA E6/E7 REFLEX TO HPV 16, 18/45 Routine 08/18/2023 1:05 PM EST PAP SMEAR Routine 08/18/2023 1:05 PM EST LIPID PANEL, STANDARD Routine 01/02/2022 8:55 AM EDT HM MAMMOGRAPHY Routine 05/29/2021 from Last 3 Months or Most Recently Relevant to Health Maintenance Results * POCT Glucose (05/30/2025 9:22 AM EDT) Glucose Blood, POC 108 60 - 200 mg/dL QC Media Lot # [id number] Lot# Expiration Date Blood Capillary blood specimen / Unknown 05/30/2025 9:22 AM EDT María Barron MD POINT OF CARE TEST ENTER/EDIT OR DERABLES Final Result * HPV mRNA E6/E7 w/Reflex to HPV Genotypes 16, 18/45 (08/18/2023 1:05 PM EST) Pathologist [facility] HPV nRNA E6/E7 Not Detected Not Detected [facility] Comment:Methodology: Transcr iption-Mediated AmplificationThis assay detects E6/E7 viral messenger RNA (mRNA) from 14high-risk HPV types (16,18,31,33,35,39,45,51,52,56,58,59,66,68).Cervical sources are required for HPV testing.If a vaginal source from a patient who has had atotal hysterectomy with removal of cervix wassubmitted, please contact the testing laboratoryfor alternative testing options.For additional information, please refer tohttp://education.[employer]/faq/EFV324g5(This link if provided for information/educational purposes only.)THIS TEST WAS PERFORMED AT:[employer] [place] [phone] ANGULO MD HPV mRNA E6/E7 TNP [facility] HPV 16 RNA TNP [facility] HPV 18/45 RNA TNP [facility] 08/18/2023 1:05 PM EST 08/19/2023 8:30 AM EST us Irina Dial CNM LAB CYTOLOGY ORDERABLES F inal Result [facility] [address] [place] [phone] * Pap Smear (08/18/2023 1:05 PM EST) 08/18/2023 1:05 PM EST 08/19/2023 8:30 AM EST Narrative [facility] - 09/01/2023 7:58 AM EST ----- ------- Name: Vlad Rodas Age/Sex: 48/F : 1975 Unit#: [id number] Attend Dr: IRINA DIAL CNM Re08/18/23 Status: DEP REF Location: HO.CHCLNP Disch: ----- ------- SPEC : [id number] RECD: 08/19/23 STATUS: ALFRED MAS NUM: [id number] NEREIDA: 08/18/23-1305 [facility] [address]: IRINA DIAL CNM ENTERED: 08/19/23 SP TYPE: Pap Smr OTHR DR: ORDERED: Pap Smear Interpretation Satisfactory for evaluation. Cytolysis noted. No endocervical cells seen. Negative for intraepithelial lesion or malignancy. HPV mRNA E6/E7: NOT DETECTED This assay detects E6/E7 viral messenger RNA (mRNA) from 14 high-risk HPV types (16, 18, 31, 33, 35, 39, 45, 51, 52, 56, 58, 59, 66, 68) HPV testing performed by [employer], [place], [place]. See reference laboratory portion of the EMR for entire report. Clinical Information LMP: Unknown date Previous PAP test: 2017, WNL Material Received ThinPrep-Cervical ----- ------- Signed (signature on file) JEIMY Puga (ASCP) 09/01/23 0758 ----- ------- END OF REPORT Irina Dial CNM LAB CYTOLOGY ORDERABLES F inal Result [facility] [address] [place] [phone] * (ABNORMAL) LIPID PANEL, STANDARD (01/02/2022 8:55 AM EDT) Chol/HDLC Ratio 2.9 <5.0 (calc) [facility] Cholesterol, Total 227(H) <200 mg/dL [facility] HDL Cholesterol 78 > OR = 50 mg/dL [facility] LDL Cholesterol 119(H) mg/dL (calc) [facility] Comment: Reference range: <100 Desirable range <100 mg/dL for primary prevention; <70 mg/dL for patients with CHD or diabetic patients with > or = 2 CHD risk factors. LDL-C is now calculated using the Sherrill calculation, which is a validated novel method providing better accuracy than the Friedewald equation in the estimation of LDL-C. Eugene SS et al. STEPHY. 2013;310(19): 3774-5961 (http://education.[employer].Wyldfire/faq/PBK313) Non-HDL Cholesterol 149(H) <130 mg/dL (calc) [facility] Comment: For patients with diabetes plus 1 major ASCVD risk factor, treating to a non-HDL-C goal of <100 mg/dL (LDL-C of <70 mg/dL) is considered a therapeutic option. Triglycerides 187(H) <150 mg/dL [facility] 01/02/2022 8:55 AM EDT María Barron MD LAB BLOOD ORDERABLES Final Resul t [facility] [address] * Mammography (05/29/2021) Pathologist [facility] Mammogram performed Anatomical Region Laterality Modality Other Alisha Provider HEALTH MAINTENANCE Final Result from Last 3 Months or Most Recently Relevant to Health Maintenance Insurance [employer] Care Teams Chocolate Dipper Relationship Specialty Start Date End Date María Barron MD [address] [place] [phone] PCP - General Family Medicine 10/04/13
--- OUTSIDE RECORDS SUMMARY | 2025-05-30 10:58 | XMS_ITS | Encounter Summary ---
Author Organization [employer] Address [address] [facility] 7 [place] [address] Care Team Providers Care Phlebotomy Services Technician Name Role Phone María Barron MD Primary Care Provider [phone] Reason for Visit * Reason Onset Date Comments Med Refill 05/24/2025 Encounter Details Date Type Department Care Team ([facility] Contact Info) Description 05/24/2025 Refill [facility] MED & PEDS [address] [place] [address] Alcides Ku MD [address] [place] [address] Anxiety Social History Tobacco Use Types Packs/Day [...] housing situation today? I have jaycoborlin ryan 05/22/[address] you [...] [facility] [address] [place] [address] Donna Upton, KAJAL [address] [place] [address] 06/28/2025 8:45 AM EDT Telemedicine [facility] [address] [place] [address] María Barron MD [address] [place] [address] documented as of this encounter Visit Diagnoses Diagnosis Anxiety Anxiety state, unspecified documented in this encounter Additional Health Concerns Assessment Noted Time PHQ-9 Depression Total Score: 0 10/20/19 10:22 AM EST documented as of this encounter Care Teams Phlebotomy Services Technician Relationship Specialty Start Date End Date María Barron MD [address] [place] [phone] PCP - General Family Medicine 10/04/13 documented as of this encounter
--- OUTSIDE RECORDS SUMMARY | 2025-05-30 10:58 | XMS_ITS | Encounter Summary ---
Author Organization [employer] Address [address] [facility] [address] [place] [address] Care Team Providers Care Sheet Turner Name Role Phone María Barron MD Primary Care Provider [phone] Encounter Details Date Type Department Care Team ([facility] Contact Info) Description 05/17/2024 Telephone [facility] MED & PEDS [address] [place] [address] María Barron MD [address] [place] [address] Social History Tobacco Use Types Packs/Day Years [...] encounter Miscellaneous Notes * Telephone Encounter - Khushbu Cope - 05/17/2024 8:56 AM EDT Tc from pt checking states on MRI order . Pt was informed it was sent to [facility] but pt states want to go to [facility] instead. documented in this encounter Plan of Treatment Upcoming Encounters Date Type Department Care Team (Late st Contact Info) Description 06/19/2025 10:00 AM EDT Telemedicine [facility] MED & PEDS [address] [place] [address] Donna Upton RN [address] [place] [address] 06/28/2025 8:45 AM EDT Telemedicine [facility] MED [facility] PEDS [address] [place] [address] María Barron MD [address] [place] [address] documented as of this encounter Visit Diagnoses Not on filedocumented in this encounter Care Teams Sheet Turner Relationship Specialty Start Date End Date María Barron MD [address] [place] [phone] PCP - General Family Medicine 10/04/13 documented as of this encounter
--- OUTSIDE RECORDS SUMMARY | 2025-05-30 10:58 | XMS_ITS | Encounter Summary ---
Author Organization [employer] Address [address] [facility] 7t [place] [address] Care Team Providers Care Eligibility Clerk Name Role Phone María Barron MD Primary Care Provider [phone] Reason for Visit * Reason Onset Date Comments chart prep 05/26/2025 Encounter Details Date Type Department Care Team ([facility] Contact Info) Description 05/26/[address] [facility] MED & PEDS [address] [place] [address] María Barron MD [address] [place] [address] chart prep Social History Tobacco Use Types Packs/Day Years [...] encounter Miscellaneous Notes * Telephone Encounter - Karen Garcia MA - 05/26/2025 9:27 AM EDT Chart Prep Labs: done Images: done Referrals: appointment pending Vaccines due: Covid, PCV20, and Hep B Screenings: mammogram Overdue care gaps: SBIRT documented in this encounter Plan of Treatment Upcoming Encounters Date Type Department Care Team ([facility] st Contact Info) Description 06/19/2025 10:00 AM EDT Telemedicine [facility] MED & PEDS [address] [place] [address] Donna Upton RN [address] [place] [address] 06/28/2025 8:45 AM EDT Telemedicine [facility] MED & PED[facility] [address] [place] [address] María Barron MD [address] [place] [address] documented as of this encounter Visit Diagnoses Not on filedocumented in this encounter Additional Health Concerns Assessment Noted Time PHQ-9 Depression Total Score: 0 10/20/19 25 10:22 AM EST documented as of this encounter Care Teams Eligibility Clerk Relationship Specialty Start Date End Date María Barron MD [address] [place] [phone] PCP - General Family Medicine 10/04/13 documented as of this encounter
--- OUTSIDE RECORDS SUMMARY | 2025-05-30 10:58 | XMS_ITS | Encounter Summary ---
Author Organization [employer] Address [address] [facility] 7t [place] [address] Care Team Providers Care Treatment Manager Name Role Phone María Barron MD Primary Care Provider [phone] Reason for Visit * Reason Onset Date Comments Med Refill 08/27/2023 Encounter Details Date Type Department Care Team ([facility] Contact Info) Description 08/27/2023 Refill [facility] MED & PEDS [address] [place], [place] [phone] María Barron MD [address] [place] [address] Anxiety Social History Tobacco Use Types Packs/Day [...] Info) Description 06/19/2025 10:00 AM EDT Telemedicine [facility] MED & PEDS [address] [place] [address] Donna Upton RN [address] [place] [address] 06/28/2025 8:45 AM EDT Telemedicine [facility] [address] [place] [address] María Barron MD [address] [place] [address] documented as of this encounter Visit Diagnoses Diagnosis Anxiety Anxiety state, unspecified documented in this encounter Care Teams Treatment Manager Relationship Specialty Start Date End Date María Barron MD [address] [place] [address] PCP - General Family Medicine 10/04/13 documented as of this encounter
--- OUTSIDE RECORDS SUMMARY | 2025-05-30 10:58 | XMS_ITS | Encounter Summary ---
Author Organization [employer] Address [address] [place] [address] 7t [place] [address] Care Team Providers Care Supervisor Shuttle Veneering Name Role Phone María Barron MD Primary Care Provider [phone] Reason for Visit * Reason Onset Date Comments Med Refill 04/02/2023 Encounter Details Date Type Department Care Team ([facility] Contact Info) Description 04/02/2023 Refill [facility] MED & PEDS [address] [place] [address] María Barron MD [address] [place] [address] Anxiety Social History Tobacco Use Types Packs/Day [...] suspected to have Coronavirus/COVID-19? No / Unsure 03/10/2023 8:56 AM EDT documented as of this encounter Plan of Treatment Upcoming Encounters Date Type Department Care Team ([facility] Contact Info) Description 06/19/2025 10:00 AM EDT Telemedicine [facility] [address] [place] [address] Donna Upton, RN [address] [place] [address] 06/28/2025 8:45 AM EDT Telemedicine [facility] MED & PEDS [address] [place] [address] María Barron MD [address] [place] [address] documented as of this encounter Visit Diagnoses Diagnosis Anxiety Anxiety state, unspecified documented in this encounter Care Teams Supervisor Shuttle Veneering Relationship Specialty Start Date End Date María Barron MD [address] [place] [address] PCP - General Family Medicine 10/04/13 documented as of this encounter
--- OUTSIDE RECORDS SUMMARY | 2025-05-30 10:58 | XMS_ITS | Encounter Summary ---
Author Organization [employer] Address 75 [facility] 7t [place] [address] Care Team Providers Care Business Analytics Specialist Name Role Phone María Barron MD Primary Care Provider [phone] Reason for Visit * Reason Comments Med Refill Encounter Details Date Type Department Care Team ([facility] Contact Info) Description 02/03/[address] [facility] CHC MED & PEDS 505 [place] [address] María Barron MD 505 [place] [address] Anxiety Social History Tobacco Use Types Packs/Day [...] suspected to have Coronavirus/COVID-19? No / Unsure 01/18/2023 3:15 PM EDT documented as of this encounter Plan of Treatment Upcoming Encounters Date Type Department Care Team ([facility] Contact Info) Description 06/19/2025 10:00 AM EDT Telemedicine [facility] CHC MED & PEDS [address] [place] [address] Donna Upton, KAJAL 505 [place] [address] 06/28/2025 8:45 AM EDT Telemedicine [facility] CHC MED & PEDS [address] [place] [address] María Barron MD 505 [place] [address] documented as of this encounter Visit Diagnoses Diagnosis Anxiety Anxiety state, unspecified documented in this encounter Care Teams Business Analytics Specialist Relationship Specialty Start Date End Date María Barron MD [address] [place] [address] PCP - General Family Medicine 10/04/13 documented as of this encounter
[2025-05-30 14:53] LABS: Alanine Aminotransferase 14 U/L (0-31); Albumin Level 4.2 g/dL (3.5-5.0); Alkaline Phosphatase 77 U/L (39-117); Anion Gap 11 (12-20); Aspartate Amino Transferase 13 U/L (5-31); Blood Urea Nitrogen 13 mg/dL (9-16); Calcium 9.2 mg/dL (8.4-10.2); Carbon Dioxide 27 mmol/L (22-29); Chloride 104 mmol/L (96-108); Cholesterol 248 mg/dL (<200); Estimated Glomerular Filt Rate > 60; HDL Cholesterol 65 mg/dL (>40); Potassium 3.8 mmol/L (3.3-5.1); Sodium 138 mmol/L (135-145); Total Protein 6.8 g/dL (6.5-8.0); Triglycerides 187 mg/dL (<150)
== END 2025-05-30 09:48 | disposition home or self-care (01) ==
LOC: HO.CHCLDS 09:47
PROVIDERS: Visit Provider Student in an Organized Health Care Education/Training Program
DX: I10 Essential (primary) hypertension (principal)
CPT/HCPCS: 36415; 80048; 80061; 80076

== ENCOUNTER 2025-08-22 09:26 | Outpatient (REF) | payer MEDICAID, SELFPAY ==
--- OUTSIDE RECORDS SUMMARY | 2025-08-22 10:46 | XMS_ITS | Encounter Summary ---
Author Organization [employer] Address 75 [facility] 7t [place] [address] Care Team Providers Care Rehab Nursing Tech Name Role Phone María Barron MD Primary Care Provider [phone] Rosmery Murray CNP Primary Care Provider [phone] Encounter Details Date Type Department Care Team (Late st Contact Info) Description 05/17/2024 Telephone [facility] CHC MED & PEDS [address] [place], [place] [phone] María Barron MD 505 [place], [place] [phone] Social History Tobacco Use Types Packs/Day Years [...] Pt was informed [facility] [place] [facility] but pt states want to go to [facility]. documented in this encounter Plan of Treatment Upcoming Encounters Date Type Department Care Team (Late st Contact Info) Description 08/23/2025 10:30 AM EST Office Visit [facility] MED & PEDS 505 [place] [address] Rosmery Murray CNP [address] [place] [address] 08/31/2025 9:00 AM EST Clinical Support [facility] MED & PEDS 505 [place] [address] Donna Upton, KAJAL 505 [place] [address] documented as of this encounter Visit Diagnoses Not on filedocumented in this encounter Care Teams Rehab Nursing Tech Relationship Specialty Start Date End Date María Barron MD [address] [place] [address] PCP - General Family Medicine 10/04/13 06/27/25 Rosmery Murray CNP [address] [place] [address] PCP - General Family Medicine 06/28/25 documented as of this encounter
--- OUTSIDE RECORDS SUMMARY | 2025-08-22 10:46 | XMS_ITS | Encounter Summary ---
Author Organization [employer] Address 75 [facility] 7t [place] [address] Care Team Providers Care Aerial Lineman Name Role Phone María Barron MD Primary Care Provider [phone] Rosmery Murray CNP Primary Care Provider [phone] Encounter Details Date Type Department Care Team (Late st Contact Info) Description 06/02/2025 Orders Only [facility] CHC MED & PEDS [address] [place], [place] [phone] Provider, MD Alisha Social History Tobacco Use Types Packs/Day Years [...] Upcoming Encounters Date Type Department Care Team ([facility] Contact Info) Description 08/23/2025 10:30 AM EST Office Visit [facility] MED & PEDS 505 [place] [address] Rosmery Murray CNP 505 [place] [address] 08/31/2025 9:00 AM EST Clinical Support [facility] MED & PEDS 505 [place] [address] Donna Upton RN 505 [place] [address] documented as of this encounter Procedures Procedure Name Priority Date/Time Associated Diagnosis Comments HM MAMMOGRAPHY Routine 06/01/2025 9:01 AM EDT documented in this encounter Results * Hm Mammography (06/01/2025 9:01 AM EDT) Anatomical Region Laterality Modality Other us Historical Provider HEALTH MAINTENANCE Final Result documented in this encounter Visit Diagnoses Not on filedocumented in this encounter Additional Health Concerns Assessment Noted Time PHQ-9 Depression Total Score: 0 10/20/19 10:22 AM EST documented as of this encounter Care Teams Aerial Lineman Relationship Specialty Start Date End Date María Barron MD [address] [place] [address] PCP - General Family Medicine 10/04/13 06/27/25 Rosmery Murray CNP [address] [place] [address] PCP - General Family Medicine 06/28/25 documented as of this encounter
--- OUTSIDE RECORDS SUMMARY | 2025-08-22 10:46 | XMS_ITS | Encounter Summary ---
Author Organization [employer] Address 75 [facility] 7t [place] [address] Care Team Providers Care Comber Tender Name Role Phone María Barron MD Primary Care Provider [phone] Rosmery Murray CNP Primary Care Provider [phone] Reason for Visit * Reason Onset Date Comments returning call 11/13/2022 Encounter Details Date Type Department Care Team ([facility] st Contact Info) Description 11/13/2022 Telephone [facility] CHC MED & PEDS 505 [place] [address] María Barron MD 505 [place] [address] returning call Social History Tobacco Use Types [...] to pt. States she was seen at [facility] in [place] on 11/11/22.Per pt, completed a brain MRI. States that she did not understand the results so she called [facility] to have PCP interpret. Per pt, was called by staff from the hospital after call placed to [facility] and was informed of the results. [...] Description 08/23/2025 10:30 AM EST Office Visit [facility] MED & PEDS 505 [place] [address] Rosmery Murray CNP 505 [place] [address] 08/31/2025 9:00 AM EST Clinical Support [facility] MED & PEDS 505 [place] [address] Donna Upton RN 505 [place] [address] documented as of this encounter Visit Diagnoses Not on filedocumented in this encounter Care Teams Comber Tender Relationship Specialty Start Date End Date María Barron MD [address] [place] [address] PCP - General Family Medicine 10/04/13 06/27/25 Rosmery Murray CNP 505 [place] [address] PCP - General Family Medicine 06/28/25 documented as of this encounter
--- OUTSIDE RECORDS SUMMARY | 2025-08-22 10:46 | XMS_ITS | Encounter Summary ---
Author Organization [employer] Address 75 [facility] 7t [place] [address] Care Team Providers Care Harness Puller Name Role Phone María Barron MD Primary Care Provider [phone] Rosmery Murray CNP Primary Care Provider [phone] Reason for Visit * Reason Comments Med Refill Encounter Details Date Type Department Care Team ([facility] st Contact Info) Description 02/23/2024 Refill [facility] MEDICINE [address] [place] [address] María Barron MD [address] [place], [place] [phone] Social History Tobacco Use Types Packs/Day Years [...] Description 08/23/2025 10:30 AM EST Office Visit [facility] MED & PEDS [address] [place] [address] Rosmery Murray CNP 505 [place] [address] 08/31/2025 9:00 AM EST Clinical Support [facility] MED & PEDS [address] [place] [address] Donna Upton, KAJAL 505 [place] [address] documented as of this encounter Visit Diagnoses Not on filedocumented in this encounter Care Teams Harness Puller Relationship Specialty Start Date End Date María Barron MD [address] [place] [address] PCP - General Family Medicine 10/04/13 06/27/25 Rosmery Murray CNP 505 [place] [address] PCP - General Family Medicine 06/28/25 documented as of this encounter
--- OUTSIDE RECORDS SUMMARY | 2025-08-22 10:46 | XMS_ITS | Clinical Summary ---
Author Organization [facility] Address [address] [place] [address] Phone Care Team Providers Care Manager Risk Name Role Phone María Barron MD Primary Care Provider [phone] Allergies Active Allergy Reactions Criticality Noted Date [...] Date/Time Associated Diagnosis Comments BASIC METABOLIC PANEL (BMP) STAT 01/10/2025 7:50 AM EDT LIPID PANEL Routine 06/13/2024 1:09 PM EDT from Last 3 Months or Most Recently Relevant to Health Maintenance Results * (ABNORMAL) Basic metabolic panel (01/10/2025 7:50 AM EDT) SODIUM 138 136 - 145 mmol/L [facility] CHLORIDE 104 98 - 107 mmol/L [facility] POTASSIUM 3.6 3.4 - 5.1 mmol/L [facility] CO2 24 20 - 31 mmol/L [facility] BUN 15 6 - 23 mg/dL [facility] CREATININE 0.69 0.5 - 1.0 mg/dL [facility] GLUCOSE 108(H) 70 - 100 mg/dL [facility] CALCIUM 9.2 8.5 - 10.5 mg/dL [facility] EGFR 107 >58 mL/min/1.7 3m2 [facility] Comment:Estimated glomerular filtration rate calculated using the CKD-EPI refit equation. ANION GAP 10 3 - 17 mmol/L [facility] Blood 01/10/2025 7:50 AM EDT 01/10/2025 7:55 AM EDT us Chel Inarupesh Rios APRN LAB BLOOD BKR ORDERA BLES Final Result Performing Organization Address City/[facility]/ZIP Co de Phone Number [address] [phone] * (ABNORMAL) Lipid panel (06/13/2024 1:09 PM EDT) HDL 65 40 - 80 mg/dL [facility] CHOLESTEROL 290(H) 0 - 200 mg/dL [facility] TRIGLYCERIDES 323(H) 0 - 150 mg/dL [facility] LDL 160(H) 0 - 130 mg/dL [facility] CARDIAC RISK RATIO 4.5 W [facility] 06/13/2024 1:09 PM EDT 06/13/2024 1:36 PM EDT us Roshan Lock MD, MPH LAB BLOOD BKR ORDER JOAN Final Result Performing Organization Address City/[facility]/ZIP Co de Phone Number [address] [phone] from Last 3 Months or Most Recently Relevant to Health Maintenance Insurance [facility] C3 ACO C3 ACO [address] [place] [address] [place] [address] [place] [address] [place] [address] C[address] ACO [address] [place] [address] [place] [address] C3 ACO C3 ACO [facility] C3 ACO Advance Directives For more information, please contact: [phone] (9AM - 5PM [facility], Thursday-Thursday) * Full Code (Latest Code Status on File) Date Activated Date Inactivated Comments 06/13/2024 2:27 PM Question Answer Comments Code Status Confirmed With: Patient Care Teams Manager Risk Relationship Specialty Start Date End Date María Barron MD [address] [place] [address] PCP - General Family Medicine 04/23/21 Additional Source Comments The information contained in this document represents components of the legal health record. It is not the complete legal health record.[facility]
--- OUTSIDE RECORDS SUMMARY | 2025-08-22 10:46 | XMS_ITS | Encounter Summary ---
Author Organization [employer] Address 75 [facility] 7t [place] [address] Care Team Providers Care Color Specialist Name Role Phone María Barron MD Primary Care Provider [phone] Rosmery Murray CNP Primary Care Provider [phone] Reason for Visit * Reason Onset Date Comments Med Refill 02/23/2024 Encounter Details Date Type Department Care Team (Late st Contact Info) Description 02/23/2024 Telephone [facility] MEDICINE 230 [place] [address] María Barron MD [address] [place], [place] [phone] Med Refill Social History Tobacco Use Types [...] 0.5 MG tablet To be sent to: [id number] [place], [place] - [address] [place] [address] AT [facility] documented in this encounter Plan of Treatment Upcoming Encounters Date Type Department Care Team ([facility] Contact Info) Description 08/23/2025 10:30 AM EST Office Visit [facility] MED & PEDS 505 [place] [address] Rosmery Murray CNP 505 [place] [address] 08/31/2025 9:00 AM EST Clinical Support [facility] MED & PEDS 505 [place] [address] Donna Upton, KAJAL 505 [place], [place] [phone] documented as of this encounter Visit Diagnoses Not on filedocumented in this encounter Care Teams Color Specialist Relationship Specialty Start Date End Date María Barron MD [address] [place] [address] PCP - General Family Medicine 10/04/13 06/27/25 Rosmery Murray CNP [address] [place] [address] PCP - General Family Medicine 06/28/25 documented as of this encounter
--- OUTSIDE RECORDS SUMMARY | 2025-08-22 10:46 | XMS_ITS | Encounter Summary ---
Author Organization [employer] Address 75 [facility] 7t [place] [address] Care Team Providers Care Tear Down Man Name Role Phone María Barron MD Primary Care Provider [phone] Rosmery Murray CNP Primary Care Provider [phone] Reason for Visit * Reason Onset Date Comments Med Refill 04/28/2025 Encounter Details Date Type Department Care Team (Late st Contact Info) Description 04/28/[address] [facility] CHC MED & PEDS [address] [place] [address] María Barron MD 505 [place] [address] Anxiety Social History Tobacco Use Types Packs/Day [...] Description 08/23/2025 10:30 AM EST Office Visit [facility] MED & PEDS [address] [place] [address] Rosmery Murray CNP 505 [place] [address] 08/31/2025 9:00 AM EST Clinical Support [facility] MED & PEDS [address] [place] [address] Donna Upton, KAJAL 505 [place] [address] documented as of this encounter Visit Diagnoses Diagnosis Anxiety Anxiety state, unspecified documented in this encounter Additional Health Concerns Assessment Noted Time PHQ-9 Depression Total Score: 0 10/20/19 10:22 AM EST documented as of this encounter Care Teams Tear Down Man Relationship Specialty Start Date End Date María Barron MD [address] [place] [address] PCP - General Family Medicine 10/04/13 06/27/25 Rosmery Murray CNP 505 [place] [address] PCP - General Family Medicine 06/28/25 documented as of this encounter
--- OUTSIDE RECORDS SUMMARY | 2025-08-22 10:46 | XMS_ITS | Encounter Summary ---
Author Organization [facility] Address [address] [place] [address] Phone Care Team Providers Care Grades 7 8 Tutor Name Role Phone María Barron MD Primary Care Provider [phone] Encounter Details Date Type Department Care Team (Late st Contact Info) Description 01/10/2025 Procedure Pass [facility] Cat Scan [address] [place] [address] Social History Tobacco Use Types Packs/Day Years [...] 01/10/2025 7:38 AM EDT Joan Singh * [place] Suicide Severity Rating Scale (Screener/Recent Self-Report) Question [...] on filedocumented in this encounter Care Teams Grades 7 8 Tutor Relationship Specialty Start Date End Date María Barron MD [address] [place] [address] PCP - General Family Medicine 04/23/21 documented as of this encounter Additional Source Comments The information contained in this document represents components of the legal health record. It is not the complete legal health record.[facility]
--- OUTSIDE RECORDS SUMMARY | 2025-08-22 10:46 | XMS_ITS | Encounter Summary ---
Author Organization [employer] Address [address] [place] [address] 7t [place] [address] Care Team Providers Care Log Data Technician Name Role Phone María Barron MD Primary Care Provider [phone] Rosmery Murray CNP Primary Care Provider [phone] Reason for Visit * Reason Comments Med Refill Encounter Details Date Type Department Care Team (Late Contact Info) Description 02/03/2023 Refill [facility] CHC MED & PEDS [address] [place] [address] María Barron MD 505 [place] [address] Anxiety Social History Tobacco Use Types Packs/Day Years Used Date Smoking Tobacco: Every Day Cigarettes 0.5 13.2 Started: 06/2012 Smokeless Tobacco: Never Alcohol Use [...] Upcoming Encounters Date Type Department Care Team ([facility] Contact Info) Description 08/23/2025 10:30 AM EST Office Visit [facility] MED & PEDS [address] [place] [address] Rosmery Murray CNP 505 [place] [address] 08/31/2025 9:00 AM EST Clinical Support [facility] MED & PEDS [address] [place] [address] Donna Upton, KAJAL 505 [place] [address] documented as of this encounter Visit Diagnoses Diagnosis Anxiety Anxiety state, unspecified documented in this encounter Care Teams Log Data Technician Relationship Specialty Start Date End Date María Barron MD [address] [place] [address] PCP - General Family Medicine 10/04/13 06/27/25 Rosmery Murray CNP 505 [place] [address] PCP - General Family Medicine 06/28/25 documented as of this encounter
--- OUTSIDE RECORDS SUMMARY | 2025-08-22 10:46 | XMS_ITS | Encounter Summary ---
Author Organization [facility] Address [address] [place] [address] Phone Care Team Providers Care Blacktop Paver Operator Name Role Phone Maraí Barron MD Primary Care Provider [phone] Encounter Details Date Type Department Care Team (Late st Contact Info) Description 10/07/2022 Procedure Pass [facility] MRI [address] [place] [address] Social History Tobacco Use Types Packs/Day Years [...] 10/07/2022 8:13 AM Orestes Gayle, RN * [place] Suicide Severity Rating Scale (Screener/Recent Self-Report) Question [...] on filedocumented in this encounter Care Teams Blacktop Paver Operator Relationship Specialty Start Date End Date Mraía Barron MD [address] [place] [address] PCP - General Family Medicine 04/23/21 documented as of this encounter Additional Source Comments The information contained in this document represents components of the legal health record. It is not the complete legal health record.[facility]
--- OUTSIDE RECORDS SUMMARY | 2025-08-22 10:46 | XMS_ITS | Encounter Summary ---
Author Organization [employer] Address 75 [facility] 7t [place] [address] Care Team Providers Care Transmitter Engineer Name Role Phone María Barron MD Primary Care Provider [phone] Rosmery Murray CNP Primary Care Provider [phone] Reason for Visit * Reason Onset Date Comments Call Back Request 05/05/2024 Encounter Details Date Type Department Care Team (Late st Contact Info) Description 05/05/2024 Telephone [facility] MEDICINE [address] [place] [address] María Barron MD [address] [place], [place] [phone] Call Back Request Social History Tobacco Use [...] Miscellaneous Notes * Telephone Encounter - Marlen Leal - 05/05/2024 4:11 PM EDT Tc from pt stating a nurse from Clinic gave a call in regards to Physical appt coming up with PCP, database report writer sees no encounter. documented in this encounter Plan of Treatment Upcoming Encounters Date Type Department Care Team (Late st Contact Info) Description 08/23/2025 10:30 AM EST Office Visit [facility] MED & PEDS [address] [place] [address] Rosmery Murray CNP 505 [place] [address] 08/31/2025 9:00 AM EST Clinical Support [facility] MED & PEDS [address] [place] [address] Donna Upton, KAJAL 505 [place] [address] documented as of this encounter Visit Diagnoses Not on filedocumented in this encounter Care Teams Transmitter Engineer Relationship Specialty Start Date End Date María Barron MD [address] [place] [address] PCP - General Family Medicine 10/04/13 06/27/25 Rosmery Murray CNP 505 [place] [address] PCP - General Family Medicine 06/28/25 documented as of this encounter
--- OUTSIDE RECORDS SUMMARY | 2025-08-22 10:46 | XMS_ITS | Encounter Summary ---
Author Organization [facility] Address [address] [place] [address] Phone Care Team Providers Care Interrelated Special Education Teacher Name Role Phone María Barron MD Primary Care Provider [phone] Encounter Details Date Type Department Care Team (Late st Contact Info) Description 01/10/2025 Procedure Pass [facility] Cat Scan [address] [place] [address] Social History Tobacco Use Types Packs/Day Years [...] 01/10/2025 7:38 AM EDT Joan Singh * [place] Suicide Severity Rating Scale (Screener/Recent Self-Report) Question [...] on filedocumented in this encounter Care Teams Interrelated Special Education Teacher Relationship Specialty Start Date End Date María Barron MD [address] [place] [address] PCP - General Family Medicine 04/23/21 documented as of this encounter Additional Source Comments The information contained in this document represents components of the legal health record. It is not the complete legal health record.[facility]
--- OUTSIDE RECORDS SUMMARY | 2025-08-22 10:46 | XMS_ITS | Encounter Summary ---
Author Organization [employer] Address 75 [facility] 7t [place] [address] Care Team Providers Care Reception Specialist Name Role Phone María Barron MD Primary Care Provider [phone] Rosmery Murray CNP Primary Care Provider [phone] Reason for Visit * Reason Comments Med Refill Encounter Details Date Type Department Care Team ([facility] st Contact Info) Description 06/04/2025 Refill [facility] CHC MED & PEDS [address] [place] [address] María Barron MD 505 [place], [place] [phone] Social History Tobacco Use Types Packs/Day Years [...] Description 08/23/2025 10:30 AM EST Office Visit [facility] MED & PEDS [address] [place] [address] Rosmery Murray CNP 505 [place] [address] 08/31/2025 9:00 AM EST Clinical Support [facility] MED & PEDS [address] [place] [address] Donna Upton, KAJAL [address] [place] [address] documented as of this encounter Visit Diagnoses Not on filedocumented in this encounter Additional Health Concerns Assessment Noted Time PHQ-9 Depression Total Score: 0 10/20/19 10:22 AM EST documented as of this encounter Care Teams Reception Specialist Relationship Specialty Start Date End Date María Barron MD [address] [place] [address] PCP - General Family Medicine 10/04/13 06/27/25 Rosmery Murray CNP [address] [place] [address] PCP - General Family Medicine 06/28/25 documented as of this encounter
--- OUTSIDE RECORDS SUMMARY | 2025-08-22 10:47 | XMS_ITS | Encounter Summary ---
Author Organization [facility] Address [address] [place] [address] Phone Care Team Providers Care Bias Cutting Machine Operator Name Role Phone María Barron MD Primary Care Provider [phone] Encounter Details Date Type Department Care Team (Late st Contact Info) Description 12/01/2023 Procedure Pass [facility] Cat Scan [address] [place] [address] Social History Tobacco Use Types Packs/Day Years [...] 7:38 AM EST Manoj Queen RN * [place] Suicide Severity Rating Scale (Screener/Recent Self-Report) Question [...] on filedocumented in this encounter Care Teams Bias Cutting Machine Operator Relationship Specialty Start Date End Date María Barron MD [address] [place] [address] PCP - General Family Medicine 04/23/21 documented as of this encounter Additional Source Comments The information contained in this document represents components of the legal health record. It is not the complete legal health record.[facility]
--- OUTSIDE RECORDS SUMMARY | 2025-08-22 10:47 | XMS_ITS | Encounter Summary ---
Author Organization [employer] Address [address] [place] [address] 7 [place] [address] Care Team Providers Care Etl Analyst Name Role Phone María Barron MD Primary Care Provider [phone] Rosmery Murray CNP Primary Care Provider [phone] Reason for Visit * Reason Onset Date Comments Med Refill 06/03/2023 Encounter Details Date Type Department Care Team (Late Contact Info) Description 06/03/2023 Refill [facility] MED & PEDS [address] [place] [address] María Barron MD 505 [place], [place] [phone] Anxiety Social History Tobacco Use Types Packs/Day [...] Department Care Team (Late Contact Info) Description 08/23/2025 10:30 AM EST Office Visit [facility] MED & PEDS 505 [place], [place] [phone] Rosmery Murray CNP 505 [place], [place] [phone] 08/31/2025 9:00 AM EST Clinical Support [facility] CHC MED & PEDS 505 [place], [place] [phone] Donna Upton, RN 505 [place], [place] [phone] documented as of this encounter Visit Diagnoses Diagnosis Anxiety Anxiety state, unspecified documented in this encounter Care Teams Etl Analyst Relationship Specialty Start Date End Date María Barron MD [address] [place] [address] PCP - General Family Medicine 10/04/13 06/27/25 Rosmery Murray CNP 505 [place] [address] PCP - General Family Medicine 06/28/25 documented as of this encounter
--- OUTSIDE RECORDS SUMMARY | 2025-08-22 10:47 | XMS_ITS | Encounter Summary ---
Author Organization [employer] Address [address] [facility] 7t [place] [address] Care Team Providers Care Laborer Livestock Name Role Phone María Barron MD Primary Care Provider [phone] Rosmery Murray CNP Primary Care Provider [phone] Reason for Visit * Reason Onset Date Comments Med Refill 08/16/2024 Encounter Details Date Type Department Care Team (Late st Contact Info) Description 08/16/[address] [facility] CHC MED & PEDS 505 [place] [address] María Barron MD 505 [place], [place] [phone] Social History Tobacco Use Types Packs/Day Years [...] Description 08/23/2025 10:30 AM EST Office Visit [facility] MED & PEDS 505 [place] [address] Rosmery Murray CNP 505 [place] [address] 08/31/2025 9:00 AM EST Clinical Support [facility] MED & PEDS 505 [place] [address] Donna Upton, RN 505 [place] [address] documented as of this encounter Visit Diagnoses Not on filedocumented in this encounter Care Teams Laborer Livestock Relationship Specialty Start Date End Date María Barron MD [address] [place] [address] PCP - General Family Medicine 10/04/13 06/27/25 Rosmery Murray CNP 505 [place] [address] PCP - General Family Medicine 06/28/25 documented as of this encounter
--- OUTSIDE RECORDS SUMMARY | 2025-08-22 10:47 | XMS_ITS | Encounter Summary ---
Author Organization [employer] Address 75 [facility] 7t [place] [address] Care Team Providers Care Nail Technician Teacher Name Role Phone María Barron MD Primary Care Provider [phone] Rosmery Murray CNP Primary Care Provider [phone] Reason for Visit * Reason Onset Date Comments Results 09/24/2023 Encounter Details Date Type Department Care Team ([facility] Contact Info) Description 09/24/2023 Telephone [facility] CHC MED & PEDS 505 [place] [address] María Barron MD 505 [place] [address] Results Social History Tobacco Use Types Packs/Day [...] CNM recommendations and pt agrees to have ELDERLY SITTER referral placed for consult and possible endometrial bx. Pt informed message will be sent toCMN and pt will be informed of referral [...] periods or abnormal bleeding, I would advise ELDERLY SITTER consult for fibroids to see if endometrial [...] Description 08/23/2025 10:30 AM EST Office Visit [facility] MED & PEDS 505 [place] [address] Rosmery Murray CNP 505 [place] [address] 08/31/2025 9:00 AM EST Clinical Support [facility] MED & PEDS 505 [place] [address] Donna Upton RN 505 [place] [address] documented as of this encounter Visit Diagnoses Not on filedocumented in this encounter Care Teams Nail Technician Teacher Relationship Specialty Start Date End Date María Barron MD [address] [place] [address] PCP - General Family Medicine 10/04/13 06/27/25 Rosmery Murray CNP [address] [place] [address] PCP - General Family Medicine 06/28/25 documented as of this encounter
--- OUTSIDE RECORDS SUMMARY | 2025-08-22 10:47 | XMS_ITS | Encounter Summary ---
Author Organization [facility] Address [address] [place] [address] Phone Care Team Providers Care Parking Assistant Name Role Phone María Barron MD Primary Care Provider [phone] Encounter Details Date Type Department Care Team (Late st Contact Info) Description 10/07/2022 Procedure Pass [facility] Cat Scan [address] [place] [address] Social History Tobacco Use Types Packs/Day Years [...] 10/07/2022 8:13 AM Orestes Gayle, RN * [place] Suicide Severity Rating Scale (Screener/Recent Self-Report) Question [...] on filedocumented in this encounter Care Teams Parking Assistant Relationship Specialty Start Date End Date María Barron MD [address] [place] [address] PCP - General Family Medicine 04/23/21 documented as of this encounter Additional Source Comments The information contained in this document represents components of the legal health record. It is not the complete legal health record.[facility]
--- OUTSIDE RECORDS SUMMARY | 2025-08-22 10:47 | XMS_ITS | Encounter Summary ---
Author Organization [facility] Address [address] [place] [address] Phone Care Team Providers Care Front Desk Clerk Name Role Phone María Barron MD Primary Care Provider [phone] Encounter Details Date Type Department Care Team (Late st Contact Info) Description 10/07/2022 Procedure Pass [facility] Cat Scan [address] [place] [address] Social History Tobacco Use Types Packs/Day Years [...] 10/07/2022 8:13 AM Orestes Gayle, RN * [place] Suicide Severity Rating Scale (Screener/Recent Self-Report) Question [...] on filedocumented in this encounter Care Teams Front Desk Clerk Relationship Specialty Start Date End Date María Barron MD [address] [place] [address] PCP - General Family Medicine 04/23/21 documented as of this encounter Additional Source Comments The information contained in this document represents components of the legal health record. It is not the complete legal health record.[facility]
--- OUTSIDE RECORDS SUMMARY | 2025-08-22 10:47 | XMS_ITS | Encounter Summary ---
Author Organization [facility] Address [address] [place] [address] Phone Care Team Providers Care Timber Management Technician Name Role Phone María Barron MD Primary Care Provider [phone] Encounter Details Date Type Department Care Team (Late st Contact Info) Description 06/13/2024 Procedure Pass [facility] Cat Scan [address] [place] [address] Social History Tobacco Use Types Packs/Day Years [...] 12:24 PM EDT Gerardo Giles, RN * [place] Suicide Severity Rating Scale (Screener/Recent Self-Report) Question [...] on filedocumented in this encounter Care Teams Timber Management Technician Relationship Specialty Start Date End Date María Barron MD [address] [place] [address] PCP - General Family Medicine 04/23/21 documented as of this encounter Additional Source Comments The information contained in this document represents components of the legal health record. It is not the complete legal health record.[facility]
--- OUTSIDE RECORDS SUMMARY | 2025-08-22 10:47 | XMS_ITS | Encounter Summary ---
Author Organization [facility] Address [address] [place] [address] Phone Care Team Providers Care Speech And Language Tutor Name Role Phone María Barron MD Primary Care Provider [phone] Encounter Details Date Type Department Care Team (Late st Contact Info) Description 06/13/2024 Procedure Pass [facility] Cat Scan [address] [place] [address] Social History Tobacco Use Types Packs/Day Years [...] 12:24 PM EDT Gerardo Giles, RN * [place] Suicide Severity Rating Scale (Screener/Recent Self-Report) Question [...] on filedocumented in this encounter Care Teams Speech And Language Tutor Relationship Specialty Start Date End Date María Barron MD [address] [place] [address] PCP - General Family Medicine 04/23/21 documented as of this encounter Additional Source Comments The information contained in this document represents components of the legal health record. It is not the complete legal health record.[facility]
--- OUTSIDE RECORDS SUMMARY | 2025-08-22 10:47 | XMS_ITS | Encounter Summary ---
Author Organization [employer] Address [address] [place] [address] 7t [place] [address] Care Team Providers Care Machine Feed Operator Name Role Phone María Barron MD Primary Care Provider [phone] Rosmery Murray CNP Primary Care Provider [phone] Reason for Visit * Reason Onset Date Comments Med Refill 04/02/2023 Encounter Details Date Type Department Care Team (Late Contact Info) Description 04/02/2023 Refill [facility] CHC MED & PEDS [address] [place] [address] María Barron MD 505 [place] [address] Anxiety Social History Tobacco Use Types Packs/Day [...] Description 08/23/2025 10:30 AM EST Office Visit [facility] MED & PEDS 505 [place] [address] Rosmery Murray CNP 505 [place] [address] 08/31/2025 9:00 AM EST Clinical Support [facility] MED & PEDS 505 [place] [address] Donna Upton, KAJAL 505 [place] [address] documented as of this encounter Visit Diagnoses Diagnosis Anxiety Anxiety state, unspecified documented in this encounter Care Teams Machine Feed Operator Relationship Specialty Start Date End Date María Barron MD [address] [place] [address] PCP - General Family Medicine 10/04/13 06/27/25 Rosmery Murray CNP 505 [place] [address] PCP - General Family Medicine 06/28/25 documented as of this encounter
--- OUTSIDE RECORDS SUMMARY | 2025-08-22 10:47 | XMS_ITS | Encounter Summary ---
Author Organization [employer] Address [address] [place] [address] 7 [place] [address] Care Team Providers Care Lumber Carrier Name Role Phone María Barron MD Primary Care Provider [phone] Rosmery Murray CNP Primary Care Provider [phone] Reason for Visit * Reason Comments Med Refill Encounter Details Date Type Department Care Team (Late Contact Info) Description 07/01/2023 Refill [facility] MED & PEDS [address] [place] [address] María Barron MD 505 [place] [address] Anxiety Social History Tobacco Use Types Packs/Day [...] 10:30 AM EST Office Visit [facility] CHC MED & PEDS 505 [place] [address] Rosmery Murray CNP 505 [place] [address] 08/31/2025 9:00 AM EST Clinical Support [facility] CHC MED & PEDS 505 [place] [address] Donna Upton, KAJAL 505 [place] [address] documented as of this encounter Visit Diagnoses Diagnosis Anxiety Anxiety state, unspecified documented in this encounter Care Teams Lumber Carrier Relationship Specialty Start Date End Date María Barron MD [address] [place] [address] PCP - General Family Medicine 10/04/13 06/27/25 Rosmery Murray CNP 505 [place] [address] PCP - General Family Medicine 06/28/25 documented as of this encounter
--- OUTSIDE RECORDS SUMMARY | 2025-08-22 10:47 | XMS_ITS | Encounter Summary ---
Author Organization [employer] Address [address] [place] [address], [place] [address] Care Team Providers Care Enrichment Director Name Role Phone María Barron MD Primary Care Provider [phone] Rosmery Murray CNP Primary Care Provider [phone] Reason for Visit * Reason Comments Med Refill Encounter Details Date Type Department Care Team (Late Contact Info) Description 03/04/2023 Refill [facility] MED & PEDS 505 [place] [address] Alcides uK MD 505 [place], [place] [phone] Anxiety Social History Tobacco Use Types Packs/Day [...] Type Department Care Team ([facility] Contact Info) Description 08/23/2025 10:30 AM EST Office Visit [facility] MED & PEDS 505 [place], [place] [phone] Rosmery Murray CNP 505 [place] [address] 08/31/2025 9:00 AM EST Clinical Support [facility] CHC MED & PEDS 505 [place] [address] Donna Upton, KAJAL 505 [place] [address] documented as of this encounter Visit Diagnoses Diagnosis Anxiety Anxiety state, unspecified documented in this encounter Care Teams Enrichment Director Relationship Specialty Start Date End Date María Barron MD [address] [place] [address] PCP - General Family Medicine 10/04/13 06/27/25 Rosmery Murray CNP 505 [place] [address] PCP - General Family Medicine 06/28/25 documented as of this encounter
--- OUTSIDE RECORDS SUMMARY | 2025-08-22 10:47 | XMS_ITS | Encounter Summary ---
Author Organization [facility] Address [address] [place] [address] Phone Care Team Providers Care Software Developer Mid Level Name Role Phone María Barron MD Primary Care Provider [phone] Encounter Details Date Type Department Care Team (Late st Contact Info) Description 06/13/2024 Procedure Pass [facility] [address] [place] [address] Social History Tobacco Use Types Packs/Day Years [...] 12:24 PM EDT Gerardo Giles RN * [place] Suicide Severity Rating Scale (Screener/Recent Self-Report) Question [...] on filedocumented in this encounter Care Teams Software Developer Mid Level Relationship Specialty Start Date End Date María Barron MD [address] [place] [address] PCP - General Family Medicine 04/23/21 documented as of this encounter Additional Source Comments The information contained in this document represents components of the legal health record. It is not the complete legal health record.[facility]
--- OUTSIDE RECORDS SUMMARY | 2025-08-22 10:47 | XMS_ITS | Encounter Summary ---
Author Organization [employer] Address 75 [facility] 7t [place] [address] Care Team Providers Care Service Associate Name Role Phone María Barron MD Primary Care Provider Rosmery Murray CNP Primary Care Provider [phone] Encounter Details Date Type Department Care Team (Late st Contact Info) Description 10/26/2023 Orders Only [facility] CHC MED & PEDS 505 [place], [place] [phone] Alcides Ku MD 505 [place], [place] [phone] Social History Tobacco Use Types Packs/Day Years [...] Description 08/23/2025 10:30 AM EST Office Visit [facility] MED & PEDS 505 [place] [address] Rosmery Murray CNP 505 [place] [address] 08/31/2025 9:00 AM EST Clinical Support [facility] MED & PEDS 505 [place] [address] Donna Upton, KAJAL 505 [place] [address] documented as of this encounter Visit Diagnoses Not on filedocumented in this encounter Care Teams Service Associate Relationship Specialty Start Date End Date María Barron MD [address] [place] [address] PCP - General Family Medicine 10/04/13 06/27/25 Rosmery Murray CNP 505 [place] [address] PCP - General Family Medicine 06/28/25 documented as of this encounter
--- OUTSIDE RECORDS SUMMARY | 2025-08-22 10:47 | XMS_ITS | Encounter Summary ---
Author Organization [employer] Address 75 [facility] 7t [place] [address] Care Team Providers Care Vulnerability Assessment Analyst Name Role Phone María Barron MD Primary Care Provider [phone] Rosmery Murray CNP Primary Care Provider [phone] Reason for Visit * Reason Comments Med Refill Encounter Details Date Type Department Care Team ([facility] st Contact Info) Description 10/26/2023 Refill [facility] CHC MED & PEDS 505 [place], [place] [phone] María Barron MD 505 [place] [address] Anxiety Social History Tobacco Use Types Packs/Day [...] Description 08/23/2025 10:30 AM EST Office Visit [facility] MED & PEDS 505 [place] [address] Rosmery Murray CNP 505 [place] [address] 08/31/2025 9:00 AM EST Clinical Support [facility] MED & PEDS 505 [place] [address] Donna Upton, RN 505 [place] [address] documented as of this encounter Visit Diagnoses Diagnosis Anxiety Anxiety state, unspecified documented in this encounter Care Teams Vulnerability Assessment Analyst Relationship Specialty Start Date End Date María Barron MD [address] [place] [address] PCP - General Family Medicine 10/04/13 06/27/25 Rosmery Murray CNP 505 [place] [address] PCP - General Family Medicine 06/28/25 documented as of this encounter
--- OUTSIDE RECORDS SUMMARY | 2025-08-22 10:47 | XMS_ITS | Encounter Summary ---
Author Organization [facility] Address [address] [place] [address] Phone Care Team Providers Care Nailing Machine Operator Automatic Name Role Phone María Barron MD Primary Care Provider [phone] Encounter Details Date Type Department Care Team (Late st Contact Info) Description 04/23/[address] [facility] Cat Scan [address] [place] [address] Social History Tobacco Use Types Packs/Day Years [...] 11:10 AM EDT Dominique Kimball RN * [place] Suicide Severity Rating Scale (Screener/Recent Self-Report) Question [...] documented as of this encounter Care Teams Nailing Machine Operator Automatic Relationship Specialty Start Date End Date María Barron MD [address] [place] [address] PCP - General Family Medicine 04/23/21 documented as of this encounter Additional Source Comments The information contained in this document represents components of the legal health record. It is not the complete legal health record.[facility]
--- OUTSIDE RECORDS SUMMARY | 2025-08-22 10:47 | XMS_ITS | Encounter Summary ---
Author Organization [facility] Address [address] [place] [address] Phone Care Team Providers Care Retail Presentation Specialist Name Role Phone María Barron MD Primary Care Provider [phone] Encounter Details Date Type Department Care Team (Late st Contact Info) Description 02/04/[address] [facility] Cat Scan [address] [place] [address] Social History Tobacco Use Types Packs/Day Years [...] 02/04/2022 7:46 AM EDT Jewel Godfrey * [place] Suicide Severity Rating Scale (Screener/Recent Self-Report) Question [...] documented as of this encounter Care Teams Retail Presentation Specialist Relationship Specialty Start Date End Date María Barron MD [address] [place] [address] PCP - General Family Medicine 04/23/21 documented as of this encounter Additional Source Comments The information contained in this document represents components of the legal health record. It is not the complete legal health record.[facility]
--- OUTSIDE RECORDS SUMMARY | 2025-08-22 10:47 | XMS_ITS | Encounter Summary ---
Author Organization [employer] Address [address] [place] [address] 7 [place] [address] Care Team Providers Care Creping Machine Operator Helper Name Role Phone María Barron MD Primary Care Provider [phone] Rosmery Murray CNP Primary Care Provider [phone] Reason for Visit * Reason Onset Date Comments Med Refill 06/03/2023 Encounter Details Date Type Department Care Team (Late Contact Info) Description 06/03/[address] [facility] MED & PEDS 505 [place] [address] María Barron MD 505 [place], [place] [phone] Anxiety Social History Tobacco Use Types Packs/Day [...] Description 08/23/2025 10:30 AM EST Office [facility] MED & PEDS 505 [place], [place] [phone] Rosmery Murray CNP 505 [place], [place] [phone] 08/31/2025 9:00 AM EST Clinical Support [facility] CHC MED & PEDS 505 [place], [place] [phone] Donna Upton, RN 505 [place], [place] [phone] documented as of this encounter Visit Diagnoses Diagnosis Anxiety Anxiety state, unspecified documented in this encounter Care Teams Creping Machine Operator Helper Relationship Specialty Start Date End Date María Barron MD [address] [place] [address] PCP - General Family Medicine 10/04/13 06/27/25 Rosmery Murray CNP 505 [place] [address] PCP - General Family Medicine 06/28/25 documented as of this encounter
--- OUTSIDE RECORDS SUMMARY | 2025-08-22 10:48 | XMS_ITS | Encounter Summary ---
Author Organization [employer] Address 75 [facility] 7t [place] [address] Care Team Providers Care Cigar Packer Name Role Phone María Barron MD Primary Care Provider [phone] Rosmery Murray CNP Primary Care Provider [phone] Reason for Visit * Reason Onset Date Comments Med Refill 10/11/2024 Encounter Details Date Type Department Care Team (Late st Contact Info) Description 10/11/2024 Refill [facility] CHC MED & PEDS [address] [place] [address] María Barron MD 505 [place], [place] [phone] Anxiety Social History Tobacco Use Types Packs/Day [...] Description 08/23/2025 10:30 AM EST Office Visit [facility] MED & PEDS 505 [place] [address] Rosmery Murray CNP 505 [place] [address] 08/31/2025 9:00 AM EST Clinical Support [facility] MED & PEDS 505 [place] [address] Donna Upton, KAJAL 505 [place] [address] documented as of this encounter Visit Diagnoses Diagnosis Anxiety Anxiety state, unspecified documented in this encounter Care Teams Cigar Packer Relationship Specialty Start Date End Date María Barron MD [address] [place] [address] PCP - General Family Medicine 10/04/13 06/27/25 Rosmery Murray CNP 505 [place] [address] PCP - General Family Medicine 06/28/25 documented as of this encounter
--- OUTSIDE RECORDS SUMMARY | 2025-08-22 10:48 | XMS_ITS | Encounter Summary ---
Author Organization [employer] Address 75 [facility] 7t [place] [address] Care Team Providers Care Senior Manufacturing Technician Name Role Phone María Barron MD Primary Care Provider [phone] Rosmery Murray CNP Primary Care Provider [phone] Encounter Details Date Type Department Care Team (Late st Contact Info) Description 01/17/2025 Orders Only [facility] CHC MED & PEDS 505 [place], [place] [phone] María Barron MD 505 [place], [place] [phone] Social History Tobacco Use Types Packs/Day Years [...] [facility] MED & PEDS [address] [place] [address] Rosmery Murray CNP 505 [place] [address] 08/31/2025 9:00 AM EST Clinical Support [facility] MED & PEDS 505 [place] [address] Donna Upton RN 505 [place] [address] documented as of this encounter Visit Diagnoses Not on filedocumented in this encounter Additional Health Concerns Assessment Noted Time PHQ-9 Depression Total Score: 0 10/20/19 10:22 AM EST documented as of this encounter Care Teams Senior Manufacturing Technician Relationship Specialty Start Date End Date María Barron MD [address] [place] [address] PCP - General Family Medicine 10/04/13 06/27/25 Rosmery Murray CNP 505 [place] [address] PCP - General Family Medicine 06/28/25 documented as of this encounter
--- OUTSIDE RECORDS SUMMARY | 2025-08-22 10:48 | XMS_ITS | Encounter Summary ---
Author Organization [email or web address] Address [address] [facility] 7t [place] [address] Care Team Providers Care Medical Sociologist Name Role Phone María Barron MD Primary Care Provider [phone] Rosmery Murray CNP Primary Care Provider [phone] Reason for Visit * Reason Onset Date Comments Med Refill 07/31/2023 Encounter Details Date Type Department Care Team (Late st Contact Info) Description 07/31/2023 Refill [facility] [address] [place] [address] María Barron MD [address] [place], [place] [phone] Anxiety Social History Tobacco Use Types Packs/Day [...] 08/23/2025 10:30 AM EST Office Visit [facility] [address] [place] [address] Rosmery Murray CNP 505 [place] [address] 08/31/2025 9:00 AM EST Clinical Support [facility] [address] [place] [address] Donna Upton, RN [address] [place] [address] documented as of this encounter Visit Diagnoses Diagnosis Anxiety Anxiety state, unspecified documented in this encounter Care Teams Medical Sociologist Relationship Specialty Start Date End Date María Barron MD [address] [place] [address] PCP - General Family Medicine 10/04/13 06/27/25 Rosmery Murray CNP [address] [place] [address] PCP - General Family Medicine 06/28/25 documented as of this encounter
--- OUTSIDE RECORDS SUMMARY | 2025-08-22 10:48 | XMS_ITS | Encounter Summary ---
Author Organization [employer] Address [address] [facility] 7t [place] [address] Care Team Providers Care Gas Regulator Repairer Helper Name Role Phone María Barron MD Primary Care Provider [phone] Rosmery Murray CNP Primary Care Provider [phone] Reason for Visit * Reason Onset Date Comments Med Refill 11/25/2023 Encounter Details Date Type Department Care Team (Late st Contact Info) Description 11/25/2023 Refill [facility] MED & PEDS [address] [place] [address] Alcides Ku MD 505 [place] [address] Anxiety Social History Tobacco Use Types Packs/Day [...] Description 08/23/2025 10:30 AM EST Office Visit [facility] MED & PEDS [address] [place] [address] Rosmery Murray CNP 505 [place] [address] 08/31/2025 9:00 AM EST Clinical Support [facility] MED & PEDS [address] [place] [address] Donna Upton, KAJAL 505 [place] [address] documented as of this encounter Visit Diagnoses Diagnosis Anxiety Anxiety state, unspecified documented in this encounter Care Teams Gas Regulator Repairer Helper Relationship Specialty Start Date End Date María Barron MD [address] [place] [address] PCP - General Family Medicine 10/04/13 06/27/25 Rosmery Murray CNP [address] [place] [address] PCP - General Family Medicine 06/28/25 documented as of this encounter
--- OUTSIDE RECORDS SUMMARY | 2025-08-22 10:48 | XMS_ITS | Encounter Summary ---
Author Organization [email or web address] Address 75 [facility] 7t [place] [address] Care Team Providers Care Call Center Team Leader Name Role Phone María Barron MD Primary Care Provider [phone] Rosmery Murray CNP Primary Care Provider [phone] Reason for Visit * Reason Onset Date Comments Med Refill 08/27/2023 Encounter Details Date Type Department Care Team (Late st Contact Info) Description 08/27/2023 Refill [facility] MED & PEDS [address] [place] [address] María Barron MD 505 [place], [place] [phone] Anxiety Social History Tobacco Use Types Packs/Day [...] Description 08/23/2025 10:30 AM EST Office Visit [facility] MED [facility] PEDS [address] [place] [address] Rosmery Murray CNP [address] [place] [address] 08/31/2025 9:00 AM EST Clinical Support [facility] MED [facility] [address] [place] [address] Donna Upton, RN [address] [place] [address] documented as of this encounter Visit Diagnoses Diagnosis Anxiety Anxiety state, unspecified documented in this encounter Care Teams Call Center Team Leader Relationship Specialty Start Date End Date María Barron MD [address] [place] [address] PCP - General Family Medicine 10/04/13 06/27/25 Rosmery Murray CNP 505 [place] [address] PCP - General Family Medicine 06/28/25 documented as of this encounter
--- OUTSIDE RECORDS SUMMARY | 2025-08-22 10:48 | XMS_ITS | Encounter Summary ---
Author Organization [employer] Address 75 [facility] 7t [place] [address] Care Team Providers Care Core Shaper Sides Name Role Phone María Barron MD Primary Care Provider [phone] Rosmery Murray CNP Primary Care Provider [phone] Reason for Visit * Reason Onset Date Comments Referral 10/06/2023 Encounter Details Date Type Department Care Team ([facility] st Contact Info) Description 10/06/2023 Telephone [facility] MED & PEDS [address] [place] [address] María Barron MD 505 [place] [address] Referral Social History Tobacco Use Types Packs/Day [...] Miscellaneous Notes * Telephone Encounter - Shannon Eloy - 10/06/2023 3:26 PM EST Tc from [facility] referral to [facility] was sent to wrong fax number. Please re fax referral to [phone] documented in this encounter Plan of Treatment Upcoming Encounters Date Type Department Care Team (Late st Contact Info) Description 08/23/2025 10:30 AM EST Office Visit [facility] MED & PEDS [address] [place] [address] Rosmery Murray CNP 505 [place] [address] 08/31/2025 9:00 AM EST Clinical Support [facility] MED & PEDS [address] [place] [address] Donna Upton RN 505 [place] [address] documented as of this encounter Visit Diagnoses Not on filedocumented in this encounter Care Teams Core Shaper Sides Relationship Specialty Start Date End Date María Barron MD [address] [place] [address] PCP - General Family Medicine 10/04/13 06/27/25 Rosmery Murray CNP 505 [place] [address] PCP - General Family Medicine 06/28/25 documented as of this encounter
--- OUTSIDE RECORDS SUMMARY | 2025-08-22 10:48 | XMS_ITS | Encounter Summary ---
Author Organization [employer] Address 75 [facility] 7t [place] [address] Care Team Providers Care Assembler Steam And Gas Turbine Name Role Phone María Barron MD Primary Care Provider [phone] Rosmery Murray CNP Primary Care Provider [phone] Reason for Visit * Reason Onset Date Comments Appointment Request 07/14/2023 Encounter Details Date Type Department Care Team ([facility] st Contact Info) Description 07/14/2023 Telephone [facility] [address] [place] [address] María Barron MD [address] [place], [place] [phone] Appointment Request Social History Tobacco Use Types [...] Miscellaneous Notes * Telephone Encounter - Jacqueline Zeferino - 07/14/2023 10:09 AM EDT Tc from patient requesting to r/s DRILL SHARPENER appt from 08/12/23. Details: DRILL SHARPENER [place], KAREL 7 documented in this encounter Plan of Treatment Upcoming Encounters Date Type Department Care Team (Late st Contact Info) Description 08/23/2025 10:30 AM EST Office Visit [facility] MED & PEDS [address] [place] [address] Rosmery Murray CNP 505 [place] [address] 08/31/2025 9:00 AM EST Clinical Support [facility] MED & PEDS [address] [place] [address] Donna Upton, KAJAL [address] [place] [address] documented as of this encounter Visit Diagnoses Not on filedocumented in this encounter Care Teams Assembler Steam And Gas Turbine Relationship Specialty Start Date End Date María Barron MD [address] [place] [address] PCP - General Family Medicine 10/04/13 06/27/25 Rosmery Murray CNP [address] [place] [address] PCP - General Family Medicine 06/28/25 documented as of this encounter
--- OUTSIDE RECORDS SUMMARY | 2025-08-22 10:48 | XMS_ITS | Clinical Summary ---
Author Organization [employer] Address 75 [facility] 7t [place] [address] Care Team Providers Care Cathead Worker Name Role Phone Trevor Joshlukas BRASWELL Primary Care Provider [phone] Allergies Active Allergy Reactions Criticality Noted Date Comments Codeine Hives 04/23/2021 Ibuprofen 12/18/2022 Other reaction(s): swelling Nsaids Other 02/07/2013 Non-steroidal anti-inflammatory agent (substance) Medications cetirizine (ZyrTEC) 10 MG tablet TAKE 1 [...] (third) day. 10 patch 05/12/20 24 Active dilTIAZem (Cardizem) 60 MG immediate release tablet TAKE 1 TABLET BY MOUTH EVERY 12 HOURS 180 tablet 3 08/17/20 24 Active meclizine (Antivert) 25 MG tablet Take 1 tablet (25 mg) by mouth if needed in the morning, at noon, and at bedtime for dizziness. 1 tab po TID 90 tablet 3 12/08/19 25 Active Neomycin-Polym yxin-HC 1 % solution Administer 3 drops into affected ear(s) 4 times daily. 10 mL 03/08/20 25 Active albuterol 108 (90 Base) MCG/ACT inhaler INHALE 2 PUFFS BY MOUTH EVERY 4 HOURS IF NEEDED FOR WHEEZING OR SHORTNESS OF BREATH 18 g 11 04/28/20 25 Active cyclobenzaprin e (Flexeril) 10 MG tabletIndicati ons:Spasm of thoracic back muscle Take 1 tablet (10 mg) by mouth at bedtime for 10 days. 10 tablet 05/30/20 25 Active fluticasone (Flonase) 50 MCG/ACT nasal sprayIndicatio ns:Allergic rhinitis due to other allergic trigger, unspecified seasonality SPRAY 1 SPRAY INTO EACH NOSTRIL TWICE A DAY 16 g 3 05/30/20 25 Active atorvastatin (Lipitor) 40 MG tablet Take 1 tablet (40 mg) by mouth Once per day. 90 tablet 06/01/20 25 Active omeprazole (PriLOSEC) [address] capsule Take 1 capsule (20 mg) by mouth before breakfast. Do not crush or chew. 30 capsule 11 06/29/20 25 026 Active hydroCHLOROthi azide (HYDRODiuril) 25 MG tablet Take 1 tablet (25 mg) by mouth Once per day. 90 tablet 1 07/07/20 25 Active hydrALAZINE (Apresoline) 10 MG tabletIndicati ons:Hypertensi on, unspecified type TAKE 1 TABLET BY MOUTH TWICE DAILY WITH FOOD 180 tablet 07/25/20 25 Active ALPRAZolam (Xanax) 0.5 MG tabletIndicati ons:Anxiety TAKE 1 TABLET BY MOUTH BID Do not start before July 29, 2025. 60 tablet 07/29/20 25 Active amitriptyline (Elavil) 25 MG tablet Take 25 mg by mouth at bedtime. Active hydrALAZINE (Apresoline) 10 MG tabletIndicati ons:Hypertensi on, unspecified type TAKE 1 TABLET BY MOUTH TWICE DAILY WITH FOOD 180 tablet 04/28/20 25 025 Discontinued ALPRAZolam (Xanax) 0.5 MG tabletIndicati ons:Anxiety TAKE 1 TABLET BY MOUTH BID Do not start before June 28, 2025. 60 tablet 06/28/20 25 025 Discontinued(Re order (will not trigger notification to Pharmacy)) Active Problems Problem Noted Date Diagnosed Date Acute otitis externa of right ear 03/08/2025 Long-term current use of benzodiazepine 02/10/20 25 Benign paroxysmal positional vertigo 12/30/2024 Neoplasm of uncertain behavior of nasopharynx HTN (hypertension) 05/12/2024 Severe obesity (BMI 35.0-39.9) with comorbidity (CMS/HCC) 05/12/2024 Vertigo 05/12/2024 Assessment & Plan (05/12/2024 [...] Note: Date Diagnosed: 09/05/2015 9:05 PM (G43.819) Tobacco user 09/05/2015 Overview (08/21/2025): Tobacco use; Note: Date Diagnosed: 09/05/2015 9:06 PM (Z72.0) Dizziness and giddiness 09/05/2015 Overview (08/21/2025): Dizziness and giddiness; Note: Date Diagnosed: 09/05/2015 9:05 PM (R42) Palpitations 02/10/2014 Gastroesophageal reflux disease 04/26/2013 Smoker 04/26/2013 Anxiety 03/17/2013 Resolved Problems Problem Noted Date Diagnosed Date Resolved Date Long-term current use of opiate analgesic 02/09/2025 02/09/2025 Encounters Date Type Department Care Team Description 08/21/2025 Telephone [facility] MED & PEDS [address] [place] [address] Rosmery Murray CNP chart prep 08/16/2025 Travel 08/01/2025 Travel 07/31/2025 Telephone [facility] [address] [place] [address] Shirley Brito, KAJAL 07/28/2025 Orders Only [facility] MED & PEDS [address] [place] [address] Rosmery Murray CNP Dizziness (Primary Dx) 07/26/2025 Refill [facility] PED[facility] [address] [place] [address] María Barron MD Anxiety 07/25/2025 Refill [facility] [address] [place] [address] María Barron MD Hypertension, unspecified type 07/05/2025 Refill [facility] PED[facility] [address] [place] [address] María Barron MD 06/29/2025 Orders Only [facility] [address] [place] [address] María Barron MD 06/28/2025 8:45 AM EDT Telemedicine [facility] [address] [place] [address] María Barron MD Anxiety (Primary Dx); Vertigo; Gastroesophageal reflux disease without esophagitis 06/26/2025 Refill [facility] PED[facility] [address] [place] [address] María Barron MD Anxiety 06/21/2025 Travel 06/19/2025 10:00 AM EDT Telemedicine [facility] P[facility] [address] [place] [address] Donna Upton RN Long-term current use of benzodiazepine 06/19/2025 Travel 06/12/2025 Travel 06/06/2025 Orders Only [facility] [address] [place] [address] María Barron MD Colon cancer screening (Primary Dx) 06/04/2025 Refill [facility] [address] [place] [address] María Barron MD 06/02/2025 Results Follow-Up [facility] [address] [place] [address] María Barron MD POCT Glucose, Basic Metabolic Panel, Lipid Panel, Standard, Hepatic Function Panel 06/02/2025 Orders Only [facility] [address] [place] [address] Alisha Nixon MD 05/31/2025 Refill [facility] [address] [place] [address] María Barron MD 05/30/2025 9:00 AM EDT Office Visit [facility] [address] [place] [address] María Barron MD Primary hypertension (Primary Dx); Anxiety; Vertigo; Spasm of thoracic back muscle; Screening for colon cancer 05/30/2025 Refill [facility] [address] [place] [address] María Barron MD Allergic rhinitis due to other allergic trigger, unspecified seasonality 05/30/2025 Travel 05/26/2025 Telephone [facility] [address] [place] [address] María Barron MD chart prep 05/24/2025 Refill [facility] P[facility] [address] [place] [address] Alcides Ku MD Anxiety 05/23/2025 Travel 05/22/2025 Patient Outreach [facility] [address] [place] [address] María Barron MD Pre-visit Planning (SDOH screening negative and Tobacco screening negative) from Last 3 Months Immunizations Immunization Administration Dates Next Due Pfizer Covid-19 Vaccine 12+ 05/23/2021, Pfizer Covid-19 Vaccine 12+ lisseth-sucrose (Vazquez C ap) 05/23/2021,04/29/2021 Tdap 01/01/2022 Family History Medical [...] EST Office Visit [facility] PED[facility] [address] [place] [address] Rosmery Murray CNP 505 [place] [address] 08/31/2025 9:00 AM EST Clinical Support [facility] P[facility] [address] [place] [address] Donna Upton, KAJAL [address] [place] [address] Health Maintenance Due Date Last Done Comments CT Colonography 1975 Colonoscopy 1975 Colorectal Cancer Screening 1975 FIT DNA/Cologuard 1975 FIT 1975 FOBT 1975 HIV Screening 1975 Sigmoidoscopy 1975 Family Planning (PISQ) 1991 Hepatitis C Screening 1994 Hepatitis B Vaccines (1 of 3 - 19+ 3-dose series) 1995 COVID-19 Vaccine ( season) 2025 05/23/2021, 05/23/2021, 04/29/2021, Additional history exists Influenza Vaccine (#1) 2025 Depression Screening 10/20/2025 10/20/2024, 10/20/19 Disability Screening 11/21/2025 11/21/2024 Zoster Vaccines (1 of 2) 2026 SDOH Screening 05/22/2026 05/22/2025 Alcohol/Substance Use Screening 05/30/2026 05/30/2025 Tobacco Screening 05/30/2026 05/30/2025 Mammogram 06/01/2026 06/01/2025, 0909/2020, 05/29/2021 Pap Smear 08/18/2026 08/18/2023 Cervical Cancer Screening 08/18/2028 HPV/Cotest 08/18/2028 08/18/2023, 10/20/2017 Lipid Panel 05/30/2030 05/30/2025, 040 03/2022, 01/30/2021 DTaP/Tdap/Td Vaccines (2 - Td or Tdap) [...] Procedure Name Priority Date/Time Associated Diagnosis Comments AMB REFERRAL TO GASTROENTEROLOGY Routine 08/18/2025 Colon cancer screening HM MAMMOGRAPHY Routine 06/01/2025 9:01 AM EDT POCT GLUCOSE Routine 05/30/2025 9:22 AM EDT Vertigo HEPATIC FUNCTION PANEL Routine 12:00 AM EDT Primary hypertension LIPID PANEL, STANDARD Routine 05/30/2025 12:00 AM EDT Primary hypertension BASIC METABOLIC PANEL Routine 05/30/2025 12:00 AM EDT Primary hypertension HPV MRNA E6/E7 REFLEX TO HPV 16, 18/45 Routine 08/18/2023 1:05 PM EST PAP SMEAR Routine 08/18/2023 1:05 PM EST from Last 3 Months or Most Recently Relevant to Health Maintenance Results * Referral to Gastroenterology (08/18/2025) María Barron MD OUTPATIENT REFERRAL ORDERABLES F inal Result * Hm Mammography (06/01/2025 9:01 AM EDT) Anatomical Region Laterality Modality Other Alisha Nixon MD HEALTH MAINTENANCE Final Result * POCT Glucose (05/30/2025 9:22 AM EDT) Glucose Blood, POC 108 60 - 200 mg/dL QC Media Lot # [id number] Lot# Expiration Date Blood Capillary blood specimen / Unknown 05/30/2025 9:22 AM EDT us María Barron MD POINT OF CARE TEST ENTER/EDIT OR DERABLES Final Result * Hepatic Function Panel (05/30/2025 12:00 AM EDT) Bilirubin, Total 0.4 0.0 - 1.0 mg/dL [facility] Bilirubin, Direct 0.1 0.0 - 0.5 mg/dL [facility] Aspartate Amino Transferase 13 5 - 31 U/L [facility] Alanine Aminotransferase 14 0 - 31 U/L [facility] Total Protein 6.8 6.5 - 8.0 g/dL [facility] Albumin Level 4.2 3.5 - 5.0 g/dL [facility] Alkaline Phosphatase 77 39 - 117 U/L [facility] Blood Venous blood specimen / Unknown 05/30/2025 05/30/2025 us María Barron MD LAB BLOOD ORDERABLES Final Resul t [facility] [address] [place] [phone] [phone] * (ABNORMAL) Lipid Panel, Standard (05/30/2025 12:00 AM EDT) Triglycerides 187(H) <150 mg/dL [facility] Comment:Desirable Triglyceri de: less than 150 mg/dLBorderline High Triglyceride 150-199 mg/dLHigh Triglyceride: 200-499 mg/dLVery High Triglyceride: greater than or equal to 5OO mg/dL Cholesterol 248(H) <200 mg/dL [facility] Comment:Desirable Cholestero l: less than 200 mg/dLBorderline High Cholesterol: 200-239 mg/dLHigh Cholesterol: greater than 239 mg/dL LDL Cholesterol Calculated 146(H) <100 mg/dL [facility] Comment:Desirable LDL: less than 100 mg/dLNear Optimal/Above Optimal LDL: 110- 129 mg/dLBorderline High LDL: 130-159 mg/dLHigh LDL: 160-189 mg/dLVery High LDL: greater than or equal to 190 mg/dL HDL Cholesterol 65 >40 mg/dL [facility] Comment:Desirable HDL: great er than 40 mg/dL Note: This HDL assay may give artificially low results in patients with liver disease. Blood Venous blood specimen / Unknown 05/30/2025 05/30/2025 María Barron MD LAB BLOOD ORDERABLES Final Resul t Performing Organization Address [facility] Co de Phone Number [facility] [address] [place] [phone] * (ABNORMAL) Basic Metabolic Panel (05/30/2025 12:00 AM EDT) Sodium 138 135 - 145 mmol/L [facility] Potassium 3.8 3.3 - 5.1 mmol/L [facility] Chloride 104 96 - 108 mmol/L [facility] Carbon Dioxide 27 22 - 29 mmol/L [facility] Anion Gap 11(L) 12 - 20 [facility] Urea Nitrogen (BUN) 13 9 - 16 mg/dL [facility] Creatinine, Serum 0.61 0.5 - 1.4 mg/dL [facility] Estimated Glomerular Filt Rate >60 [facility] Comment:Chronic Kidney Disea se: Estimated GFR < 60 mL/min/1.69j4Vpaguq Kidney Disease: Estimated GFR < 15 mL/min/1.73m2 Glucose 96 60 - 115 mg/dL [facility] Calcium 9.2 8.4 - 10.2 mg/dL [facility] Blood Venous blood specimen / Unknown 05/30/2025 05/30/2025 María Barron MD LAB BLOOD ORDERABLES Final Resul t Performing Organization Address [facility] Co de Phone Number [facility] [address] [place] [phone] * HPV mRNA E6/E7 w/Reflex to HPV Genotypes 16, 18/45 (08/18/2023 1:05 PM EST) HPV nRNA E6/E7 Not Detected Not Detected [facility] Comment:Methodology: Transcr iption-Mediated AmplificationThis assay detects E6/E7 viral messenger RNA (mRNA) from 14high-risk HPV types (16,18,31,33,35,39,45,51,52,56,58,59,66,68).Cervical sources are required for HPV testing.If a vaginal source from a patient who has had atotal hysterectomy with removal of cervix wassubmitted, please contact the testing laboratoryfor alternative testing options.For additional information, please refer [email or web address].[employer]/faq/SCD374l3(This link if provided for information/educational purposes only.)THIS TEST WAS PERFORMED AT:[employer] [place] [phone] ANGULO MD HPV mRNA E6/E7 TNP [facility] HPV 16 RNA TNP [facility] HPV 18/45 RNA [facility] 08/18/2023 1:05 PM EST 08/19/2023 8:30 AM EST Irina Dial CNM LAB CYTOLOGY ORDERABLES F inal Result Performing Organization Address City/State/[facility] Co de Phone Number [facility] [address] [place] [phone] * Pap Smear (08/18/2023 1:05 PM EST) 08/18/2023 1:05 PM EST 08/19/2023 8:30 AM EST Narrative [facility] - 09/01/2023 7:58 AM EST ----- ------- Name: Vlad Rodas Age/Sex: 48/F : 1975 Unit#: [id number] Attend Dr: IRINA DIAL CNM Re08/18/23 Status: DEP [facility] Disch: ----- ------- SPEC : [id number] RECD: 08/19/23 STATUS: ALFRED MAS NUM: [id number] NEREIDA: 08/18/[address] [facility] DR: IRINA DIAL [facility] ENTERED: 08/19/23 SP TYPE: Pap Smr OTHR DR: ORDERED: Pap Smear Interpretation Satisfactory for evaluation. Cytolysis noted. No endocervical cells seen. Negative for intraepithelial lesion or malignancy. HPV mRNA E6/E7: NOT DETECTED This assay detects E6/E7 viral messenger RNA (mRNA) from 14 high-risk HPV types (16, 18, 31, 33, 35, 39, 45, 51, 52, 56, 58, 59, 66, 68) HPV testing performed by [facility], [place], [place]. See reference laboratory portion of the EMR for entire report. Clinical Information LMP: Unknown date Previous PAP test: 2017, WN Material Received ThinPrep-Cervical ----- ------- Signed (signature on file) JEIMY Puga (ASC) 09/01/23 0758 ----- ------- END OF REPORT Irina POLLOCK LAB CYTOLOGY ORDERABLES F inal Result [facility] [address] [place] [phone] from Last 3 Months or Most Recently Relevant to Health Maintenance Insurance [email or web address] Care Teams Cathead Worker Relationship Specialty Start Date End Date Rosmery Murray CNP [address] [place] [address] PCP - General Family Medicine 06/28/25
--- OUTSIDE RECORDS SUMMARY | 2025-08-22 10:48 | XMS_ITS | Encounter Summary ---
Author Organization [employer] Address [address] [facility] 7t [place] [address] Care Team Providers Care Personal Service Workers Name Role Phone María Barron MD Primary Care Provider [phone] Rosmery Murray CNP Primary Care Provider [phone] Reason for Visit * Reason Onset Date Comments ER Follow-up 12/03/2023 Encounter Details Date Type Department Care Team (Late st Contact Info) Description 12/03/2023 Telephone [facility] MEDICINE [address] [place] [address] María Barron MD [address] [place], [place] [id number] ER Follow-up Social History Tobacco Use Types [...] ED visit on : Date: 11/30 Hospital: [facility] Seen for: Back pain Patient advised will forward to team nurse for follow up Patient is concerned with the information that was on the discharge paperwork that states has a enlarged liver documented in this encounter Plan of Treatment Upcoming Encounters Date Type Department Care Team (Late st Contact Info) Description 08/23/2025 10:30 AM EST Office Visit [facility] CHC MED & PEDS [address] [place] [address] Rosmery Murray, FRENCH [address] [place] [address] 08/31/2025 9:00 AM EST Clinical Support [facility] CHC MED & PEDS [address] [place] [address] Donna Upton, KAJAL [address] [place] [address] documented as of this encounter Visit Diagnoses Not on filedocumented in this encounter Care Teams Personal Service Workers Relationship Specialty Start Date End Date María Barron MD [address] [place] [address] PCP - General Family Medicine 10/04/13 06/27/25 Rosmery Murray CNP [address] [place] [address] PCP - General Family Medicine 06/28/25 documented as of this encounter
--- OUTSIDE RECORDS SUMMARY | 2025-08-22 10:48 | XMS_ITS | Encounter Summary ---
Author Organization [employer] Address 75 [facility] 7t [place] [address] Care Team Providers Care Student Life Vice President Name Role Phone María Barron MD Primary Care Provider [phone] Rosmery Murray CNP Primary Care Provider [phone] Reason for Visit * Reason Comments Med Refill Encounter Details Date Type Department Care Team ([facility] st Contact Info) Description 01/16/2025 Refill [facility] CHC MED & PEDS [address] [place] [address] María Barron MD [address] [place], [place] [phone] Hypertension, unspecified type Social History Tobacco Use [...] AM EST Office Visit [facility] MED & PEDS [address] [place] [address] Rosmery Murray CNP [address] [place] [address] 08/31/2025 9:00 AM EST Clinical Support [facility] MED & PEDS [address] [place] [address] Donna Upton, KAJAL [address] [place] [address] documented as of this encounter Visit Diagnoses Diagnosis Hypertension, unspecified type documented in this encounter Additional Health Concerns Assessment Noted Time PHQ-9 Depression Total Score: 0 10/20/19 10:22 AM EST documented as of this encounter Care Teams Student Life Vice President Relationship Specialty Start Date End Date María Barron MD [address] [place] [address] PCP - General Family Medicine 10/04/13 06/27/25 Rosmery Murray CNP [address] [place] [address] PCP - General Family Medicine 06/28/25 documented as of this encounter
--- OUTSIDE RECORDS SUMMARY | 2025-08-22 10:48 | XMS_ITS | Data Portability ---
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 Recommend endoscopic nasal biopsy under general anesthesia. Patient has a high anxiety and asked many appropriate questions regarding what is the treatment for this, when was the biopsy and treatment begin. Unfortunately I do not have the answers until after tissue sample is obtained. Incidental finding of a 3 mm deep lobe parotid nodule does not require any intervention or workup at this time as it is too small for sampling. [email or web address] Not available 07/07/2024 12:29:42 12/30/2024 12/30/2024 Patient with episodic positionally induced vertigo. Newhall-Hallpike was positive for vertigo and rotary nystagmus with the head to the right. We discussed that the patient s pattern of symptoms and physical exam findings are most consistent with benign paroxysmal positional vertigo (BPPV). The pathophysiology of BPPV was discussed in detail. Patient was provided with a referral to AT for Omar maneuvers and vestibular therapy.We discussed the fact that treatment of BPPV can require anywhere from 1 to 6 treatments for successful results, and has approximately 95% success rate in eliminating symptoms. BPPV can recur and if the classic positionally induced symptoms do recur, patient can call for further referrals. [email or web address] Not available 12/30/2024 11:16:24 Plan of Treatment Reminders Order Date Submit Date Provider Last Modified By Organization Details Last Modified Time Details Appointments None recorded. Lab None recorded. Referral vestibular therapy referral 2024 025 [facility] Physical Therapy - [facility], [address] [facility], [place], [address], 11:31:02 Procedures None recorded. Surgeries endoscopy, nasal/sinu s, surgical, with biopsy, polypectom y or debridemen t (SURG) 2023 024 [email or web address] Not available 12:35:40 Imaging None recorded. Medication Orders None recorded. Patient TargetsNo targets recorded. Patient InstructionsNo instructions recorded. Reason for Referral Vestibular Therapy Referral for Benign paroxysmal positional vertigo Referring Physician: Shubham Webber, Otolaryngology, Encounter Date: 12/30/2024 Results Created Date Observation Date Name Description Value Unit Range Abnormal Flag Note LastModifiedBy Organization Detail LastModifiedTime 07/08/20 24 06/13/2024 CT, angio gram, head + neck, w/ contr ast No observ ation record ed. [email or web address] Not Available 06/28 15:23:26 07/08/20 24 06/13/2024 MRI, brain + brain stem, w/wo contr ast No observ ation record ed. [email or web address] Not Available 2023 16:36:05 07/08/20 24 06/13/2024 CT, angio gram, head + neck, w/wo contr ast No observ ation record ed. [email or web address] Not Available 2023 16:36:06 01/03/20 25 audio gram No observ ation record ed. BARCODE Not Available 2024 10:19:16 Result Notes None recorded. Problems Name Problem SNOMED Code Status Onset Date Resolution Date Notes Provider Name and Address Organization Details Recorded Time Allergic rhinitis 78737806 Active 2014 Perennial allergic rhinitis; Note: Date Diagnosed : 09/05/2015 9:05 PM (J30.89) Not Available [facility] 03:02:48 Dizziness and giddiness 954415602 Active 2014 Dizziness and giddiness ; Note: Date Diagnosed : 09/05/2015 9:05 PM (R42) Not Available [facility] 4 03:02:50 Tobacco user 353853527 Active 2014 Tobacco use; Note: Date Diagnosed : 09/05/2015 9:06 PM (Z72.0) Not Available [facility] 4 03:02:51 Bilateral tinnitus 56557723717 02 Active 2014 Tinnitus, bilateral ; Note: Date Diagnosed : 09/05/2015 9:05 PM (H93.13) Not Available [facility] 4 03:02:50 Deviated nasal septum 096476922 Active 2014 Deviated nasal septum; Note: Date Diagnosed : 09/05/2015 9:05 PM (J34.2) Not Available [facility] 4 03:02:49 Nasal congestio n 20493316 Active 2014 Nasal congestio n; Note: Date Diagnosed : 09/05/2015 9:05 PM (R09.81) Not Available [facility] 4 03:02:49 Refractor y migraine 118954625 Active 2014 Other migraine, intractab le, without status migrainos us; Note: Date Diagnosed : 09/05/2015 9:05 PM (G43.819) Not Available [facility] 4 03:02:48 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 - [facility] 5 11:16:14 Problem Notes None recorded. Procedures Surgical History Date Name Laterality Status Provider Name and Address Organization Details Recorded Time 5 Air & Speech Audio with Tymps - 15460, 09678 & 22114 completed MARYBETH HOLLAND [address] [facility],CANDACE [facility], [place], [address], [place] - [facility] 12/30/2024 10:37:48 4 Nsl/sins ndsc surg bx polypc completed SHUBHAM WEBBER MD [address] [facility],[place] [address], [place], [address], [facility] - [facility] 08/08/2024 11:50:55 4 ENDOSCOPY, NASAL/SINUS, SURGICAL, WITH BIOPSY, POLYPECTOMY OR DEBRIDEMENT (SURG) completed Tang Oleary PA - [facility] 08/09/2024 09:01:54 4 NasalEndoscopy_ DP completed SHUBHAM WEBBER MD [address] [facility],[place] [address], [place], [address], [facility] 07/07/2024 12:27:32 Imaging Results None recorded. Procedure Notes None recorded. Medical Equipment None Reported. Allergies Allergen ID Allergen Name Allergen Category Reaction Reaction Severity Criticality Documentation Date Start Date Code Code System Note Provider Name and Address Organization Details Recorded Time 723277 Non-stero idal anti-infl ammatory agent (substanc e) medicatio n other Not available Not available 02/09/2024 84845 5008 SNOMED React ion: unkno wn, unspe cifie d;; Not Available [facility] 4 01:11:30 Medications Name Sig Start Date Stop Date Status Note LastModified by Organization Details LastModified Time cyclobenz aprine 10 mg tablet 12/30 completed Not Available Not Available Not Available atorvasta tin 40 mg tablet take 1 tablet by mouth once daily active Not Available Not Available No t Available hydralazi ne 10 mg tablet TAKE 1 TABLET BY MOUTH TWICE DAILY WITH FOOD active Not Available Not Available No t Available albuterol sulfate 2.5 mg/3 mL (0.083 %) solution for nebulizat ion 2014 active Medicati on ID: [id number] D uration Value: 8 Brand Name: Albutero l Sulfate Send Method: E-Prescr ibed Sub s Allowed: subs OK Speci al Instruct ion: inhale contents of 1 vial in nebulize r every 4 to 6 hours if needed M edicatio nGeneric Name: Albutero l Sulfate Not Available Not Available Not Available cetirizin e 10 mg tablet 2019 active Medicati on ID: [id number] D uration Value: 30 Brand Name: syed hahn Send Method: E-Prescr ibed Sub s Allowed: subs OK Speci al Instruct ion: TK 1 T PO QD Medic ationGen ericName : cetirizi ne Not Available Not Available Not Available azithromy richard 250 mg tablet TAKE TWO TABLETS BY MOUTH ON DAY ONE THEN TAKE ONE TABLET DAILY 12/30 completed Not Available Not Available Not Available prednison e 20 mg tablet active Not Available Not Available Not Available butalbita l-acetami nophen-ca ffeine 50 mg-325 mg-40 mg tablet TAKE 1 TO 2 TABLETS BY MOUTH TWICE DAILY active Not Available Not Available No t Available alprazola m 0.5 mg tablet TAKE 1 TABLET BY MOUTH EVERY NIGHT AT BEDTIME FOR ANXIETY. START ON MAY 06 active Not Available Not Available No t Available meclizine 25 mg tablet 12/30 completed Not Available Not Available Not Available benzonata te 100 mg capsule take 1 capsule by mouth three times a day if needed for cough active Not Available Not Available No t Available doxycycli ne monohydra te 100 mg capsule take 1 capsule by mouth twice a day for 10 days 12/30 completed Not Available Not Available Not Available nortripty line 10 mg capsule Take 1 capsule by mouth once a day 2019 active Medicati on ID: [id number] D uration Value: 30 Prescri bed By Name: Lulu perkins MD Brand Name: nortript yline Se nd Method: E-Prescr ibed Sub s Allowed: subs OK Medic ationGen ericName : nortript yline Not Available Not Available Not Available prednison e 50 mg tablet TAKE 1 TABKET BY MOUTH DAILY WITH BREAKFAS T 12/30 completed Not Available Not Available Not Available lidocaine 5 % topical patch apply 1 patch TO THE AFFECTED AREA DAILY. LEAVE ON FOR 12 HOURS AND THEN OFF FOR 12 HOURS. active Not Available Not Available No t Available fluoxetin e 10 mg capsule 12/30 completed Not Available Not Available Not Available omeprazol e 20 mg capsule,d elayed release 2014 active Medicati on ID: [id number] D uration Value: 30 Brand Name: omeprazo le Send Method: E-Prescr ibed Sub s Allowed: subs OK Medic ationGen ericName : omeprazo le Not Available Not Available Not Available hydrochlo rothiazid e 25 mg tablet active Not Available Not Available Not Available Transderm -Scop 1 mg over 3 days transderm al patch APPLY 1 PATCH TOPICALL Y TO THE SKIN EVERY 72 HOURS 12/30 completed Not Available Not Available Not Available diltiazem 30 mg tablet 12/30 completed Medicati on ID: [id number] D uration Value: 30 Brand Name: diltiaze m HCl Send Method: E-Prescr ibed Sub s Allowed: subs OK Medic ationGen ericName : diltiaze m HCl Not Available Not Available Not Available diltiazem 60 mg tablet TAKE 1 TABLET BY MOUTH EVERY 12 HOURS active Not Available Not Available No t Available fluticaso ne propionat e 50 mcg/actua tion nasal spray,sathya pension SHAKE LIQUID AND USE 1 SPRAY IN EACH NOSTRIL TWICE DAILY active Not Available Not Available No t Available Sudafed 12 Hour 120 mg tablet,ex tended release 02/13 completed Medicati on ID: [id number] B rand Name: Sudafed 12 Hour Sen d Method: E-Prescr ibed Sub s Allowed: subs OK Medic ationGen ericName : Sudafed 12 Hour Not Available Not Available Not Available Ventolin HFA 90 mcg/actua tion aerosol inhaler INHALE 2 PUFFS BY MOUTH EVERY 4 HOURS IF NEEDED FOR WHEEZING OR SHORTNES S OF BREATH active Not Available Not Available No t Available oxycodone 5 mg tablet TAKE 1 TABLET BY MOUTH 30 MINUTES PRIOR TO PROCEDUR E 12/30 completed Not Available Not Available Not Available hydroxyzi ne pamoate 25 mg capsule 12/30 completed Not Available Not Available Not Available cyclobenz aprine 5 mg tablet take 1 to 2 tablets by mouth three times a day if needed active Not Available Not Available No t Available Ranitidin e Hcl 02/13 completed Medicati on ID: [id number] B rand Name: ranitidi ne hcl Send Method: E-Prescr ibed Sub s Allowed: subs OK Medic ationGen ericName : ranitidi ne hcl Not Available Not Available Not Available Wal-Dram 50 mg tablet TAKE 1 TABLET BY MOUTH AT BEDTIME NEEDED FOR DIZZINES S active Not Available Not Available No t Available BinaxNOW COVID-19 Ag Self Test kit TEST DIRECTED TODAY 12/30 completed Not Available Not Available Not Available Vitals Date Recorded Body height Provider Name an d Address Organization Details Last Updated DateTime 12/30/2024 160.02 cm ZANA ODETTE PA - [facility] 12/30/2024 10:46:58 Date Recorded Body height Body mass index (BMI) Body weight Provider Name and Address Organization Details Last Updated DateTime 07/07/2024 160.02 cm 33.7 kg/m2 84844.55 g Renetta Carbajal PA - [facility] 07/07/2024 12:10:30 Social History None recorded. Functional Status None recorded. Mental Status None recorded. Family History Nothing Reported. Medical History No medical history recorded. Gynecological HistoryNo gynecological history recorded. Obstetrics History GPAL:G 0 P 0 0 0 0 Past Encounters Encounter ID Performer Location Encounter Start Date Encounter Closed Date Diagnosis/Indication Diagnosis SNOMED-CT Code Diagnosis ICD10 Code Diagnosis IMO Codes Diagnosis Note [id number] SHUBHAM WEBBER MD [facility] [address] [address] 07/07/2024 10:49:07 07/07/2024 12:30:11 Neoplasm of uncertain behavior of nasopharynx 06930596 D37.05 [id number] SHUBHAM WEBBER MD [facility] [address] [address] 12/30/2024 10:17:42 12/30/2024 11:18:06 Bilateral tinnitus 8431146079 102 H93.13 Right Ear:Normal hearing with excellent speech discrimina tion.Type A tympanogra m.Left Ear:Normal hearing with excellent speech discrimina tion.Type A tympanogra m. Benign par oxysmal positional vertigo 494706628 H81.11 Health Concerns Section Related Observation LastModified by Organization Detai ls LastModified Time None Recorded Concern Status LastModified by Organization Details LastModified Time None Recorded Advance Directives Directive None Recorded Payers Insurance Date Sequence Insurance Name Policy Number Policy [place] Covered Member ID [place] Member ID Guarantor Name 12/27/2024 1 [place] Vlad Rodas [id number] Vlad Rodas Notes Date Note Type Note Provider Name and Address Organization Details Recorded Time 07/07/2024 text/html ROS as noted in the HPI Nasopharyngeal masssx of nasal congestion and occasional left epistaxisblurry vision from migraine according to aquarium specialist. also cataract in left eye. workup for dizzy lead to imaging with incidental finding of the nasopharynx mass06/13/2024 MRI brain noncontrast [facility] mm T2 hyperintense nodule deep lobe right parotid. Fullness in the posterior nasopharynx, slight exophytic lobulated contour. 06/13/2024 CT head noncontrast, CTA head with contrast, CTA neck with contrast [facility]amProminent pedunculated soft tissue posterior nasopharynx measuring 21 x 18 mm. Borderline enlarged bilateral cervical lymph nodes SHUBHAM WEBBER MD [address] [facility],[address], [address], [facility] - [facility] 07/07/2024 12:30:26 12/30/2024 text/html ROS as noted in the HPI dizzytriggered with hair washing.feels like imbalance like on a boatduration minutes to hoursfrequency near dailyonset about June 2024trial meclizine with no reliefno head traumaneurology apt rescheduled to March 2025tinnitus L>R, steady non pulsatile, lasting 15 sec at a time nasopharyngeal ajlgkn56/11/24 [facility], Akbar, nasopharynx bx - benign SHUBHAM WEBBER MD [address] [facility],[place] [address], [place], [address], [place] - [facility] 12/30/2024 11:17:31 OBGyn Episode No OBEpisode recorded.
--- OUTSIDE RECORDS SUMMARY | 2025-08-22 10:48 | XMS_ITS | Encounter Summary ---
Author Organization [employer] Address [address] [facility] 7t [place] [address] Care Team Providers Care Environmental Services Tech Name Role Phone María Barron MD Primary Care Provider [phone] Rosmery Murray CNP Primary Care Provider [phone] Reason for Visit * Reason Comments Med Refill Encounter Details Date Type Department Care Team ([facility] st Contact Info) Description 07/30/2023 Refill [facility] CHC MED & PEDS [address] [place] [address] María Barron MD [address] [place] [address] Anxiety Social History Tobacco Use Types Packs/Day [...] 10:30 AM EST Office Visit [facility] MED & PEDS [address] [place] [address] Rosmery Murray CNP [address] [place] [address] 08/31/2025 9:00 AM EST Clinical Support [facility] MED & PEDS [address] [place] [address] Donna Upton, RN [address] [place] [address] documented as of this encounter Visit Diagnoses Diagnosis Anxiety Anxiety state, unspecified documented in this encounter Care Teams Environmental Services Tech Relationship Specialty Start Date End Date María Barron MD [address] [place] [address] PCP - General Family Medicine 10/04/13 06/27/25 Rosmery Murray CNP [address] [place] [address] PCP - General Family Medicine 06/28/25 documented as of this encounter
--- OUTSIDE RECORDS SUMMARY | 2025-08-22 10:48 | XMS_ITS | Encounter Summary ---
Author Organization [employer] Address [address] [facility] 7 [place] [address] Care Team Providers Care Sheet Pile Driver Operator Name Role Phone Rosmery Murray CNP Primary Care Provider [phone] Reason for Visit * Reason Onset Date Comments chart prep 08/21/2025 Encounter Details Date Type Department Care Team ([facility] Contact Info) Description 08/21/2025 Telephone [facility] CHC MED & PEDS [address] [place], [place] [phone] Rosmery Murray CNP [address] [place] [address] chart prep Social History Tobacco Use Types [...] encounter Miscellaneous Notes * Telephone Encounter - Lisa Saxena [place] - 08/21/2025 3:49 PM EST Chart Prep Labs: not done Images: not applicable Referrals: not applicable Vaccines due: Covid, Flu, and Hep B Screenings: colonoscopy, STI screening, and LMP Overdue care gaps: Not applicable documented in this encounter Plan of Treatment Upcoming Encounters Date Type Department Care Team (Late st Contact Info) Description 08/23/2025 10:30 AM EST Office Visit [facility] MED & PEDS [address] [place] [address] Rosmery Murray CNP [address] [place] [address] 08/31/2025 9:00 AM EST Clinical Support [facility] MED & PEDS [address] [place] [address] Donna Upton, KAJAL [address] [place] [address] documented as of this encounter Visit Diagnoses Not on filedocumented in this encounter Additional Health Concerns Assessment Noted Time PHQ-9 Depression Total Score: 0 10/20/19 25 10:22 AM EST documented as of this encounter Care Teams Sheet Pile Driver Operator Relationship Specialty Start Date End Date Rosmery Murray CNP [address] [place] [address] PCP - General Family Medicine 06/28/25 documented as of this encounter
--- OUTSIDE RECORDS SUMMARY | 2025-08-22 10:48 | XMS_ITS | Encounter Summary ---
Author Organization [facility] Address [address] [facility] [address] [place] [address] Care Team Providers Care Supervisor Hydrochloric Area Name Role Phone María Barron MD Primary Care Provider [phone] Rosmery Murray CNP Primary Care Provider [phone] Reason for Visit * Reason Onset Date Comments Call Back Request 11/13/2023 Encounter Details Date Type Department Care Team (Late st Contact Info) Description 11/13/2023 Telephone [facility] MEDICINE [address] [place] [address] María Barron MD [address] [place], [place] [id number] Call Back Request Social History Tobacco Use [...] 12/01/2023 3:22 PM EST Referral faxed to [facility] for review. * Telephone Encounter - Cathy Miller CNM - 11/13/2023 1:52 PM EST Referred to [facility] for fibroids which have increased in size. Please see referral notes. If unable to be seen at [facility], please ask referrals where else she can be seen. Thanks! * Telephone Encounter - Dharmesh Pascal - 11/13/2023 11:43 AM EST Tc from Mitra Cross from [facility] [place] women requesting a call back for clarification on why the patient was referred to them and to notify the PCP that they do not accept Medicaid insurance please call Mitra at [phone] documented in this encounter Plan of Treatment Upcoming Encounters Date Type Department Care Team ([facility] st Contact Info) Description 08/23/2025 10:30 AM EST Office Visit [facility] CHC MED & PEDS [address] [place] [address] Rosmery Murray, FURNACE OPERATOR [employer] TENDER [address] [place] [address] 08/31/2025 9:00 AM EST Clinical Support [facility] MED & PEDS [address] [place] [address] Donna Upton, KAJAL [address] [place] [address] documented as of this encounter Visit Diagnoses Not on filedocumented in this encounter Care Teams Supervisor Hydrochloric Area Relationship Specialty Start Date End Date María Barron MD [address] [place] [id number] PCP - General Family Medicine 10/04/13 06/27/25 Rosmery Murray CNP [address] [place] [address] PCP - General Family Medicine 06/28/25 documented as of this encounter
--- OUTSIDE RECORDS SUMMARY | 2025-08-22 10:48 | XMS_ITS | Encounter Summary ---
Author Organization [employer] [employer] Address [address] [facility] [address] [place] [address] Care Team Providers Care Video Tape Duplicator Name Role Phone María Barron MD Primary Care Provider [phone] Rosmery Murray CNP Primary Care Provider [phone] Reason for Visit * Reason Comments Med Refill Encounter Details Date Type Department Care Team ([facility] st Contact Info) Description 11/25/2023 Refill [facility] CHC MED & PEDS [address] [place] [address] Alcides Ku MD [address] [place] [address] Anxiety Social History Tobacco Use Types Packs/Day [...] Description 08/23/2025 10:30 AM EST Office Visit [facility] MED & PEDS [address] [place] [address] Rosmery Murray CNP [address] [place] [address] 08/31/2025 9:00 AM EST Clinical Support [facility] MED & PEDS [address] [place] [address] Donna Upton, RN [address] [place] [address] documented as of this encounter Visit Diagnoses Diagnosis Anxiety Anxiety state, unspecified documented in this encounter Care Teams Video Tape Duplicator Relationship Specialty Start Date End Date María Barron MD [address] [place] [id number] PCP - General Family Medicine 10/04/13 06/27/25 Rosmery Murray CNP [address] [place] [address] PCP - General Family Medicine 06/28/25 documented as of this encounter
[2025-08-22 14:17] LABS: MANUAL DIFF FLAG NO
[2025-08-22 14:28] LABS: Hematocrit 39.4 % (37.0-47.0); Hemoglobin 13.1 g/dl (12.0-16.0); Imm Gran Abs Auto 0.03 X10*3/uL (0.00-0.03); Imm Gran Pct Auto 0.4 % (0.0-0.4); Lymphocytes Absolute Auto 1.8 X10*3/uL (1.2-4.9); Mean Corpuscular HGB Conc 33.2 g/dl (31.0-35.0); Mean Corpuscular Hemoglobin 30.4 pg (27.0-33.0); Mean Corpuscular Volume 91.4 fL (80.0-98.0); NRBC Abs Auto 0.000 X10*3/uL (0.0-0.012); NRBC Pct Auto 0.0 /100WBC (0.0-0.2); Platelet Count 307 X10*3/uL (160-400); Red Blood Count 4.31 X10*6/uL (4.20-5.50); White Blood Count 7.1 X10*3/uL (4.8-10.8)
[2025-08-22 14:54] LABS: Iron 111 mcg/dL (30-160); Percent Iron Saturation 38 % (15-50); Total Iron Binding Capacity 293 mcg/dL (228-428); Unsaturated Iron Binding 182 ug/dL
[2025-08-22 15:11] LABS: Ferritin 73 ng/mL (10-250)
== END 2025-08-22 09:27 | disposition home or self-care (01) ==
LOC: HO.CHCLDS 09:26
DX: R42 Dizziness and giddiness (principal)
CPT/HCPCS: 36415; 82728; 83036; 83540; 84443; 85025